=== PATIENT | female | born 1960 | race Caucasian/White ===

== ENCOUNTER 2023-10-09 08:24 | Outpatient (OUT) | payer OTHER, SELFPAY ==
[2023-10-09 08:56] LABS: Basophils Percent Auto 0.6 % (0.2-2.0); Eosinophils Absolute Auto 0.2 10^3/uL (0.0-0.7); Eosinophils Percent Auto 3.3 % (0.9-7.0); Hematocrit 36.3 % (36.0-48.0); Hemoglobin 11.7 g/dL (12.0-16.0); Immature Granulocytes Abs Auto 0.02 10^3/uL (0.00-0.03); Immature Granulocytes Pct Auto 0.3 % (0.0-0.5); Lymphocytes Absolute Auto 1.2 10^3/uL (1.2-3.8); Lymphocytes Percent Auto 19.4 % (20.5-60.0); Mean Corpuscular HGB Conc 32.2 g/dL (29.9-35.2); Mean Corpuscular Hemoglobin 31.5 pg (26.7-34.0); Mean Corpuscular Volume 97.8 fL (81.0-99.0); Mean Platelet Volume 9.7 fL (9.5-13.5); Monocytes Absolute Auto 0.5 10^3/uL (0.3-0.8); Neutrophils Absolute Auto 4.3 10^3/uL (1.4-6.5); Neutrophils Percent Auto 68.4 % (43.0-75.0); Platelet Count 184 10^3/uL (150-450); Red Blood Count 3.71 10^6/uL (4.20-5.40); Red Cell Distribution Width 13.2 % (11.0-15.0); White Blood Count 6.3 10^3/uL (4.0-11.0)
[2023-10-09 09:59] LABS: Thyroid Stimulating Hormone 1.241 uIU/mL (0.358-3.740)
== END 2023-10-09 08:25 | disposition home or self-care (01) ==
LOC: LAB 08:26
PROVIDERS: PCP Internal Medicine; Visit Provider Internal Medicine
DX: Z00.00 Encounter for general adult medical examination without abnormal findings (principal)
CPT/HCPCS: 36415; 84443; 85025

== ENCOUNTER 2023-10-28 09:04 | Outpatient (OUT) | payer OTHER, SELFPAY ==
--- NOTE | 2023-10-28 | XR_ITS ---
The [address] [address] Patient Name: MARYLU RESENDIZ MRN: [id number] date: 1960 Sex: F Assigned Patient Location: [facility] Current Patient Location: [facility] Accession/Order Number: [id number] Exam Date: 10/28/2023 09:10 Report Date: 10/28/2023 09:38 At the request of: ERA PAYNE Procedure: XR foot LT min 3V PROCEDURE: XR foot LT min 3V COMPARISON: None. HISTORY: LEFT FOOT PAIN FINDINGS: BONES:No acute fracture or dislocation. Moderate degenerative changes at the second and third tarsometatarsal joints with joint space narrowing and subchondral cystic changes without significant proliferative degenerative change. Moderate enthesopathic spurring of the calcaneus at the Achilles and plantar insertions SOFT TISSUES:Negative. No visible soft tissue swelling. EFFUSION:None visible. OTHER: Negative. XR/XR foot LT min 3V IMPRESSION: Moderate degenerative changes most significant second and third tarsometatarsal joints Electronically authenticated by: DASH SHUKLA Date: 10/28/2023 09:38
--- OUTSIDE RECORDS SUMMARY | 2023-10-28 09:08 | XMS_ITS | CCD ---
Author Name Unknown Address [address] [facility] [address] [place] [address] Organization [facility] Care Team Providers Care Panel Monitor Name Role Phone WATSON, DR LONGORIA Consulting Unavailable BALL, DR LONGORIA Attending Unavailable BALL, DR LONGORIA Admitting Unavailable BALL, DR LONGORIA Primary Care Unavailable REQUEST, DR JOSHI LISTED Admitting Unavaila ble REQUEST, DR JOSHI LISTED Consulting Unavaila ble REQUEST, DR JOSHI LISTED Attending Unavaila ble WATSON, DR LONGORIA Primary Care Unavailable Irma Mc Unavailable DO Sonido Chaudhari Primary Care Provider [phone] MD Teo Rivera Attending Provider Sonido Chaudhari Unavailable DO Sonido Chaudhari Primary Care Provider [phone] MD Irma Mc Attending Provider [phone] DO Sonido Chaudhari Primary Care Provider [phone] MD Teo Rivera Attending Provider Irma Mc Attending Unavailable Sonido Chaudhari Primary Care Unavailable Irma Mc Admitting Unavailable Teo Rivera Admitting Unavailable Teo Rivera Attending Unavailable Sonido Chaudhari Primary Care Unavailable TEO RIVERA Attending Unavailable Sonido Chaudhari Primary Care Unavailable Allergies Allergy Classification Reported Allergen(s) Allergy Type Date of Onset Reaction(s) Facility (2 sources) patient allergy list reviewed by nurse or physicia Propensity to adverse reactions Comment:Done [employer] Other (2 sources) Allergies Reconciled Propensity to adverse reactions Unknown [employer] Other (1 source) No Known Medication Allergies; Translations: [No Known Medication Allergies] Propensity to adverse reactions to drug (disorder) [facility] Repository Medications Current Medications Medication Drug Class(es) Dates Sig (Normalized) Sig (Original) 0.5 ML semaglutide 0.5 MG/ML Auto-Injector [Wegovy] (8 sources) Start: 11-02-2022 inject 0.5 mL by subcutaneous injection every week Wegovy 0.25 MG/0.5ML 0.5 mL Subcutaneous weekly for 30 day(s) Oct, Active 0.5 ML tirzepatide 5 MG/ML Auto-Injector [Mounjaro] (8 sources) Start: 09-28-2022 inject 2.5 mg by subcutaneous injection every week Mounjaro 2.5 MG/0.5ML 2.5mg Subcutaneous weekly for 28 days Sep, Active acetaminophen 325 mg / HYDROcodone bitartrate 5 mg oral tablet (3 sources) Opioid Agonist Start: 03-06-2021 take 1 tablet by mouth every four to six hours Hydrocodone-Acetamin ophen Active 1 - 2 TAB PO EVERY 4-6 HOURS 50 7 March 06, 2021 atorvastatin 20 mg oral tablet (15 sources) HMG-CoA Reductase Inhibitor take 1 tablet by mouth once daily Atorvastatin Calcium 20 MG Take 1 tablet by mouth once daily for 30 Active azithromycin 250 mg oral tablet (3 sources) Macrolide Antimicrobial Start: 09-10-2023 Azithromycin 250 MG as directed Orally daily for 5 days Aug, Active cholecalciferol 0.025 mg oral tablet (3 sources) Vitamin D Start: 08-24-2018 take 1 tablet by mouth once daily Cholecalciferol (Vitamin D3) (Vitamin D3) 1,000 unit Tablet Active 1000 UNIT PO Daily August 24, 2018 1:00am doxycycline hyclate 100 mg oral capsule (11 sources) Tetracycline-class Drug Start: 09-28-2022 take 1 capsule by mouth twice daily Doxycycline Hyclate 100 MG 1 capsule Orally twice daily for 7 days Sep, Active Start: 03-06-2021 take 100 mg by mouth twice daily Doxycycline Hyclate Active 100 MG PO Twice daily 10 5 March 06, 2021 12:00am escitalopram 10 mg oral tablet (12 sources) Serotonin Reuptake Inhibitor take 1 tablet by mouth every twenty-four hours Escitalopram Oxalate 10 MG 1 tablet Orally Once a day Active Glucos Sul 5mwo-Apw-Gedrp-C-Mn (Glucosamine Chondroitin) 550-30-1 mg Capsule (3 sources) Start: 02-26-20 21 take 1 capsule by mouth once daily Glucos Sul 0wgc-Lwh-Duduj-C-Mn (Glucosamine Chondroitin) 550-30-1 mg Capsule Active 1 CAP PO Daily February 25, 2021 12:00am levothyroxine sodium 0.137 mg oral tablet (19 sources) l-Thyroxine Start: 08-24-20 18 take 137 ug by mouth once daily Levothyroxine Active 137 MCG PO Daily August 24, 2018 1:00am take 1 tablet by mouth once estephania y Levothyroxine Sodium 137 MCG Take 1 tablet by mouth once daily Active lisinopril 5 mg oral tablet (19 sources) Angiotensin Converting Enzyme Inhibitor Start: 02-25-2021 take 5 mg by mouth once daily Lisinopril Active 5 MG PO Daily February 25, 2021 12:00am Multivitamin preparation (3 sources) Start: 08-24-2018 take 1 tablet by mouth once daily Multivitamin Active 1 TAB PO Daily August 24, 2018 1:00am predniSONE 20 mg oral tablet (2 sources) Start: 01-11-2023 predniSONE 20 MG 1 tablet Orally tid w/ food x 3 days, then bid w/ food x 3 days, then qd w/ food x 3 days for 9 Dec, Active triamcinolone acetonide 0.001 mg/mg topical ointment (20 sources) Corticosteroid Start: 01-11-2023 Triamcinolone Acetonide 0.1 % 1 application Externally Twice a day for 14 days Dec, Active Start: 03-28-2019 Kenalog -40 mg Mar, 40 mg Start: 02-08-2018 Kenalog -40 mg January, 10 mg zolpidem tartrate 5 mg oral tablet (11 sources) gamma-Aminobutyric Acid-ergic Agonist Start: 01-25-2023 take 1 tablet by mouth at bedtime as needed Zolpidem Tartrate 5 MG 1 tablet at bedtime as needed Orally PRN for 30 days January, Active take 1 tablet by christopher th every twenty-four hours Zolpidem Tartrate 5 MG 1 tablet at bedtime as needed Orally Once a day Active {20 (nirmatrelvir 150 MG Ora l Tablet) / 10 (ritonavir 100 MG Oral Tablet) } Pack [Paxlovid 5-Day] (7 sources) take 3 tablets by mo uth every twelve hours Paxlovid (300/100) 20 x 150 MG & 10 x 100MG 3 tablets Orally Twice a day for 5 days Active Completed/Discontinued Medications Medication Drug Class(es) Dates Sig (Normalized) Sig (Original) alendronic acid 70 mg oral tablet (3 sources) Bisphosphonate Start: 08-24-2018 End: 02-25-2021 take 70 mg by mouth every week Alendronate Discontinued 70 MG PO every week August 24, 2018 1:00am February 25, 2021 2:10pm amoxicillin 875 mg / clavulanate 125 mg oral tablet (7 sources) Penicillin-class Antibacterial Start: 03-01-2023 take 1 tablet by mouth every twelve hours Amoxicillin-Pot Clavulanate 875-125 MG 1 tablet Orally every 12 hrs for 10 day(s) Feb, Not-Taking/PRN thiamine 250 mg oral tablet (3 sources) Start: 08-24-2018 End: 02-25-2021 take 1 tablet by mouth once daily Thiamine Hcl (Vitamin B1) (Vitamin B-1) 250 mg Tablet Discontinued 250 MG PO Daily August 24, 2018 1:00am February 25, 2021 2:10pm Problems Active Problems Problem Classification Problem Date Documented Date Episodic/Chronic Acute bronchitis (4 sources) Acute bronchitis due to other specified organisms; Translations: [Acute bronchitis] Episodic Allergic reactions (18 sources) Inflammatory dermatosis; Translations: [Other specified dermatitis] Episodic Anxiety disorders (17 sources) Generalized anxiety disorder; Translations: [Generalized anxiety disorder] Chronic Chronic obstructive pulmonary disease and bronchiectasis (17 sources) Bronchitis; Translations: [Bronchitis, not specified as acute or chronic] Episodic Disorders of lipid metabolism (20 sources) Familial hypercholesterolemia; Translations: [Pure hypercholesterolemia] Onset: 01-29-2015 Chronic Esophageal disorders (8 sources) Esophageal reflux finding; Translations: [Esophageal reflux] Onset: 02-12-2015 Chronic Esophageal disorders (11 sources) Esophageal disorders; Translations: [Gastroesophageal reflux disease with esophagitis without hemorrhage] Essential hypertension (20 sources) Essential hypertension; Translations: [Essential (primary) hypertension] Chronic Immunizations and screening for infectious disease (2 sources) Vaccination given; Translations: [Encounter for immunization] Episodic Inflammation; infection of eye (except that caused by tuberculosis or sexually transmitteddisease) (2 sources) Acute conjunctivitis; Translations: [Unspecified acute conjunctivitis, unspecified eye] Episodic Joint disorders and dislocations; trauma-related (2 sources) Chondromalacia of patella; Translations: [Chondromalacia of patella] Onset: 11-12-2015 Chronic Menopausal disorders (2 sources) Primary ovarian failure; Translations: [Other primary ovarian failure] Onset: 06-08-2017 Chronic Miscellaneous mental health disorders (15 sources) Primary insomnia; Translations: [Primary insomnia] Chronic Mycoses (2 sources) Tinea corporis; Translations: [Tinea corporis] Episodic Nonmalignant breast conditions (2 sources) Fibrocystic disease of breast; Translations: [Diffuse cystic mastopathy of unspecified breast] Onset: 01-29-2015 Chronic Osteoarthritis (20 sources) Osteoarthrosis of the carpometacarpal joint of the thumb; Translations: [Unilateral primary osteoarthritis of first carpometacarpal joint, right hand] Onset: 07-08-2021 Resolved: 07-08-2021 Chronic Osteoporosis (15 sources) Primary osteoporosis; Translations: [Age-related osteoporosis without current pathological fracture] Chronic Other connective tissue disease (16 sources) Trigger thumb of right hand; Translations: [Trigger thumb, right thumb] Episodic Other connective tissue disease (1 source) Pain in right hand Episodic Other nervous system disorders (16 sources) Carpal tunnel syndrome of left wrist; Translations: [Carpal tunnel syndrome, left upper limb] Chronic Other nervous system disorders (16 sources) Carpal tunnel syndrome of right wrist; Translations: [Carpal tunnel syndrome, right upper limb] Chronic Other nervous system disorders (2 sources) Carpal tunnel syndrome, right upper limb; Translations: [Right carpal tunnel syndrome G56.01] Onset: 07-08-2021 Resolved: 07-08-2021 Chronic Other nervous system disorders (1 source) Carpal tunnel syndrome, left upper limb; Translations: [Carpal tunnel syndrome, left G56.02] Onset: 07-08-2021 Resolved: 07-08-2021 Chronic Other nervous system disorders (3 sources) Carpal tunnel syndrome; Translations: [Carpal tunnel syndrome, unspecified upper limb] 03-06-2021 Chronic Other nervous system disorders (2 sources) Meralgia paresthetica; Translations: [Meralgia paresthetica] Onset: 03-12-2017 Chronic Other nervous system disorders (3 sources) Pain in limb; Translations: [Other acute postprocedural pain] 03-06-2021 Episodic Other nutritional; endocrine; and metabolic disorders (17 sources) Obesity; Translations: [Obesity, unspecified] Chronic Other nutritional; endocrine; and metabolic disorders (3 sources) Obesity, unspecified Chronic Other nutritional; endocrine; and metabolic disorders (2 sources) Simple obesity ; Translations: [Other obesity due to excess calories] Onset: 01-29-2015 Chronic Other nutritional; endocrine; and metabolic disorders (4 sources) Body mass index 30+ - obesity; Translations: [Body mass index 30.0-30.9, adult] Onset: 01-29-2015 Chronic Other nutritional; endocrine; and metabolic disorders (2 sources) Obese class I; Translations: [Body mass index 32.0-32.9, adult] Onset: 01-29-2015 Chronic Other screening for suspected conditions (not mental disorders or infectious disease) (6 sources) Patient encounter status; Translations: [Encounter for screening for malignant neoplasm of colon] Onset: 01-29-2015 08-26-2018 Episodic Other upper respiratory infections (6 sources) Acute maxillary sinusitis; Translations: [Acute maxillary sinusitis, unspecified] Onset: 02-12-2015 Episodic Spondylosis; intervertebral disc disorders; other back problems (6 sources) Cervical spondylosis without myelopathy; Translations: [Spondylosis without myelopathy or radiculopathy, cervical region] Onset: 03-12-2017 Chronic Syncope (17 sources) Vasovagal syncope; Translations: [Syncope and collapse] Episodic Systemic lupus erythematosus and connective tissue disorders (2 sources) Autoimmune disease; Translations: [Autoimmune disease, not elsewhere classified] Onset: 01-29-2015 Chronic Thyroid disorders (20 sources) Autoimmune thyroiditis; Translations: [Autoimmune thyroiditis] Onset: 01-29-2015 Chronic Unclassified (1 source) Encounter for screening mammogram for malignant neoplasm of breast; Translations: [Encounter for screening mammogram for malignant neoplasm of breast] Onset: 05-26-2023 Unclassified (1 source) Pain in right hand; Translations: [Pain in right hand] Onset: 01-08-2023 Past or Other Problems Problem Classification Problem Date Documented Date Episodic/Chronic Bacterial infection; unspecified site (2 sources) Bacterial infectious disease; Translations: [Bacterial infection, unspecified, in conditions classified elsewhere and of unspecified site] Onset: 04-22-2017 Episodic Other connective tissue disease (1 source) Pain in right finger(s); Translations: [Pain of right thumb M79.644] Onset: 07-08-2021 Resolved: 07-08-2021 Episodic Other connective tissue disease (2 sources) Pain in left lower limb; Translations: [Pain in left leg] Onset: 03-12-2017 Episodic Other non-traumatic joint disorders (1 source) Pain in left wrist; Translations: [Left wrist pain M25.532] Onset: 07-08-2021 Resolved: 07-08-2021 Episodic Other non-traumatic joint disorders (1 source) Pain in right wrist; Translations: [Right wrist pain M25.531] Onset: 07-08-2021 Resolved: 07-08-2021 Episodic Other nutritional; endocrine; and metabolic disorders (2 sources) Overweight; Translations: [Overweight] Onset: 01-29-2015 Episodic Other nutritional; endocrine; and metabolic disorders (2 sources) Body mass index 25-29 - overweight; Translations: [Body mass index 29.0-29.9, adult] Onset: 01-29-2015 Episodic Residual codes; unclassified (1 source) Other specified postprocedural states; Translations: [Other specified postprocedural states Z98.890] Onset: 07-08-2021 Resolved: 07-08-2021 Episodic Residual codes; unclassified (2 sources) Sleep disorder; Translations: [Persistent disorder of initiating or maintaining sleep] Onset: 02-14-2019 Episodic Sprains and strains (2 sources) Strain of muscle of left hip; Translations: [Strain of muscle, fascia and tendon of left hip, initial encounter] Onset: 02-19-2017 Episodic Unclassified (2 sources) Long-term current use of drug therapy; Translations: [Long-term (current) use of other medications] Onset: 03-22-2017 Unclassified (2 sources) Exposure to acute respiratory syndrome coronavirus 2; Translations: [Contact with and (suspected) exposure to COVID-19] Resolved: 07-08-2020 Viral infection (2 sources) Viral disease; Translations: [Unspecified viral infection, in conditions classified elsewhere and of unspecified site] Onset: 02-14-2019 Episodic Viral infection (15 sources) Disease caused by 2019-nCoV; Translations: [COVID-19] Results Test Name Value Interpretation Reference Range Facility Consent [facility] 08-24-2023 Consent Forms [id number] 1.00OTGTIFF Normal [facility] CMP Standardon 07-15-2023 eGFR Non AA >60 Invalid Interpretation Code [facility] Comment on above: Performed By: #### 2 [id number], 4013421, 9852181, 2660631, [id number], [id number], 6372412 #### [facility] (DEFAULT) [address] [place] [address] eGFR AA >60 Invalid Interpretation Code [facility] Comment on above: Performed By: #### 2 876132, 0844782, 6728179, 0086781, [id number], [id number], 1262408 #### [facility] (DEFAULT) [address] [place] [address] Albumin [Mass/Vol] 4.0 g/dL Normal 3.5-5.0 [facility] Comment on above: Performed By: #### 2 013109, 9786825, 2485857, 2718934, [id number], [id number], 4683268 #### [facility] (DEFAULT) [address] [place] [address] 97100 Albumin/Globulin [Mass ratio] 1.1 {ratio} Low 1.4-2.6 [facility] Comment on above: Performed By: #### 2 807007, 4815953, 0713009, 9866552, [id number], [id number], 2120691 #### [facility] (DEFAULT) [address] [place] [address] 17683 Alk Phos 85 IU/L Normal 32-91 [facility] Comment on above: Performed By: #### 2 939141, 7420435, 0081516, 4363613, 8305498680, [id number], 8889978 #### [facility] (DEFAULT) [address] [place] [address] 83249 ALT [Catalytic activity/Vol] 45.0 U/L Normal 14.0-54.0 [facility] Comment on above: Performed By: #### 2 664779, 6367684, 7927082, 3623420, 7832382477, 1825353157, 0264055 #### [facility] (DEFAULT) [address] [place] [address] 37644 Anion gap [Moles/Vol] 10.9 mmol/L Normal 5.0-19.0 [facility] Comment on above: Performed By: #### 2 874440, 4588182, 8385881, 9676133, 2517291720, [id number], 0224456 #### [facility] (DEFAULT) [address] [place] [address] 17212 AST [Catalytic activity/Vol] 31 U/L Normal 15-41 [facility] Comment on above: Performed By: #### 2 170465, 3492457, 1791617, 2218379, 6099891697, 5962738290, 1129359 #### [facility] (DEFAULT) [address] [place] [address] 79805 Bili Total 0.5 mg/dL Normal 0.3-1.2 [facility] Comment on above: Performed By: #### 2 775835, 7510479, 8422346, 1558510, 8270938584, 2373054869, 6088700 #### [facility] (DEFAULT) [address] [place] [address] 35201 Calcium [Mass/Vol] 9.4 mg/dL Normal 8.9-10.3 [facility] Comment on above: Performed By: #### 2 359404, 0058121, 8031464, 5267599, 7062008075, 7429659329, 5282621 #### [facility] (DEFAULT) [address] [place] [address] 91043 Chloride [Moles/Vol] 104 mmol/L Normal 101-111 [facility] Comment on above: Performed By: #### 2 162286, 1106438, 6988782, 8663164, 9850188837, 8541403235, 9865336 #### [facility] (DEFAULT) [address] [place] [address] 31718 CO2 [Moles/Vol] 26 mmol/L Normal 21-32 [facility] Comment on above: Performed By: #### 2 552488, 1811740, 6087514, 1134376, 1362123246, 2440428901, 0339633 #### [facility] (DEFAULT) [address] [place] [address] 62277 Creatinine [Mass/Vol] 0.77 mg/dL Normal 0.60-1.30 [facility] Comment on above: Performed By: #### 2 009485, 4970968, 8683662, 1206076, 1601189854, 1305824457, 7512073 #### [facility] (DEFAULT) [address] [place] [address] 71525 Globulin (S) [Mass/Vol] 3.4 g/dL Normal 1.5-4.3 [facility] Comment on above: Performed By: #### 2 630565, 5844311, 7797944, 2195686, 1313254386, [id number], 4593719 #### [facility] (DEFAULT) [address] [place] [address] 73150 Glucose [Mass/Vol] 100.0 mg/dL Normal 74.0-118.0 [facility] Comment on above: Performed By: #### 2 217966, 2590082, 5925871, 8244665, 6980703563, 7193558218, 6821694 #### [facility] (DEFAULT) [address] [place] [address] 23954 Osmolality 277 mOsm/L Invalid Interpretation Code [facility] Comment on above: Performed By: #### 2 089916, 4071339, 8858187, 3811687, 4388975561, 5089114052, 6972073 #### [facility] (DEFAULT) [address] [place] [address] 45688 Potassium [Moles/Vol] 3.9 mmol/L Normal 3.6-5.1 [facility] Comment on above: Performed By: #### 2 829321, 6738641, 3392061, 8742288, 0925958370, 1764069703, 5312148 #### [facility] (DEFAULT) [address] [place] [address] 33154 Protein [Mass/Vol] 7.4 g/dL Normal 6.5-8.1 [facility] Comment on above: Performed By: #### 2 632313, 7493762, 1239233, 6239276, 3364983686, 9288839605, 6784615 #### [facility] (DEFAULT) [address] [place] [address] 88655 Sodium [Moles/Vol] 137.0 mmol/L Normal 136.0-144.0 [facility] Comment on above: Performed By: #### 2 826464, 5589522, 9682915, 3014450, 2518231912, 0239928234, 1228934 #### [facility] (DEFAULT) [address] [place] [address] 89665 Urea nitrogen [Mass/Vol] 21 mg/dL Normal 8-26 [facility] Comment on above: Performed By: #### 2 337764, 0123975, 2224476, 2802062, 0787189367, 8984216881, 8721826 #### [facility] (DEFAULT) [address] [place] [address] 97013 Urea nitrogen/Creatini ne [Mass ratio] 27.2 mg/mg High 4.6-16.2 [facility] Comment on above: Performed By: #### 2 823866, 2729950, 9149416, 2818437, 0614079272, 1839181691, 9192855 #### [facility] (DEFAULT) [address] [place] [address] 24489 GGTon 07-15-2023 Gamma glutamyl transferase [Catalytic activity/Vol] 61.0 U/L High 7.0-50.0 [facility] Comment on above: Performed By: #### 2 716619, 6234046, 6453616, 7711587, 9298340671, 4418125608, 4068665 #### [facility] (DEFAULT) [address] [place] [address] 62337 Iron Levelon 07-15-2023 Iron [Mass/Vol] 77.0 ug/dL Normal 28.0-170.0 [facility] Comment on above: Performed By: #### 2 624858, 7273293, 1701348, 6228682, 4964373517, 1234155567, 3486360 #### [facility] (DEFAULT) [address] [place] [address] 16775 LDHon 07-15-2023 LDH 161.0 IU/L Normal 98.0-192.0 [facility] Comment on above: Performed By: #### 2 775536, 6042595, 7161779, 5606132, 6976875680, 4924570189, 1621511 #### [facility] (DEFAULT) [address] [place] [address] 64888 Lipid Panel Standardon 07-15 Cholesterol [Mass/Vol] 226.0 mg/dL High 66.0-200.0 [facility] Comment on above: Performed By: #### 2 084002, 5049616, 8422343, 6097855, 7223562806, 7128982930, 2324368 #### [facility] (DEFAULT) [address] [place] [address] 28555 Cholesterol in HDL [Mass/Vol] 44 mg/dL Normal 40-71 [facility] Comment on above: Performed By: #### 2 522939, 3846339, 9892873, 8632376, 4130090355, 7660915279, 4164944 #### [facility] (DEFAULT) [address] [place] [address] 13745 Cholesterol in LDL [Mass/Vol] 121 mg/dL High 1-100 [facility] Comment on above: Performed By: #### 2 571022, 1040167, 3858399, 5256753, 3655863989, 1620071227, 5999302 #### [facility] (DEFAULT) [address] [place] [address] 69321 Cholesterol.total /Cholesterol in HDL [Mass ratio] 5.1 {ratio} High 0.0-4.5 [facility] Comment on above: Performed By: #### 2 203605, 9940641, 5191964, 2661806, 4214979965, 7365563974, 6704425 #### [facility] (DEFAULT) [address] [place] [address] 22240 Triglyceride [Mass/Vol] 303.0 mg/dL High 0.0-150.0 [facility] Comment on above: Performed By: #### 2 205727, 5379535, 5615473, 4122461, 2477675762, 0979329440, 2653357 #### [facility] (DEFAULT) [address] [place] [address] 51228 VLDL. 61 mg/dL High 5-40 [facility] Comment on above: Performed By: #### 2 538139, 1074770, 2937282, 0104945, 3853206034, 4162455936, 9548631 #### [facility] (DEFAULT) [address] [place] [address] 89526 Phoson 07-15-2023 Phosphate [Mass/Vol] 3.7 mg/dL Normal 2.5-4.6 [facility] Comment on above: Performed By: #### 2 129443, 5254670, 6411296, 7856821, 3324751650, 1124808277, 7253443 #### [facility] (DEFAULT) [address] [place] [address] 06449 Uric Acidon 07-15-2023 Urate [Mass/Vol] 4.0 mg/dL Normal 2.6-8.0 [facility] Comment on above: Performed By: #### 2 679651, 1710324, 0215205, 7526112, 2537300890, 7185080936, 0663002 #### [facility] (DEFAULT) [address] [place] [address] 30575 MM screening mammo BI w/CADo n 05-26-2023 MM screening mammo BI w/CAD [facility] Main [address] [address] Mammography Report Signed Patient: Naida Mane MR#: [id number] 19 : 1960 Acct:[id number] Age/Sex: 62 / F ADM Date: 05/26/23 Loc: [place] Room: Type: GUTHRIE T[place]AN[place] [facility] Attending Dr: Teo Rivera MD Copies to: MD Sonido BELLAMY DO Ordering Provider: TEO RIVERA MD Date of Service: 05/26/23 MM/MM screening mammo BI w/CAD: screening;Breast cancer screening CLINICAL DATA: Screening for malignancy. BILATERAL SCREENING MAMMOGRAMS - FULL FIELD DIGITAL WITH TOMOSYNTHESIS AND CAD Tomosynthesis craniocaudal and mediolateral oblique views of both breasts were obtained using low- dose digital technique. Comparison is made to prior studies from April 25, 2019 through May 15, 2022. This examination was reviewed with the aid of CAD. There are scattered fibroglandular densities. Benign and vascular calcifications are present. Benign-appearing nodularity is seen. Biopsy marking clips are visualized at the upper outer left breast. There are no developing masses, typically malignant calcifications or architectural distortion. There has been no significant interval change. MM/MM screening mammo BI w/CAD IMPRESSION: NO MAMMOGRAPHIC EVIDENCE OF MALIGNANCY. ROUTINE FOLLOW-UP IS RECOMMENDED IN ONE YEAR. RESULT CODE: 2 Benign Findings(s) DENSITY CODE: 2 (approximately 25-50% glandular) FOLLOW UP: 1YR The false-negative rate of mammography is approximately 10-percent. Management of a palpable abnormality must be based on clinical grounds. Patient was entered into a reminder system with a target due date for the next mammogram. Impression dictated by: Paula Wiggins M.D.05/26/2023 3:54 PM Dictation Location: [facility] Transcribed By: [facility] 05/26/23 1554 Dictated By: Paula Wiggins MD 05/26/23 1551 Signed By: 05/26/23 1554 Normal [facility] XR hand RT min 3V*on 023 XR hand RT min 3V* [facility] Main [address] [address] XRay Report Signed Patient: Naida Mane MR#: [id number] 19 : 1960 Acct:[id number] Age/Sex: 62 / F ADM Date: 01/08/23 Loc: [facility] Room: Type: [facility] Attending Dr: Irma Mc MD Copies to: Irma Mc MD Ordering Provider: Irma Mc MD Date of Service: 01/08/23 XR/XR hand RT min 3V*: Right hand pain RIGHT HAND - 4 views CLINICAL DATA: Generalized hand pain for the past couple years. No injury. COMPARISON: 02/28/2019 AP, lateral and oblique views were obtained along with supplemental AP view of the thumb. There is no acute fracture or dislocation. Slight joint space narrowing with subchondral sclerosis, cystic change and hypertrophy are seen at the lateral intercarpal and first carpal metacarpal joints. There is minor cystic change at the ulnar styloid. There are no significant soft tissue abnormalities. XR/XR hand RT min 3V* IMPRESSION: DEGENERATIVE CHANGES AT THE WRISTS, GREATER LATERALLY. NO ACUTE BONY FINDINGS. Impression dictated by: Paula Wiggins M.D.01/08/2023 12:39 PM Dictation Location: [place] [address] Transcribed By: [facility] 01/08/23 1239 Dictated By: Paula Wiggins MD 01/08/23 1235 Signed By: 01/08/23 1239 [facility] CPKon 09-04-2021 CK [Catalytic activity/Vol] 54 U/L Normal 30-135 [facility] Comment on above: Performed By: #### C K #### [facility] [address] [address] [address] Nancy Kincaid CREATININEon 09-04-2021 Creatinine [Mass/Vol] 0.91 mg/dL Normal 0.52-1.04 [facility] Comment on above: Performed By: #### C DARRELL MURPHY, ALT #### [facility] [address] [address] [address] Nancy Kincaid EGFR-AF [place]ER >60 Normal >=60 [facility] Comment on above: Performed By: #### C DARRELL MURPHY, ALT #### [facility] [address] [place], [place] [address] Dr. Nancy Kincaid EGFR-NON AF [place]ER >60 Normal >=60 [facility] Comment on above: Performed By: #### C SPENCER MURPHYL, ALT #### [facility] [address] [place], [place] [address] Dr. Nancy Kincaid DIRECT LDLon 09-04-2021 Cholesterol in LDL [Mass/Vol] 86 mg/dL Normal [facility] Comment on above: Performed By: #### C SPENCER MURPHYL, ALT #### [facility] [address] [place], [place] [address] Dr. Nancy Kincaid DLDL NORMAL SEE BELOW Normal [facility] Comment on above: Result Comment: <100 mg/dl OPTIMAL 100 - 129 mg/dl NEAR OR ABOVE OPTIMAL 130 - 159 mg/dl BORDERLINE HIGH 160 - 189 mg/dl HIGH >190 mg/dl VERY HIGH Performed By: #### DARRELL ACOSTA, ALT #### [facility] [address] [place], [place] [address] Dr. Nancy Kincaid SGPTon 09-04-2021 ALT [Catalytic activity/Vol] 40 U/L Normal [facility] Comment on above: Performed By: #### SPENCER ACOSTAL, ALT #### [facility] [address] [place], [place] [address] Dr. Nancy Kincaid XR hand LT min 3V*on 021 XR hand LT min 3V* [facility] [employer] Other XR hand LT min 3V* [facility] [employer] Other XR hand LT min 3V* [address] [place] [address] [employer] Other XR hand LT min 3V* [place] [address] [employer] Other XR hand LT min 3V* XRay Report Digital [facility] [employer] Other XR hand LT min 3V* Signed [employer] Other XR hand LT min 3V* Patient: Naida Mane MR#: [id number] [employer] Other XR hand LT min 3V* 19 [employer] Other XR hand LT min 3V* : 1960 Acct:[id number] [employer] Other XR hand LT min 3V* Age/Sex: 61 / F ADM Date: 07/08/21 [employer] Other XR hand LT min 3V* Loc: [facility] Room: Type: [facility] [employer] Other XR hand LT min 3V* Attending Dr: Irma Mc MD [employer] Other XR hand LT min 3V* Ordering Provider: Irma Mc MD [employer] Other XR hand LT min 3V* Date of Service: 07/08/21 [employer] Other XR hand LT min 3V* XR/XR hand LT min 3V*: Arthritis of carpometacarpal (CMC) joint of left [employer] Other XR hand LT min 3V* thumb [employer] Other XR hand LT min 3V* Copies to: Irma Mc MD [employer] Other XR hand LT min 3V* 4 viewsLEFT hand plain film [employer] Other XR hand LT min 3V* COMPARISON:04/09/21 [employer] Other XR hand LT min 3V* HISTORY:Status post LEFT trapezium ectomy. [employer] Other XR hand LT min 3V* There is resection of the trapezium. There is no new findings. [employer] Other XR hand LT min 3V* XR/XR hand LT min 3V* [employer] Other XR hand LT min 3V* IMPRESSION:Stable postoperative changes. [employer] Other XR hand LT min 3V* Impression dictated by: Bal Harley M.D.07/08/2021 10:31 AM [employer] Other XR hand LT min 3V* Dictation Location: [place] [address] [employer] Other XR hand LT min 3V* Transcribed By: [facility] 07/08/21 1031 [employer] Other XR hand LT min 3V* Dictated By: Bal Harley DO 07/08/21 1029 [employer] Other XR hand LT min 3V* Signed By: [employer] Other XR hand LT min 3V* 07/08/21 1031 [employer] Other Vital Signs Date Time Vital Sign Value Performing Clinician Facility 07-19-2023 13:30-0400 Body height 167.64 cm Sonido Ball Other [employer] Other 07-19-2023 13:30-0400 Body mass index (BMI) [Ratio] 32.36 kg/m2 Sonido Ball Other [employer] Other 07-19-2023 13:30-0400 Body weight 90.95 kg Sonido Ball Other [employer] Other 07-19-2023 13:30-0400 Diastolic blood pressure 73 mm[Hg] Sonido Ball Other [employer] Other 07-19-2023 13:30-0400 Respiratory rate 12 /min Sonido Ball Other [employer] Other 07-19-2023 13:30-0400 Systolic blood pressure 112 mm[Hg] Sonido Ball Other [employer] Other 01-11-2023 14:30-0400 Body height 167.64 cm Sonido Ball Other [employer] Other 01-11-2023 14:30-0400 Body mass index (BMI) [Ratio] 33.76 kg/m2 Sonido Ball Other [employer] Other 01-11-2023 14:30-0400 Body weight 94.89 kg Sonido Ball Other [employer] Other 01-11-2023 14:30-0400 Diastolic blood pressure 78 mm[Hg] Sonido Ball Other [employer] Other 01-11-2023 14:30-0400 Respiratory rate 16 /min Sonido Ball Other [employer] Other 01-11-2023 14:30-0400 Systolic blood pressure 126 mm[Hg] Sonido Ball Other [employer] Other 09-28-2022 13:15-0500 Body height 167.64 cm Sonido Ball Other [employer] Other 09-28-2022 13:15-0500 Body mass index (BMI) [Ratio] 33.57 kg/m2 Sonido Ball Other [employer] Other 09-28-2022 13:15-0500 Body weight 94.35 kg Sonido Ball Other [employer] Other 07-08-2021 09:30-0400 Body height 167.64 cm Irma Mc Other [employer] Other Encounters Encounter Date Encounter Type Care Provider Facility Start: 10-11-2023 End: 10-11-2023 ambulatory Sonido Ball Other [employer] Other Start: 10-11-2023 Telephone encounter Sonido AVELAR [facility] Start: 10-09-2023 End: 10-09-2023 ambulatory Sonido Chaudhari Other [employer] Other Start: 10-09-2023 Telephone encounter Sonido Chaudhari [facility] Start: 09-10-2023 End: 09-10-2023 ambulatory Sonido Chaudhari Other [employer] Other Start: 09-10-2023 Office outpatient vi sit 15 minutes Sonido Chaudhari [facility] Start: 08-17-2023 End: 08-17-2023 ambulatory TEO RIVERA Not Available Start: 07-20-2023 End: 07-21-2023 ambulatory Sonido Chaudhari Facility:[facility] Start: 07-19-2023 End: 07-19-2023 ambulatory Sonido Chaudhari Other [employer] Other Start: 07-19-2023 Encounter for genera l adult medical examination without abnormal findings Sonido Chaudhari [facility] Start: 07-19-2023 Periodic preventive med est patient 40-64yrs Sonido Chaudhari [facility] Start: 06-28-2023 End: 06-28-2023 ambulatory Sonido Chaudhari Other [employer] Other Start: 06-28-2023 Telephone encounter Sonido AVELAR [facility] Start: 05-28-2023 End: 05-28-2023 ambulatory Sonido Chaudhari Other [employer] Other Start: 05-28-2023 Telephone encounter Sonido AVELAR [facility] Start: 05-26-2023 End: 05-26-2023 ambulatory Teo Rivera Facility:[facility] Start: 05-26-2023 End: 05-26-2023 ambulatory DO Sonido Chaudhari Work Phone: [facility] Work Phone: Start: 05-26-2023 End: 05-26-2023 Patient encounter procedure DO Sonido Ball Work Phone: [facility] Work Phone: Start: 03-01-2023 End: 03-01-2023 ambulatory Sonido Ball Other [employer] Other Start: 03-01-2023 Telephone encounter Sonido Ball [facility] Start: 01-25-2023 End: 01-25-2023 ambulatory Sonido Ball Other [employer] Other Start: 01-25-2023 Telephone encounter Sonido Ball [facility] Start: 01-11-2023 End: 01-11-2023 ambulatory Sonido Ball Other [employer] Other Start: 01-11-2023 Office outpatient vi sit 15 minutes Sonido Ball [facility] Start: 01-08-2023 Office outpatient vi sit 15 minutes Irma Mc [facility] Start: 01-08-2023 End: 01-08-2023 ambulatory Irma Mc Facility:[facility] Start: 01-08-2023 End: 01-08-2023 ambulatory DO Sonido Ball Work Phone: [facility] Work Phone: Start: 01-08-2023 End: 01-08-2023 Patient encounter procedure DO Sonido Ball Work Phone: [facility] Start: 12-28-2022 End: 12-28-2022 ambulatory Osnido Ball Other [employer] Other Start: 12-28-2022 Telephone encounter Sonido Ball [facility] Start: 11-02-2022 End: 11-02-2022 ambulatory Sonido Ball Other [employer] Other Start: 11-02-2022 Telephone encounter Sonido Ball [facility] Start: 10-09-2022 End: 10-09-2022 ambulatory Sonido Chaudhari Other [employer] Other Start: 10-09-2022 Telephone encounter Sonido AVELAR [facility] Start: 09-28-2022 ([facility]) [facility] Sonido Chaudhari [facility] Start: 09-28-2022 End: 09-28-2022 ambulatory Sonido Chaudhari Other [employer] Other Start: 07-10-2022 Adult health examination Sonido Chaudhari Other [employer] Other Start: 05-15-2022 End: 05-15-2022 Patient encounter procedure DO Sonido Chaudhari Work Phone: [facility] Start: 09-04-2021 End: 09-05-[address] SONIDO CHAUDHARI Facility:[facility] Start: 07-08-2021 Office outpatient vi sit 15 minutes Irma Mc [facility] Start: 11-29-2020 End: 11-30-[address] JOSHI LISTED REQUEST Facility:[facility] Procedures Date Procedure Procedure Detail Performing Clinician Start: 05-26-2023 Screening mammograph y of bilateral breasts DO Sonido Chaudhari Work Phone: Start: 01-08-2023 Plain X-ray of right hand DO Sonido Chaudhari Work Phone: Start: 05-15-2022 Screening mammograph y of bilateral breasts DO Sonido Chaudhari Work Phone: Start: 07-22-2018 Screening for malign ant neoplasm of colon Sonido Chaudhari Other Start: 11-12-2015 General examination of patient Sonido Chaudahri Other Depression screening Sapna Chaudhari Other Depression screening Sapna Chaudhari Other Immunizations Immunization Date Immunization Notes Care Provider Jhoan pan 11-29-2020 COVID-19 Ad26.COV2.S (Marianela) DO Sonido Chaudhari Work Phone: [facility] 07-06-2019 influenza virus vaccine, split virus (incl. purified surface antigen) Sonido Chaudhari Other [employer] Other 03-28-2019 Kenalog -40 mg Irma Stephenson y Other [employer] Other 02-08-2018 Kenalog -40 mg Irma Stephenson y Other [employer] Other 04-20-2016 diphtheria, tetanus toxoids and acellular pertussis vaccine, unspecified formulation Sonido Chaudhari Other [employer] Other Payers Date Payer Category Payer Self-pay 1960 Unknown [id number] 1960 Unknown [id number] [id number] 1960 Unknown [id number] Unknown [id number] [id number] [id number] Unknown [id number] [id number] Unknown [id number] [id number] Social History Date Type Detail Facility Unknown if ever smoked [employer] Other Sex Assigned At Sex Assigned At Bir th [employer] Other Start: 03-06-2021 Tobacco smoking status NHIS Never smoked tobacco (finding) [facility] Start: 1960 Sex Assigned At Female F [facility] Medical Equipment Procedure Code Equipment Code Equipment Origin al Text Equipment Identifier Dates Trapeziectomy Tendon/ligament bone anchor, non-bioabsorbable [id number] FDA Start: 03-06-2021 Clinical Notes 07-08-2021 to 09-10-2023 Note Date & Type Note Facility 09-10-2023 Evaluation note Encounter Date Diagnosis Assessment Notes Aug, Acute bronchitis due to other specified organisms (ICD-10 - J20.8) Instructed to use Robitussin or Mucinex for cough, saline or Flonase NS for congestion, Tylenol for pain and fever. Aug, Primary hypertension (ICD-10 - I10) This patient is instructed to consume a healthy, low-fat, low-salt diet. They are also encouraged to continue exercise to achieve/maint ain a normal BMI. Avoid Sudafed in cold medication [employer] Other 10-30-2023 Evaluation note* Encounter Date Diagnosis Assessment Notes Treatment Notes Treatment Clinical Notes Jun, Wellness examination (ICD-10 - Z00.00) Healthy diet and exercise. Reviewed age-appropriate preventive testing recommended. Jun, Primary hypertension (ICD-10 - I10) This patient is instructed to consume a healthy, low-fat, low-salt diet. They are also encouraged to continue exercise to achieve/maintain a normal BMI. Jun, Hypercholesteremia (ICD-10 - E78.00) Instructed on diet and exercise with continued statin therapy.Discussed the beneficial effects of lowering cholesterol in reducing the risk for cerebrovascular and cardiovascular disease. Jun, Autoimmune thyroidit is (ICD-10 - E06.3) Clinically euthyroid, yearly TSH Jun, Other specified hypothyroidism (ICD-10 - E03.8) Jun, Screening mammogram for breast cancer (ICD-10 - Z12.31) Instructed patient on monthly SBE and yearly mammograms. 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) Cool compresses, Benadryl at [employer] Other 04-21-2023 Evaluation note* Encounter Date Diagnosis Assessment Notes Treatment Notes Treatment Clinical Notes Dec, Primary osteoarthritis of first carpometacarpal joint of right hand (ICD-10 - M18.11) Non surgical options discussed to include - topical and oral NSAIDs - use of heat and ice - bracing - hand therapy - use of lidocaine patches - use of turmeric/curcumin and Glucosamine/Chondro itin - oral and injectable steroids Surgical options discussed to include - trapeziectomy LRTI with carpal tunnel release Patient would like to think about options and she will contact the office if she wishes to proceed Dec, Right carpal tunnel syndrome (ICD-10 - G56.01) Dec, Right hand pain (ICD-10 - M79.641) [employer] Other 02-13-2023 Evaluation note* Encounter Date Diagnosis Assessment Notes Treatment Notes Treatment Clinical Notes Oct, Obesity (ICD-10 - E66.9) [employer] Other 01-20-2023 Evaluation note* Encounter Date Diagnosis Assessment Notes Treatment Notes Treatment Clinical Notes Sep, Essential hypertension (ICD-10 - I10) [employer] Other 01-09-2023 Evaluation note* Encounter Date Diagnosis Assessment Notes Treatment Notes Treatment Clinical Notes Sep, Acute bronchitis due to other specified organisms (ICD-10 - J20.8) Instructed to use Robitussin or Mucinex for cough, saline or Flonase NS for congestion, Tylenol for pain and fever. Sep, Essential hypertension (ICD-10 - I10) This patient is instructed to consume a healthy, low-fat, low-salt diet. They are also encouraged to continue exercise to achieve/maintain a normal BMI. Sep, Obesity (BMI 30.0-34.9) (ICD-10 - E66.9) This patient has been instructed on a low-fat, high-fiber diet. They are instructed to reduce calories, portion sizes and snacks. It is recommended that they exercise for 30 minutes, 3-5 times weekly. Initiate GLP-1 - reviewed mode of action, side effects w/ patient [employer] Other 10-19-2021 Evaluation note* Encounter Date Diagnosis Assessment Notes Treatment Notes Treatment Clinical Notes Jun, Arthritis of carpometacarpal (CMC) joint of left thumb (ICD-10 - M18.12) Patient instructed on gentle motion and strength exercise. Patient is progressing well from surgery. We discussed the importance of continuing motion and strength exercise. Jun, Primary osteoarthritis of first carpometacarpal joint of right hand (ICD-10 - M18.11) All treatment options as well as risks of the proposed procedure were thoroughly discussed with the patient including bleeding, nerve and vessel injury, infection, persistent pain, stiffness, failure of procedure, mechanical failure, need for further surgery, DVT, as well as risks of anesthesia. Patient has admitted full understanding of these risks and would like to proceed. We will obtain updated right hand xrays at next appointment for surgical treatment Jun, Right carpal tunnel syndrome (ICD-10 - G56.01) Jun, Carpal tunnel syndrome, left (ICD-10 - G56.02) Jun, Pain of right thumb (ICD-10 - M79.644) Jun, Left wrist pain (ICD-10 - M25.532) Jun, Right wrist pain (ICD-10 - M25.531) Jun, Other specified postprocedural states (ICD-10 - Z98.890) [employer] Other Evaluation noteNo assessment information available [facility] Work Phone: Evaluation noteNo InformationNort [employer] Other History general Narrative - Reported* Type Description Date Medical History HBP Medical History Hypothyroidism Medical History hypertension Surgical History tubal ligation Surgical History right shoulder repair Hospitalization History as above [employer] Other History general Narrative - Reported* Type Description Date Medical History Hyperlipidemia type II Medical History Depression screening Medical History Obesity Medical History ANGELICA (generalized anxiety disorde r) Medical History Primary insomnia Medical History Gastroesophageal ref lux disease with esophagitis without hemorrhage Medical History Autoimmune thyroiditis Medical History Essential hypertension Medical History Bronchitis Medical History Vasovagal syncope Medical History COVID-19 Medical History Primary osteoarthritis of knees, bilateral Medical History Age-related osteopor osis without current pathological fracture Medical History Interstitial granulomatous derma titis Surgical History tubal ligation Surgical History right shoulder repair Surgical History ARTHROPLASTY, INTERP OSITION, INTERCARPAL/CARPOMETACARPAL JOINTS, left thumb 02/2021 Surgical History CARPAL TUNNEL RELEASE 02/2021 Surgical History REMOVAL OF WRIST BONE, EXCISION OF TRAPEZIUM 02/2021 Surgical History COLONOSCOPY Hospitalization History as above [employer] Other History general Narrative - Reported* Type Description Date Medical History Hyperlipidemia type II Medical History Depression screening Medical History Obesity Medical History ANGELICA (generalized anxiety disorde r) Medical History Primary insomnia Medical History Gastroesophageal ref lux disease with esophagitis without hemorrhage Medical History Autoimmune thyroiditis Medical History Essential hypertension Medical History Bronchitis Medical History Vasovagal syncope Medical History COVID-19 Medical History Primary osteoarthritis of knees, bilateral Medical History Age-related osteopor osis without current pathological fracture Medical History Interstitial granulomatous derma titis Surgical History tubal ligation Surgical History right shoulder repair Surgical History CARPAL TUNNEL RELEASE 02/2021 Surgical History Left Trapeziectomy/LRTI 02/2021 Surgical History COLONOSCOPY Hospitalization History as above [employer] Other History general Narrative - Reported* Type Description Date Medical History Hyperlipidemia type II Medical History Depression screening Medical History Obesity Medical History ANGEILCA (generalized anxiety disorde r) Medical History Primary insomnia Medical History Gastroesophageal ref lux disease with esophagitis without hemorrhage Medical History Autoimmune thyroiditis Medical History Essential hypertension Medical History Bronchitis Medical History Vasovagal syncope Medical History COVID-19 Medical History Primary osteoarthritis of knees, bilateral Medical History Age-related osteopor osis without current pathological fracture Medical History Interstitial granulomatous derma titis Surgical History tubal ligation Surgical History right shoulder repair Surgical History CARPAL TUNNEL RELEASE 02/2021 Surgical History Left Trapeziectomy/LRTI 02/2021 Surgical History COLONOSCOPY 2018 Hospitalization History as above [employer] Other Summary Purpose Family History Relationship Condition Age at Onset Recorded Date/T jesse Not Specified Malignant neoplasm of lung Unknown father Cerebrovascular accident (CVA) Unknown Hypertension Unknown Congestive heart failure Unknown Alcohol abuse Unknown Advance Directives Advance Directive Response Recorded Date/ Time Advance Directives No February 11 8 5:40pm Chief Complaint and Reason for Visit Chief Complaint Z12.31 Additional Source Comments INFORMATION SOURCE (unrecogn ized section and content) DATE CREATED AUTHOR 09/10/2021 [facility] DATE CREATED AUTHOR AUTHOR'S ORGANIZ ATION 05/27/2023 [facility] DATE CREATED AUTHOR AUTHOR'S ORGANIZ ATION 08/18/2023 [facility] EPIC DATE CREATED AUTHOR AUTHOR'S ORGANIZ ATION [facility]20[facility] REASON FOR VISIT (unrecogniz ed section and content) Recheck Left Wristcoughing, headache, sinus congestion,No InformationNo InformationMedication ChangerefillRight Hand PainRashrefill?Mammogram resultsrefillwellnessSinuses, Cough, Congestion-Testing for COVID- [phone] InformationLab results Care Teams (unrecognized sec tion and content) Team Status: Inactive Member Role Status Dates Sonido Chaudhari , DO Primary Care Provider Active Teo Rivera MD Attending Provider Active Team Status: Active Member Role Status Dates Sonido Chaudhari , Primary Care Provider Active Team Status: Inactive Member Role Status Dates Sonido Chaudhari , Primary Care Provider Active Irma Mc MD Attending Provider Active Goals (unrecognized section and content) Goals may be documented in a n alternate section FOR RECORDS PERTAINING TO PATIENTS WHO ARE OR HAVE BEEN ENROLLED IN A CHEMICAL DEPENDENCY/SUBSTANCEABUSE PROGRAM, SOME INFORMATION MAY BE OMITTED. This clinical summary was aggregated from multiple sources. Caution should be exercised in using it in the provision of clinical care. This summary normalizes information from multiple sources, and as a consequence, information in this document may materially change the coding, format and clinical context of patient data. In addition, data may be omitted in some cases. CLINICAL DECISIONS SHOULD BE BASED ON THE PRIMARY CLINICAL RECORDS. [email or web address] provides no warranty or guarantee of the accuracy or completeness of information in this document.
== END 2023-10-28 09:05 | disposition home or self-care (01) ==
LOC: RAD 09:04
PROVIDERS: PCP Internal Medicine; Visit Provider Physician Assistant
DX: M79.672 Pain in left foot (principal)
CPT/HCPCS: 73630

== ENCOUNTER 2024-04-10 14:29 | Outpatient (OUT) | payer OTHER, SELFPAY ==
--- OUTSIDE RECORDS SUMMARY | 2024-04-10 14:36 | XMS_ITS | CCD ---
Author Organization [facility] Care Team Providers Care Warehouse Shipping Receiving Clerk Name Role Phone WATSON, DR HEAD Consulting Unavailable BALL, DR HEAD Attending Unavailable BALL, DR HEAD Admitting Unavailable BALL, DR HEAD Primary Care Unavailable REQUEST, DR JOSHI LISTED Admitting Unavaila ble REQUEST, DR JOSHI LISTED Consulting Unavaila ble REQUEST, DR JOSHI LISTED Attending Unavaila ble WATSON, DR HEAD Primary Care Unavailable Irma Mc Unavailable DO Sonido Chaudhari Primary Care Provider MD Teo Rivera Attending Provider [phone] Sonido Chaudhari Unavailable DO Sonido Chaudhari Primary Care Provider MD Irma Mc Attending Provider DO Sonido Chaudhari Primary Care Provider MD Teo Rivera Attending Provider TEO RIVERA Attending Unavailable Sonido Chaudhari Primary Care Unavailable DO Sonido Chaudhari Primary Care Provider MD Irma Mc Attending Provider Irma Mc Admitting Unavailable Irma Mc Attending Unavailable Sonido Chaudhari Primary Care Unavailable Teo Rivera Admitting Unavailable Teo Rivera Attending Unavailable Sonido Chaudhari Primary Care Unavailable Irma Mc Admitting Unavailable Irma Mc Attending Unavailable Sonido Chaudhari Primary Care Unavailable Allergies Allergy Classification Reported Allergen(s) Allergy Type Date of Onset Reaction(s) Facility (2 sources) patient allergy list reviewed by nurse or physicia Propensity to adverse reactions 6 Comment:Done [facility] Other (2 sources) Allergies Reconciled Propensity to adverse reactions Unknown [facility] Other (1 source) No Known Medication Allergies; Translations: [No Known Medication Allergies] Propensity to adverse reactions to drug (disorder) [facility] Repository Medications Current Medications Medication Drug [...] Subcutaneous weekly for 28 days Sep, Active atorvastatin 20 mg oral tablet (17 sources) HMG-CoA Reductase Inhibitor Start: 12-08-2023 take 1 tablet by mouth once daily Atorvastatin Active 1 TAB PO Daily December 08, 2023 12:00am [employer]: Take 1 tablet by mouth once daily; Note: Source Status: Taking; Refills: 11; Qty: 30 Tablet; Provider: Watson Head ( ) take 1 tablet by mouth once estephania y Atorvastatin Calcium 20 MG Take 1 tablet by mouth once daily for 30 Active azithromycin 250 mg oral tablet (3 sources) Macrolide Antimicrobial Start: 09-10-2023 Azithromycin 250 MG as directed Orally daily for 5 days Aug, Active cholecalciferol 0.025 mg oral tablet (5 sources) Vitamin D Start: 08-24-2018 take 1 tablet by mouth once daily Cholecalciferol (Vitamin D3) (Vitamin D3) 1,000 unit Tablet Active 1000 UNIT PO Daily August 24, 2018 1:00am Diclofenac (1 source) Nonsteroidal Anti-inflammatory Drug Start: 12-08-2023 Diclofenac Sodium (Voltaren Arthritis Pain) 1 % gel Active 0 TOPICAL .COMPLEX 100 December 08, 2023 12:00am apply 1-2 grams to affected area topically twice a day doxycycline hyclate 100 mg oral capsule (13 sources) Tetracycline-class Drug Start: 09-28-2022 take 1 capsule by mouth twice daily Doxycycline Hyclate 100 MG 1 capsule Orally twice daily for 7 days Sep, Active Start: 03-06-2021 End: 12-08-2023 take 100 mg by mouth twice daily Doxycycline Hyclate Discontinued 100 MG PO Twice daily 10 March 06, 2021 12:00am December 08, 2023 10:29am escitalopram 10 mg oral tablet (12 sources) Serotonin Reuptake Inhibitor take 1 tablet by mouth every twenty-four hours Escitalopram Oxalate 10 MG 1 tablet Orally Once a day Active Glucos Sul 7aqg-Nle-Zykuo-C-Mn (Glucosamine Chondroitin) 550-30-1 mg Capsule (5 sources) Start: 02-26-20 take 1 capsule by mouth once daily Glucos Sul 1rmt-Uxu-Xvcxx-C-Mn (Glucosamine Chondroitin) 550-30-1 mg Capsule Active 1 CAP PO Daily February 25, 2021 12:00am levothyroxine sodium 0.137 mg oral tablet (20 sources) l-Thyroxine Start: 08-24-20 take 137 ug by mouth once daily Levothyroxine Active 137 MCG PO Daily August 24, 2018 1:00am take 1 tablet by mouth once estephania y Levothyroxine Sodium 137 MCG Take 1 tablet by mouth once daily Active lisinopril 5 mg oral tablet (20 sources) Angiotensin Converting Enzyme Inhibitor Start: 02-25-2021 take 5 mg by mouth once daily Lisinopril Active 5 MG PO Daily February 25, 2021 12:00am Multivitamin preparation (5 sources) Start: 08-24-2018 take 1 tablet by [...] January, Active take 1 tablet by christopher every twenty-four hours Zolpidem Tartrate 5 MG 1 tablet at bedtime as needed Orally Once a day Active {20 (nirmatrelvir 150 MG Ora l Tablet) / 10 (ritonavir 100 MG Oral Tablet) } Pack [Paxlovid 5-Day] (7 sources) take 3 tablets by mo [facility] every twelve hours Paxlovid (300/100) 20 x 150 MG & 10 x 100MG 3 tablets Orally Twice a day for 5 days Active Completed/Discontinued Medications Medication Drug Class(es) Dates Sig (Normalized) Sig (Original) acetaminophen 325 mg / HYDROcodone bitartrate 5 mg oral tablet (5 sources) Opioid Agonist Start: 03-06-2021 End: 12-08-2023 take 1 tablet by mouth every four to six hours Hydrocodone-Aceta minophen Discontinued 1 - 2 TAB PO EVERY 4-6 HOURS 50 7 March 06, 2021 December 08, 2023 10:29am alendronic acid 70 mg oral tablet (5 sources) Bisphosphonate Start: 08-24-2018 End: 02-25-2021 take [...] Feb, Not-Taking/PRN thiamine 250 mg oral tablet (5 sources) Start: 08-24-2018 End: 02-25-2021 take 1 [...] right thumb] Episodic Other connective tissue disease (3 sources) Pain in right hand; Translations: [Pain in limb] Episodic Other connective tissue disease (2 sources) Hand pain; Translations: [Pain in right hand] 12-08-2023 Episodic Other nervous system disorders (16 sources) Carpal tunnel syndrome of left wrist; Translations: [Carpal tunnel syndrome, left upper limb] Chronic Other nervous system disorders (18 sources) Carpal tunnel syndrome of right wrist; Translations: [Carpal tunnel syndrome, right upper limb] 12-08-2023 Chronic Other nervous system disorders (4 sources) Carpal tunnel syndrome, right upper limb; Translations: [Carpal tunnel syndrome] Onset: 07-08-2021 Resolved: 07-08-2021 Chronic Other nervous system disorders (1 source) Carpal tunnel syndrome, left upper limb; Translations: [Carpal tunnel syndrome, left G56.02] Onset: 07-08-2021 Resolved: 07-08-2021 Chronic Other nervous system disorders (5 sources) Carpal tunnel syndrome; Translations: [Carpal tunnel syndrome, unspecified upper limb] 03-06-2021 Chronic Other nervous system disorders (2 sources) Meralgia paresthetica; Translations: [Meralgia paresthetica] Onset: 03-12-2017 Chronic Other nervous system disorders (5 sources) Pain in limb; Translations: [Other acute [...] conditions (not mental disorders or infectious disease) (8 sources) Patient encounter status; Translations: [Encounter for [...] Test Name Value Interpretation Reference Range Facility XR hand RT min 3V*on 024 XR hand RT min 3V* [facility] [place] [address] XRay Report Signed Patient: Naida Mane MR#: [id number] 19 : 1960 Acct:[id number] Age/Sex: 63 / F ADM Date: 12/08/23 Loc: [facility] Room: Type: [facility] Attending Dr: Irma Mc MD Copies to: Irma Mc MD Ordering Provider: Irma Mc MD Date of Service: 12/08/23 XR/XR hand RT min 3V*: M18.10 - Unilateral primary osteoarthritis of first carpo... 4 views RIGHT hand hand plain film COMPARISON: 01/08/23 HISTORY: RIGHT 1st carpal metacarpal pain. ACUTE FINDINGS: None DEGENERATIVE CHANGE: Continued extensive STT arthritis and 1st carpometacarpal degenerative change. SOFT TISSUE FINDINGS: Unremarkable JOINT EFFUSION: None POSTOP CHANGES: None BONY MINERALIZATION: Adequate XR/XR hand RT min 3V* IMPRESSION: Redemonstration of extensive STT arthritis and 1st carpometacarpal degenerative change. Impression dictated by: Bal Harley M.D.12/08/2023 3:18 PM Dictation Location: [place] [address] Transcribed By: [facility] 12/08/231517 Dictated By: Bal Harley DO 12/08/231516 Signed By: 12/08/23 151 [facility] Consent Formson 08-24-2023 Consent Forms [id number] 1.00OTGTIFF [facility] CMP Standardon 07-15-2023 eGFR Non AA >60 Invalid Interpretation Code [facility] Comment on above: Performed By: #### 2 571249, 0663293, 8591951, 5394767, [id number], [id number], 1739696 #### [facility] (DEFAULT) [address] [place] [address] 32850 eGFR AA >60 Invalid Interpretation Code [facility] Comment on above: Performed By: #### 2 379610, 7404876, 4055139, 9638485, [id number], 7440466066, 6873155 #### [facility] (DEFAULT) [address] [place] [address] 16520 Albumin [Mass/Vol] 4.0 g/dL Normal 3.5-5.0 [facility] Comment on above: Performed By: #### 2 428292, 0355492, 4625180, 2032619, 5554007629, 7147929852, 4084268 #### [facility] (DEFAULT) [address] [place] [address] 32523 Albumin/Globulin [Mass ratio] 1.1 {ratio} Low 1.4-2.6 [facility] Comment on above: Performed By: #### 2 969833, 1060784, 9871116, 5081188, 3225778435, 0930337818, 4188339 #### [facility] (DEFAULT) [address] [place] [address] 44372 Alk Phos 85 IU/L Normal 32-91 [facility] Comment on above: Performed By: #### 2 713530, 3583508, 4474934, 7397078, 9497602442, 7257504134, 0581238 #### [facility] (DEFAULT) [address] [place] [address] 29304 ALT [Catalytic activity/Vol] 45.0 U/L Normal 14.0-54.0 [facility] Comment on above: Performed By: #### 2 649105, 5396148, 1435383, 6271369, 9287743308, 5918332340, 3541865 #### [facility] (DEFAULT) [address] [place] [address] 27407 Anion gap [Moles/Vol] 10.9 mmol/L Normal 5.0-19.0 [facility] Comment on above: Performed By: #### 2 660061, 8075595, 0763365, 1630288, 3023749227, 2229858832, 4788619 #### [facility] (DEFAULT) [address] [place] [address] 21963 AST [Catalytic activity/Vol] 31 U/L Normal 15-41 [facility] Comment on above: Performed By: #### 2 730221, 7179965, 2875721, 5075938, 0006504024, 3393812074, 3245889 #### [facility] (DEFAULT) [address] [place] [address] 58588 Bili Total 0.5 mg/dL Normal 0.3-1.2 [facility] Comment on above: Performed By: #### 2 505812, 9035997, 0583005, 5652575, 8453427713, 5320658334, 2243480 #### [facility] (DEFAULT) [address] [place] [address] 45186 Calcium [Mass/Vol] 9.4 mg/dL Normal 8.9-10.3 [facility] Comment on above: Performed By: #### 2 332197, 6262138, 9211071, 1727462, 0884920438, 2209035075, 7867443 #### [facility] (DEFAULT) [address] [place] [address] 58878 Chloride [Moles/Vol] 104 mmol/L Normal 101-111 [facility] Comment on above: Performed By: #### 2 947512, 5121600, 0784347, 8714932, 0934573595, 0242798233, 9570593 #### [facility] (DEFAULT) [address] [place] [address] 44310 CO2 [Moles/Vol] 26 mmol/L Normal 21-32 [facility] Comment on above: Performed By: #### 2 401125, 0829521, 7728516, 1252706, 1521987211, 7381893580, 6777917 #### [facility] (DEFAULT) [address] [place] [address] 59657 Creatinine [Mass/Vol] 0.77 mg/dL Normal 0.60-1.30 [facility] Comment on above: Performed By: #### 2 424846, 0983400, 5416074, 6473941, 0448911092, 2335671549, 0975002 #### [facility] (DEFAULT) [address] [place] [address] 49698 Globulin (S) [Mass/Vol] 3.4 g/dL Normal 1.5-4.3 [facility] Comment on above: Performed By: #### 2 630977, 7194871, 0660859, 7142045, 0182227640, 1125676123, 8231428 #### [facility] (DEFAULT) [address] [place] [address] 85660 Glucose [Mass/Vol] 100.0 mg/dL Normal 74.0-118.0 [facility] Comment on above: Performed By: #### 2 971293, 2995843, 8554462, 1933231, 4326310971, 6443914374, 6748765 #### [facility] (DEFAULT) [address] [place] [address] 32238 Osmolality 277 mOsm/L Invalid Interpretation Code [facility] Comment on above: Performed By: #### 2 259011, 2876484, 3717149, 6254431, 4046828137, 6087924464, 9969599 #### [facility] (DEFAULT) [address] [place] [address] 28002 Potassium [Moles/Vol] 3.9 mmol/L Normal 3.6-5.1 [facility] Comment on above: Performed By: #### 2 940637, 6908248, 4151742, 7626706, 5483485910, 9951753990, 8695750 #### [facility] (DEFAULT) [address] [place] [address] 62860 Protein [Mass/Vol] 7.4 g/dL Normal 6.5-8.1 [facility] Comment on above: Performed By: #### 2 413985, 4575913, 2098206, 6437785, 1324566280, 3161054078, 8941731 #### [facility] (DEFAULT) [address] [place] [address] 67951 Sodium [Moles/Vol] 137.0 mmol/L Normal 136.0-144.0 [facility] Comment on above: Performed By: #### 2 835721, 7942477, 4234108, 1938791, 4332690271, 7716346360, 7712293 #### [facility] (DEFAULT) [address] [place] [address] 65002 Urea nitrogen [Mass/Vol] 21 mg/dL Normal 8-26 [facility] Comment on above: Performed By: #### 2 442148, 3808712, 5683572, 2926958, 7086748664, 4359231923, 8934673 #### [facility] (DEFAULT) [address] [place] [address] 63829 Urea nitrogen/Creatini ne [Mass ratio] 27.2 mg/mg High 4.6-16.2 [facility] Comment on above: Performed By: #### 2 929226, 3019607, 2289159, 1023252, 7878889036, 6376898448, 8738607 #### [facility] (DEFAULT) [address] [place] [address] 44355 GGTon 07-15-2023 Gamma glutamyl transferase [Catalytic activity/Vol] 61.0 U/L High 7.0-50.0 [facility] Comment on above: Performed By: #### 2 771452, 6718297, 3737586, 1417897, 8099616344, 9737263241, 8266827 #### [facility] (DEFAULT) [address] [place] [address] 02337 Iron Levelon 07-15-2023 Iron [Mass/Vol] 77.0 ug/dL Normal 28.0-170.0 [facility] Comment on above: Performed By: #### 2 668161, 1423615, 0174488, 9962435, 9538831053, 4964605528, 4008092 #### [facility] (DEFAULT) [address] [place] [address] 92210 LDHon 07-15-2023 LDH 161.0 IU/L Normal 98.0-192.0 [facility] Comment on above: Performed By: #### 2 499790, 9704051, 5962551, 9894353, 9069072252, 7917023669, 0014239 #### [facility] (DEFAULT) [address] [place] [address] 11174 Lipid Panel Standardon 07-15 Cholesterol [Mass/Vol] 226.0 mg/dL High 66.0-200.0 [facility] Comment on above: Performed By: #### 2 431077, 0794299, 2077834, 2221870, 1642232064, 9131867168, 5740295 #### [facility] (DEFAULT) [address] [place] [address] 54463 Cholesterol in HDL [Mass/Vol] 44 mg/dL Normal 40-71 [facility] Comment on above: Performed By: #### 2 455762, 9851311, 6254938, 7238452, 4230222473, 9329657758, 5785478 #### [facility] (DEFAULT) [address] [place] [address] 85505 Cholesterol in LDL [Mass/Vol] 121 mg/dL High 1-100 [facility] Comment on above: Performed By: #### 2 340439, 0017724, 4139830, 3921690, 9769732168, 0471086481, 0164906 #### [facility] (DEFAULT) [address] [place] [address] Cholesterol.total /Cholesterol in HDL [Mass ratio] 5.1 {ratio} High 0.0-4.5 [facility] Comment on above: Performed By: #### 2 908577, 5875922, 2029871, 2245641, 4385029212, 3851936510, 9486653 #### [facility] (DEFAULT) [address] [place] [address] 66540 Triglyceride [Mass/Vol] 303.0 mg/dL High 0.0-150.0 [facility] Comment on above: Performed By: #### 2 310100, 4080430, 5588425, 9408035, 0427653737, 3002737854, 2712794 #### [facility] (DEFAULT) [address] [place] [address] 57870 VLDL. 61 mg/dL High 5-40 [facility] Comment on above: Performed By: #### 2 362107, 8990239, 4616233, 0753063, 9212777317, 2644095077, 9312479 #### [facility] (DEFAULT) [address] [place] [address] 23409 Phoson 07-15-2023 Phosphate [Mass/Vol] 3.7 mg/dL Normal 2.5-4.6 [facility] Comment on above: Performed By: #### 2 433854, 2778551, 2052143, 1435189, 1604739055, 7982956960, 7169041 #### [facility] (DEFAULT) [address] [place] [address] 49514 Uric Acidon 07-15-2023 Urate [Mass/Vol] 4.0 mg/dL Normal 2.6-8.0 [facility] Comment on above: Performed By: #### 2 246909, 7107893, 4036367, 3482374, 4840209407, 3183666154, 6089151 #### [facility] (DEFAULT) [address] [place] [address] MM screening mammo BI w/CADo n 05-26-2023 MM screening mammo BI w/CAD [facility] [place] [address] [place], [place] [address] Mammography Report Signed Patient: Naida Mane MR#: [id number] 19 : 1960 Acct:[id number] Age/Sex: 62 / F ADM Date: 05/26/23 Loc: [place] Room: Type: [facility] Attending Dr: Teo Rivera MD [...] Paula Wiggins M.D.05/26/2023 3:54 PM Dictation Location: [facility] Transcribed By: JANICE 05/26/23 1554 Dictated By: Paula Wiggins MD 05/26/23 155 Signed By: 05/26/23 1554 [facility] XR hand RT min 3V*on 023 XR hand RT min 3V* [facility] [place] [address] XRay Report Signed Patient: Naida Mane MR#: [id number] 19 : 1960 Acct:[id number] Age/Sex: 62 / F ADM Date: 01/08/23 Loc: [facility] Room: Type: [facility] Attending Dr: Irma Mc MD [...] Paula Wiggins M.D.01/08/2023 12:39 PM Dictation Location: [place] [address] Transcribed By: JANICE 01/08/23 1239 Dictated By: Paula Wiggins MD 01/08/23 1235 Signed By: 01/08/23 1239 [facility] CPKon 09-04-2021 CK [Catalytic activity/Vol] 54 U/L Normal 30-135 [facility] Comment on above: Performed By: #### C K #### [facility] [address] [place] [address] Dr. Nancy López 09-04-2021 Creatinine [Mass/Vol] 0.91 mg/dL Normal 0.52-1.04 [facility] Comment on above: Performed By: #### SPENCER ACOSTAL, ALT #### [facility] [address] [place] [address] [address] Nancy Kincaid EGFR-AF FRENCH >60 Normal >=60 [facility] Comment on above: Performed By: #### SPENCER ACOSTAL, ALT #### [facility] [address] [place] [address] [address] Nancy Kincaid EGFR-NON AF FRENCH >60 Normal >=60 [facility] Comment on above: Performed By: #### SPENCER ACOSTAL, ALT #### [facility] [address] [place] [address] Dr. Nancy Kincaid DIRECT LDLon 09-04-2021 Cholesterol in LDL [Mass/Vol] 86 mg/dL Normal [facility] Comment on above: Performed By: #### SPENCER ACOSTAL, ALT #### [facility] [address] [place] [address] [address] Nancy Kincaid DLDL NORMAL SEE BELOW Normal [facility] Comment on above: Result Comment: <100 mg/dl OPTIMAL 100 - 129 mg/dl NEAR OR ABOVE OPTIMAL 130 - 159 mg/dl BORDERLINE HIGH 160 - 189 mg/dl HIGH >190 mg/dl VERY HIGH Performed By: #### SPENCER ACOSTAL, ALT #### [facility] [address] [place] [address] Dr. Nancy Kincaid SGPTon 09-04-2021 ALT [Catalytic activity/Vol] 40 U/L Normal 9- [facility] Comment on above: Performed By: #### SPENCER ACOSTAL, ALT #### [facility] [address] [place] [address] Dr. Nancy Kincaid XR hand LT min 3V*on 021 XR hand LT min 3V* [facility] [employer] Other XR hand LT min 3V* [facility] [employer] Other XR hand LT min 3V* [address] [employer] Other XR hand LT min 3V* KRISTINA Tyson [address] [employer] Other XR hand LT min 3V* XRay Report [employer] Other XR hand LT min 3V* Signed [employer] Other XR hand LT min 3V* Patient: Naida Mane MR#: [id number] [employer] Other XR hand LT min 3V* 19 [employer] Other XR hand LT min 3V* : 1960 Acct:[id number] [employer] Other XR hand LT min 3V* Age/Sex: 61 / F ADM Date: 07/08/21 [employer] Other XR hand LT min 3V* Loc: [facility] Room: Type: [facility] [employer] Other XR hand LT min 3V* Attending Dr: Irma Mc MD [employer] Other XR hand LT min 3V* Ordering Provider: Irma Mc MD [employer] Other XR hand LT min 3V* Date of Service: 07/08/21 [employer] Other XR hand LT min 3V* XR/XR hand LT min 3V*: Arthritis of carpometacarpal (CMC) joint of left [employer] Other XR hand LT min 3V* thumb [employer] Other XR hand LT min 3V* Copies to: Irma Mc MD [employer] Other XR hand LT min 3V* 4 viewsLEFT hand plain film [employer] Other XR hand LT min 3V* COMPARISON:04/09/21 [employer] Other XR hand LT min 3V* HISTORY:Status post LEFT trapezium ectomy. [employer] Other XR hand LT min 3V* There is resection of the trapezium. There is no new findings. [employer] Other XR hand LT min 3V* XR/XR hand LT min 3V* [employer] Other XR hand LT min 3V* IMPRESSION:Stable postoperative changes. [employer] Other XR hand LT min 3V* Impression dictated by: Bal Harley M.D.07/08/2021 10:31 AM [employer] Other XR hand LT min 3V* Dictation Location: [place] [address] [employer] Other XR hand LT min 3V* Transcribed By: [facility] 07/08/21 [facility] [employer] Other XR hand LT min 3V* Dictated By: Bal Harley DO 07/08/21 [facility] [employer] Other XR hand LT min 3V* Signed By: [employer] Other XR hand LT min 3V* 07/08/21 [facility] [employer] Other Vital Signs Date Time Vital Sign Value Performing Clinician Facility 07-19-2023 13:30-0400 Body height 167.64 cm [email or web address] Other [employer] Other 07-19-2023 13:30-0400 Body mass index (BMI) [Ratio] 32.36 kg/m2 [email or web address] Other [facility] Other 07-19-2023 13:30-0400 Body weight 90.95 kg [email or web address] Other [facility] Other 07-19-2023 13:30-0400 Diastolic blood pressure 73 mm[Hg] Sonido Ball Other [facility] Other 07-19-2023 13:30-0400 Respiratory rate 12 /min Sonido Ball Other [facility] Other 07-19-2023 13:30-0400 Systolic blood pressure 112 mm[Hg] Sonido Ball Other [facility] Other 01-11-2023 14:30-0400 Body height 167.64 cm Sonido Ball Other [facility] Other 01-11-2023 14:30-0400 Body mass index (BMI) [Ratio] 33.76 kg/m2 Sonido Ball Other [facility] Other 01-11-2023 14:30-0400 Body weight 94.89 kg Sonido Ball Other [facility] Other 01-11-2023 14:30-0400 Diastolic blood pressure 78 mm[Hg] Sonido Ball Other [facility] Other 01-11-2023 14:30-0400 Respiratory rate 16 /min Sonido Ball Other [facility] Other 01-11-2023 14:30-0400 Systolic blood pressure 126 mm[Hg] Sonido Ball Other [facility] Other 09-28-2022 13:15-0500 Body height 167.64 cm Sonido Ball Other [facility] Other 09-28-2022 13:15-0500 Body mass index (BMI) [Ratio] 33.57 kg/m2 Sonido Ball Other [facility] Other 09-28-2022 13:15-0500 Body weight 94.35 kg Sonido Chaudhari Other [facility] Other 07-08-2021 09:30-0400 Body height 167.64 cm Irma Mc Other [facility] Other Encounters Encounter Date Encounter Type Care Provider Facility Start: 12-08-2023 End: 12-08-2023 ambulatory Irma Oneiljefferson Facility:[facility] Start: 12-08-2023 End: 12-08-2023 ambulatory DO Sonido Ball Work Phone: [facility] Work Phone: Start: 12-08-2023 End: 12-08-2023 Patient encounter procedure DO Sonido Ball Work Phone: [facility] Work Phone: Start: 10-11-2023 End: 10-11-2023 ambulatory Sonido Ball Other [facility] Other Start: 10-11-2023 Telephone encounter Sonido Ball [facility] Start: 10-09-2023 End: 10-09-2023 ambulatory Sonido Ball Other [facility] Other Start: 10-09-2023 Telephone encounter Sonido Ball [facility] Start: 10-09-2023 Patient encounter procedure DO Sonido Ball Work Phone: [facility] [facility]- Start: 09-10-2023 End: 09-10-2023 ambulatory Sonido Ball Other [facility] Other Start: 09-10-2023 Office outpatient vi sit 15 minutes Sonido Ball [facility] Start: 08-17-2023 End: 08-17-2023 ambulatory TEO RIVERA Not Available Start: 07-20-2023 End: 07-21-2023 ambulatory Sonido Ball Facility:[facility] Start: 07-19-2023 End: 07-19-2023 ambulatory Sonido Chaudhari Other [facility] Other Start: 07-19-2023 Encounter for genera l adult medical examination without abnormal findings Sonido Chaudhari [facility] Start: 07-19-2023 Periodic preventive med est patient 40-64yrs Sonido Chaudhari [facility] Start: 06-28-2023 End: 06-28-2023 ambulatory Sonido Chaudhari Other [facility] Other Start: 06-28-2023 Telephone encounter Sonido Chaudhari [facility] Start: 05-28-2023 End: 05-28-2023 ambulatory Sonido Chaudhari Other [facility] Other Start: 05-28-2023 Telephone encounter Sonido Chaudhari [facility] Start: 05-26-2023 End: 05-26-2023 ambulatory Teo Michelley Facility:[facility] Start: 05-26-2023 End: 05-26-2023 ambulatory DO Sonido Chaudhari Work Phone: [facility] Work Phone: Start: 05-26-2023 End: 05-26-2023 Patient encounter procedure DO Sonido Ball Work Phone: [facility] Work Phone: Start: 03-01-2023 End: 03-01-2023 ambulatory Sonido Chaudhari Other [facility] Other Start: 03-01-2023 Telephone encounter Sonido Chaudhari [facility] Start: 01-25-2023 End: 01-25-2023 ambulatory Sonido Chaudhari Other [facility] Other Start: 01-25-2023 Telephone encounter Sonido Chaudhari [facility] Start: 01-11-2023 End: 01-11-2023 ambulatory Sonido Chaudhari Other [facility] Other Start: 01-11-2023 Office outpatient vi sit 15 minutes Sonido Chaudhari [facility] Start: 01-08-2023 Office outpatient vi sit 15 minutes Irma Mc [facility] Start: 01-08-2023 End: 01-08-2023 ambulatory Irma Mc Facility:[facility] Start: 01-08-2023 End: 01-08-2023 ambulatory DO Sonido Chaudhari Work Phone: [facility] Work Phone: Start: 01-08-2023 End: 01-08-2023 Patient encounter procedure DO Sonido Chaudhari Work Phone: [facility] Start: 12-28-2022 End: 12-28-2022 ambulatory Sonido Chaudhari Other [facility] Other Start: 12-28-2022 Telephone encounter Sonido Chaudhari [facility] Start: 11-02-2022 End: 11-02-2022 ambulatory Sonido Chaudhari Other [facility] Other Start: 11-02-2022 Telephone encounter Sonido Chaudhrai [facility] Start: 10-09-2022 End: 10-09-2022 ambulatory Sonido Chaudhari Other [facility] Other Start: 10-09-2022 Telephone encounter Sonido Chaudhari [facility] Start: 09-28-2022 ([facility]) [facility] Sched[facility] Sonido Chaudhari [facility] Start: 09-28-2022 End: 09-28-2022 ambulatory Sonido Chaudhari Other [facility] Other Start: 07-10-2022 Adult health examination Sonido Chaudhari Other [facility] Other Start: 05-15-2022 End: 05-15-2022 Patient encounter procedure DO Sonido Chaudhari Work Phone: [facility] Start: 09-04-2021 End: 09-05-[address] SONIDO CHAUDHARI Facility:[facility] Start: 07-08-2021 Office outpatient vi sit 15 minutes [facility] Start: 11-29-2020 End: 11-30-[address] JOSHI LISTED REQUEST Facility:[facility] Procedures Date Procedure Procedure Detail Performing Clinician Start: 12-08-2023 Plain X-ray of right hand DO Sonido Chaudhari Work Phone: Start: 05-26-2023 Screening mammograph y of bilateral breasts DO Sonido Chaudhari Work Phone: Start: 01-08-2023 Plain X-ray of right hand DO Sonido Chaudhari Work Phone: Start: 05-15-2022 Screening mammograph y of bilateral breasts DO Sonido Chaudhari Work Phone: Start: 07-22-2018 Screening for malign ant neoplasm of colon Sonido Chaudhari Other Start: 11-12-2015 General examination of patient Sonido Chaudhari Other Depression screening Sapna Chaudhari Other Depression screening Sapna Chaudhari Other Plan of Treatment Date Care Activity Detail Author Start: 12-08-2023 Plain X-ray of right hand XR hand RT min 3V* [facility] Start: 12-08-2023 XR Hand - right GE 3 Views [facility] Immunizations Immunization Date Immunization Notes Care Provider Jhoan pan 11-29-2020 COVID-19 Ad26.COV2.S (Marianela) DO Sonido Chaudhari Work Phone: [facility] 07-06-2019 influenza virus vaccine, split virus (incl. purified surface antigen) Sonido Chaudhari Other [facility] Other 07-06-2019 influenza virus vaccine, unspecified formulation DO Sonido Chaudhari Work Phone: [facility] 03-28-2019 Kenalog -40 mg Irma mott Other [facility] Other 02-08-2018 Kenalog -40 mg Irma Thade y Other [facility] Other 04-20-2016 diphtheria, tetanus toxoids and acellular pertussis vaccine, unspecified formulation Sonido Chaudhari Other [facility] Payers Date Payer Category Payer Private Health Insurance [id number] 1960 Self-pay 1960 Unknown [id number] 1960 Unknown [id number] [id number] 1960 Unknown [id number] Unknown [id number] 2.16.84 [id number] Unknown [id number] [id number] Unknown [id number] 2.16.8 [id number] Unknown [id number] 2.16.8 [id number] Social History Date Type Detail Facility Unknown if ever smoked [facility] Other Sex Assigned At Sex Assigned At Bir th [facility] Other Start: 03-06-2021 End: 10-09-2023 Tobacco smoking status RIIS Never smoked tobacco (finding) [facility] Start: 1960 Sex Assigned At Female [facility] Medical Equipment Procedure Code Equipment Code Equipment Origin al Text Equipment Identifier Dates Trapeziectomy Tendon/ligament bone anchor, non-bioabsorbable ([id number] Start: 03-06-2021 Clinical Notes 07-08-2021 to [...] normal BMI. Avoid Sudafed in cold medication [facility] Other 10-30-2023 Evaluation note* Encounter Date Diagnosis [...] patient on monthly SBE and yearly mammograms. 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) Cool compresses, Benadryl at [facility] Other 04-21-2023 Evaluation note* Encounter Date Diagnosis [...] Dec, Right hand pain (ICD-10 - M79.641) [facility] Other 02-13-2023 Evaluation note* Encounter Date Diagnosis Assessment Notes Treatment Notes Treatment Clinical Notes Oct, Obesity (ICD-10 - E66.9) [facility] Other 01-20-2023 Evaluation note* Encounter Date Diagnosis Assessment Notes Treatment Notes Treatment Clinical Notes Sep, Essential hypertension (ICD-10 - I10) [facility] Other 01-09-2023 Evaluation note* Encounter Date Diagnosis [...] mode of action, side effects w/ patient [facility] Other 10-19-2021 Evaluation note* Encounter Date Diagnosis [...] Other specified postprocedural states (ICD-10 - Z98.890) [facility] Other Evaluation noteNo assessment information available [facility] Work Phone: Evaluation noteNo InformationN[employer] Other Evaluation note* Diagnosis Onset Date Resolution Status Arthritis of carpometacarpal (CMC) joint of right thum b acute Pain of right hand acute Right carpal tunnel syndrome acute [facility] Work Phone: [employer] [facility] Narrative - Reported* Type Description Date Medical History HBP Medical History Hypothyroidism Medical History hypertension Surgical History tubal ligation Surgical History right shoulder repair Hospitalization History as above [facility] Other History general Narrative - Reported* Type Description Date Medical History Hyperlipidemia type II Medical History Depression screening Medical History Obesity Medical History ANEGLICA (generalized anxiety disorde r) Medical History Primary [...] Surgical History COLONOSCOPY Hospitalization History as above [facility] Other History general Narrative - Reported* Type [...] Surgical History COLONOSCOPY Hospitalization History as above [facility] Other History general Narrative - Reported* Type [...] History COLONOSCOPY 2018 Hospitalization History as above [facility] Other Summary Purpose Family History No Family History Records Found Relationship Condition Age at Onset Recorded Date/T jesse Not Specified Malignant neoplasm of lung Unknown father Cerebrovascular accident (CVA) Unknown Hypertension Unknown Congestive heart failure Unknown Alcohol abuse Unknown Relationship Condition Age at Onset Recorded Date/T jesse Not Specified Malignant neoplasm of lung Unknown father Cerebrovascular accident (CVA) Unknown Hypertension Unknown Congestive heart failure Unknown Alcohol abuse Unknown father History of stroke Unknown Unknown Not Specified Malignant neoplasm Unknown Advance Directives No Advanced Directives Records Found Advance Directive Response Recorded Date/ Time Advance Directives No February 11 8 5:40pm Chief Complaint and Reason for Visit Chief Complaint Z12.31 Chief Complaint OP/SP RIGHT HAND IRON N WANTS TO DISCUSS SURGERY M18.10 - Unilateral primary osteoarthritis of firs Reason for Visit Arthritis of carpome tacarpal (CMC) joint of right thumb Pain of right hand Right carpal tunnel syndrome Additional Source Comments INFORMATION SOURCE (unrecogn ized section and content) DATE CREATED AUTHOR 09/10/2021 [facility] DATE CREATED AUTHOR AUTHOR'S ORGANIZ ATION 08/18/2023 [facility] EPIC DATE CREATED AUTHOR AUTHOR'S ORGANIZ ATION 08/26/2023 [facility] DATE CREATED AUTHOR AUTHOR'S ORGANIZ ATION 12/12/2023 [facility] REASON FOR VISIT (unrecogniz ed section and content) Recheck Left Wristcoughing, headache, sinus congestion,No InformationNo InformationMedication ChangerefillRight Hand PainRashrefill?Mammogram resultsrefillwellnessSinuses, Cough, Congestion-Testing for COVID- [id number] InformationLab results Care Teams (unrecognized sec tion and content) Team Status: Active Member Role Status Dates Sonido Chaudhari DO Primary Care Provider Active Team Status: Active Member Role Status Dates Provider Conversion Attending Provider Active St art: October 09, 2023 Team Status: Inactive Member Role Status Adalid Chaudhari DO Primary Care Provider Active Start: December 08, 2023 End: December 08, 2023 Irma Mc MD Attending Provider Active Start: December 08, 2023 End: December 08, 2023 Team Status: Active Member Role Status Adalid Chaudhari DO Primary Care Provider Active Start: December 08, 2023 Irma Mc MD Attending Provider Active Start: December 08, 2023 Team Status: Inactive Member Role Status Adalid Chaudhari DO Primary Care Provider Active Teo Rivera MD Attending Provider Active Team Status: Inactive Member Role Status Adalid Chaudhari DO Primary Care Provider Active Irma Mc MD [...] BE BASED ON THE PRIMARY CLINICAL RECORDS. [employer] [facility]. provides no warranty or guarantee of the accuracy or completeness of information in this document.
[2024-04-10 14:50] LABS: Basophils Percent Auto 0.5 % (0.2-2.0); Eosinophils Absolute Auto 0.2 10^3/uL (0.0-0.7); Eosinophils Percent Auto 2.5 % (0.9-7.0); Hematocrit 36.9 % (36.0-48.0); Hemoglobin 12.2 g/dL (12.0-16.0); Immature Granulocytes Abs Auto 0.02 10^3/uL (0.00-0.03); Immature Granulocytes Pct Auto 0.3 % (0.0-0.5); Lymphocytes Absolute Auto 1.2 10^3/uL (1.2-3.8); Lymphocytes Percent Auto 20.4 % (20.5-60.0); Mean Corpuscular HGB Conc 33.1 g/dL (29.9-35.2); Mean Corpuscular Hemoglobin 32.5 pg (26.7-34.0); Mean Corpuscular Volume 98.4 fL (81.0-99.0); Mean Platelet Volume 9.7 fL (9.5-13.5); Monocytes Absolute Auto 0.5 10^3/uL (0.3-0.8); Monocytes Percent Auto 8.6 % (1.7-12.0); Neutrophils Percent Auto 67.7 % (43.0-75.0); Platelet Count 203 10^3/uL (150-450); Red Blood Count 3.75 10^6/uL (4.20-5.40); Red Cell Distribution Width 13.2 % (11.0-15.0); White Blood Count 5.9 10^3/uL (4.0-11.0)
[2024-04-10 15:28] LABS: Percent Iron Saturation 20.6 %
== END 2024-04-10 14:30 | disposition home or self-care (01) ==
LOC: LAB 14:31
PROVIDERS: PCP Internal Medicine; Visit Provider Internal Medicine
DX: D64.9 Anemia, unspecified (principal)
CPT/HCPCS: 36415; 82607; 82728; 82746; 83540; 83550; 85025

== ENCOUNTER 2025-02-01 08:47 | Outpatient (OUT) | payer MEDICARE, OTHER, SELFPAY ==
--- OUTSIDE RECORDS SUMMARY | 2025-02-01 09:12 | XMS_ITS | CCD ---
Author Organization [facility] Care Team Providers Care Supervisor Pairing And Inspecting Name Role Phone WATSON, DR LONGORIA Consulting Unavailable BALL, DR LONGORIA Attending Unavailable BALL, DR LONGORIA Admitting Unavailable BALL, DR LONGORIA Primary Care Unavailable REQUEST, DR JOSHI LISTED Admitting Unavaila ble REQUEST, DR JOSHI LISTED Consulting Unavaila ble REQUEST, NONE LISTED Attending Unavaila ble WATSON, DR LONGORIA Primary Care Unavailable Irma Mc Unavailable DO Sonido Chaudhari Primary Care Provider MD Teo Rivera Attending Provider Sonido Chaudhari Unavailable DO Sonido Chaudhari Primary Care Provider MD Irma Mc Attending Provider DO Sonido Chaudhari Primary Care Provider MD Teo Rivera Attending Provider DO Sonido Chaudhari Primary Care Provider MD Irma Mc Attending Provider DO Sonido Chaudhari Primary Care Provider MD Irma Mc Attending Provider Self, Referral Attending Provider Unavailable Sonido Chaudhari DO Primary Care Provider Irma Mc MD Attending Provider Self, Referral Attending Provider Unavailable Iram Mc Attending Unavailable Sonido Chaudhari Primary Care Unavailable Irma Mc Admitting Unavailable Self, Referral Admitting Unavailable Self, Referral Attending Unavailable Sonido Chaudhari Primary Care Unavailable Irma Mc Attending Unavailable Irma Mc Admitting Unavailable Sonido Chaudhari Primary Care Unavailable Irma Mc Attending Unavailable Irma Mc Admitting Unavailable Sonido Chaudhari Primary Care Unavailable Irma Mc Attending Unavailable Sonido Chaudhari Primary Care Unavailable Irma Mc Admitting Unavailable Irma Mc Attending Unavailable Irma Mc Admitting Unavailable Sonido Chaudhari Primary Care Unavailable Sonido Chaudhari MD Primary Care Provider TEO RIVERA Attending Unavailable MD Irma Mc Attending Unavailable MD Irma Mc Admitting Unavailable Sonido Chaudhari Primary Care Unavailable Sonido Chaudhari Primary Care Unavailable Allergies Allergy Classification Reported Allergen(s) Allergy Type Date of Onset Reaction(s) Facility (2 sources) patient allergy list reviewed by nurse or physicia Propensity to adverse reactions Comment:Done Regen Other (2 sources) Allergies Reconciled Propensity to adverse reactions Unknown Regen Other (9 sources) ceFAZolin; Translations: [cefazolin] Drug Allergy [facility] (1 source) No Known Medication Allergies; Translations: [No Known Medication Allergies] Propensity to adverse reactions to drug (disorder) [facility] Repository Medications Current Medications Medication Drug Class(es) [...] Sep, Active atorvastatin 20 mg oral tablet (20 sources) HMG-CoA Reductase Inhibitor Start: 12-08-2023 End: 07-24-2024 take 1 tablet by mouth once daily Atorvastatin 20 mg tablet Active 20 MG PO Daily 90 90 July 24, 2024 1:09pm take 1 tablet by mouth in the mo rning atorvastatin (Lipitor) 10 MG tablet Take 10 mg by mouth in the morning. Active take 1 tablet by mouth once estephania y Atorvastatin Calcium 20 MG Take 1 tablet by mouth once daily for 30 Active azithromycin 250 mg oral tablet (3 sources) Macrolide Antimicrobial Start: 09-10-2023 Azithromycin 250 MG as directed Orally daily for 5 days Aug, Active cholecalciferol 0.025 mg oral tablet (15 sources) Vitamin D Start: 08-24-2018 take 1 tablet by mouth once daily Cholecalciferol (Vitamin D3) (Vitamin D3) 1,000 unit Tablet Active 1000 UNIT PO Daily August 24, 2018 12:00am escitalopram 10 mg oral tablet (12 sources) Serotonin Reuptake Inhibitor take 1 tablet by mouth every twenty-four hours Escitalopram Oxalate 10 MG 1 tablet Orally Once a day Active levothyroxine sodium 0.137 mg oral tablet (20 sources) l-Thyroxine Start: 08-24-2018 End: 12-23-2023 take 1 tablet by mouth once daily Levothyroxine 137 mcg tablet Active 137 MCG PO Daily December 23, 2023 11:04am take 1 tablet by mouth once estehpania y Levothyroxine Sodium 137 MCG Take 1 tablet by mouth once daily Active lisinopril 5 mg oral tablet (20 sources) Angiotensin Converting Enzyme Inhibitor Start: 02-25-2021 take 1 tablet by mouth once daily Lisinopril 5 mg tablet Active 5 MG PO Daily February 24, 2021 11:00pm Multiple Vitamins-Minerals (CENTRUM ADULT PO) (3 sources) Multiple Vitamins-Minerals (CENTRUM ADULT PO) Take by mouth. Active Multivitamin preparation (13 sources) Start: 08-24-2018 take 1 tablet by mouth once daily Multivitamin Active 1 TAB PO Daily August 24, 2018 1:00am Multivitamin Tablet (2 sources) Start: 08-24-2018 take 1 tablet by mouth once daily Multivitamin Tablet Active 1 TAB PO Daily August 24, 2018 12:00am predniSONE 20 mg oral tablet (2 sources) [...] 02-08-2018 Kenalog -40 mg January, 10 mg {20 (nirmatrelvir 150 MG Ora l Tablet) / 10 (ritonavir 100 MG Oral Tablet) } Pack [Paxlovid 5-Day] (7 sources) take 3 tablets by [facility] every twelve hours Paxlovid (300/100) 20 x 150 MG & 10 x 100MG 3 tablets Orally Twice a day for 5 days Active Completed/Discontinued Medications Medication Drug Class(es) Dates Sig (Normalized) Sig (Original) acetaminophen 325 mg / HYDROcodone bitartrate 5 mg oral tablet (20 sources) Opioid Agonist Start: 05-25-2024 End: 07-24-2024 take 1 tablet by mouth every four to six hours as needed for pain Hydrocodone-Acetami nophen 5-325 mg tablet Discontinued 1 - 2 TAB PO EVERY 4-6 HOURS as needed for pain 50 7 June 30, 2024 July 24, 2024 11:59am Dispense: 50 (Fifty) Diagnosis: M18.11, G56.01 Start: 03-06-2021 End: 12-08-2023 take 1 tablet by mouth every four to six hours as needed for pain Hydrocodone-Acetaminophen 5-325 mg table t Discontinued 1 - 2 TAB PO EVERY 4-6 HOURS as needed for pain 50 7 March 06, 2021 December 08, 2023 9:29am alendronic acid 70 mg oral tablet (15 sources) Bisphosphonate Start: 08-24-2018 End: 02-25-2021 take 1 tablet by mouth every week Alendronate 70 mg tablet Discontinued 70 MG PO every week August 24, 2018 12:00am February 25, 2021 1:10pm amoxicillin 875 mg / clavulanate 125 mg oral tablet (7 sources) Penicillin-class Antibacterial Start: 03-01-2023 take 1 tablet by mouth every twelve hours Amoxicillin-Pot Clavulanate 875-125 MG 1 tablet Orally every 12 hrs for 10 day(s) Feb, Not-Taking/PRN Diclofenac (11 sources) Nonsteroidal Anti-inflammatory Drug Start: 12-08-2023 End: 05-11-2024 Diclofenac Sodium (Voltaren Arthritis Pain) 1 % gel Discontinued 0 TOPICAL .COMPLEX 100 December 07, 2023 11:00pm May 11, 2024 8:04am apply 1-2 grams to affected area topically twice a day Start: 12-08-2023 End: 05-11-2024 Diclofenac Sodium (Voltaren Arthritis Pain) 1 % gel Discontinued 0 TOPICAL .COMPLEX 100 December 08, 2023 12:00am May 11, 2024 9:04am apply 1-2 grams to affected area topically twice a day Start: 12-08-2023 Diclofenac Sod ium (Voltaren Arthritis Pain) 1 % gel Active 0 TOPICAL .COMPLEX 100 December 08, 2023 12:00am apply 1-2 grams to affected area topically twice a day doxycycline hyclate 100 mg oral capsule (20 sources) Tetracycline-class Drug Start: 07-03-2024 End: 07-24-2024 take 1 capsule by mouth twice daily Doxycycline Hyclate 100 mg capsule Discontinued 100 MG PO Twice daily 02 04July 02, 2024 11:00pm July 24, 2024 12:00pm Start: 05-25-2024 End: 06-12-2024 take 1 tablet by mouth twice daily Doxycycline Hyclate 100 mg tablet Discontinued 100 MG PO Twice daily 06 24May 24, 2024 11:00pm June 12, 2024 7:56am Start: 09-28-2022 take 1 capsule by mo [facility] twice daily Doxycycline Hyclate 100 MG 1 capsule Orally twice daily for 7 days Sep, Active Start: 03-06-2021 End: 12-08-2023 take 1 tablet by mouth twice daily Doxycycline Hyclate 100 mg tablet Discontinued 100 MG PO Twice daily 10 March 05, 2021 11:00pm December 08, 2023 9:29am Glucos Sul 6mjf-Pjs-Qyltv-C-Mn (Glucosamine Chondroitin) 550-30-1 mg Capsule (15 sources) Start: 02-25-2021 End: 05-11-2024 take 1 capsule by mouth once daily Glucos Sul 3tgt-Xna-Ityzt-C-Mn (Glucosamine Chondroitin) 550-30-1 mg Capsule Discontinued 1 CAP PO Daily February 24, 2021 11:00pm May 11, 2024 8:04am Start: 02-25-2021 End: 05-11-2024 take 1 capsule by mouth once daily Glucos Sul 9ycm-Vbu-Iuldx-C-Mn (Glucosamine Chondroitin) 550-30-1 mg Capsule Discontinued 1 CAP PO Daily February 25, 2021 12:00am May 11, 2024 9:04am Start: 02-25-2021 take 1 capsule by mo [facility] once daily Glucos Sul 1lto-Ozt-Cghpt-C-Mn (Glucosamine Chondroitin) 550-30-1 mg Capsule Active 1 CAP PO Daily February 25, 2021 12:00am methylPREDNISolone 4 mg oral tablet (3 sources) Corticosteroid Start: 07-03-2024 End: 07-24-2024 take 1 tablet by mouth once Methylprednisolone (Medrol (Vinicius)) 4 mg tablets,dose pack Discontinued 0 PO per package directions July 02, 2024 11:00pm July 24, 2024 12:00pm PO PER PKG DIR for 6 days ondansetron 4 mg oral tablet (7 sources) Serotonin-3 Receptor Antagonist Start: 05-26-2024 End: 07-24-2024 Ondansetron Hcl 4 mg tablet Discontinued 4 MG PO every 6 to 8 hours as needed for Nausea 08 04May 25, 2024 11:00pm July 24, 2024 12:01pm thiamine 250 mg oral tablet (15 sources) Start: 08-24-2018 End: 02-25-2021 take 1 tablet by mouth once daily Thiamine Hcl (Vitamin B1) (Vitamin B-1) 250 mg Tablet Discontinued 250 MG PO Daily August 24, 2018 12:00am February 25, 2021 1:10pm zolpidem tartrate 5 mg oral tablet (20 sources) gamma-Aminobutyric Acid-ergic Agonist Start: 02-18-2024 End: 05-11-2024 take 1 tablet by mouth once daily at bedtime Zolpidem 5 mg tablet Discontinued 5 MG PO Daily at bedtime February 18, 2024 12:15pm May 11, 2024 8:04am Start: 01-25-2023 take 1 tablet by christopher at bedtime as needed Zolpidem Tartrate 5 MG 1 tablet at bedtime as needed Orally PRN for 30 days January, Active take 1 tablet by christopher every twenty-four hours Zolpidem Tartrate 5 MG 1 tablet at bedtime as needed Orally Once a day Active Problems Active Problems Problem Classification Problem Date [...] not specified as acute or chronic] Episodic Deficiency and other anemia (10 sources) Anemia; Translations: [Anemia, unspecified] 01-05-2024 Episodic Deficiency and other anemia (2 sources) Anemia, unspecified; Translations: [Anemia, unspecified] 07-24-2024 Episodic Disorders of lipid metabolism (20 sources) [...] Onset: 06-08-2017 Chronic Miscellaneous mental health disorders (20 sources) Primary insomnia; Translations: [Primary insomnia] 02-18-2024 Chronic Mycoses (2 sources) Tinea corporis; Translations: [...] right thumb] Episodic Other connective tissue disease (12 sources) Pain in right hand; Translations: [Pain in limb] Episodic Other connective tissue disease (10 sources) Hand pain; Translations: [Pain in right hand] 12-08-2023 Episodic Other nervous system disorders (16 sources) Carpal tunnel syndrome of left wrist; Translations: [Carpal tunnel syndrome, left upper limb] Chronic Other nervous system disorders (20 sources) Carpal tunnel syndrome of right wrist; Translations: [Carpal tunnel syndrome, right upper limb] 12-08-2023 Chronic Other nervous system disorders (20 sources) Carpal tunnel syndrome, right upper limb; Translations: [Carpal tunnel syndrome] Onset: 07-08-2021 Resolved: 07-08-2021 Chronic Other nervous system disorders (1 source) Carpal tunnel syndrome, left upper limb; Translations: [Carpal tunnel syndrome, left G56.02] Onset: 07-08-2021 Resolved: 07-08-2021 Chronic Other nervous system disorders (13 sources) Carpal tunnel syndrome; Translations: [Carpal tunnel syndrome, unspecified upper limb] 03-06-2021 Chronic Other nervous system disorders (2 sources) Meralgia paresthetica; Translations: [Meralgia paresthetica] Onset: 03-12-2017 Chronic Other nervous system disorders (13 sources) Pain in limb; Translations: [Other acute postprocedural pain] 03-06-2021 Episodic Other nutritional; endocrine; and metabolic disorders (19 sources) Obesity; Translations: [Obesity, unspecified] 07-24-2024 Chronic Other nutritional; endocrine; and metabolic disorders (5 sources) Obesity, unspecified; Translations: [Obesity, unspecified] Chronic Other nutritional; endocrine; [...] conditions (not mental disorders or infectious disease) (20 sources) Patient encounter status; Translations: [Encounter for screening for malignant neoplasm of colon] Onset: 01-29-2015 08-26-2018 Episodic Other upper respiratory infections (6 sources) Acute maxillary sinusitis; Translations: [Acute maxillary sinusitis, unspecified] Onset: 02-12-2015 Episodic Poisoning by nonmedicinal substances (2 sources) Toxic effect of venom of bees, accidental (unintentional), initial encounter; Translations: [Toxic effect of venom] 07-03-2024 Episodic Residual codes; unclassified (15 sources) Other specified postprocedural states; Translations: [Other postprocedural status] Onset: 07-08-2021 Resolved: 07-08-2021 Episodic Residual codes; unclassified (6 sources) Postprocedural state finding; Translations: [Other specified postprocedural states] 06-08-2024 Episodic Spondylosis; intervertebral disc disorders; other back [...] thyroiditis; Translations: [Autoimmune thyroiditis] Onset: 01-29-2015 Chronic Past or Other Problems Problem Classification Problem Date Documented Da te Episodic/Chronic Bacterial infection; unspecified site (2 sources) [...] adult] Onset: 01-29-2015 Episodic Residual codes; unclassified (2 sources) Sleep [...] Test Name Value Interpretation Reference Range Facility Physical Therapy Noteon 12-3 Physical Therapy Note [id number] [facility] X-ray reportOrdered By: Kenyatta Wiggins on 08-02-2024 Study report [facility] [address] [place] [address] XRay Report Signed Patient: Naida Mane MR#: [id number] : 1960 Acct:[id number] Age/Sex: 64 / F ADM Date: 4 [place] [facility] [place] [facility] Dr: Irma Mc MD Copies to: Irma Mc MD~ Ordering Provider: Irma Mc MD Date of Service: 08/02/24 XR/XR hand RT min 3V*: Z98.890 - Other specified postprocedural states RIGHT HAND - 4 views CLINICAL DATA: Follow-up after right carpal tunnel release and trapeziectomy. COMPARISON: 06/30/2024 AP, lateral and oblique views were obtained along with supplemental AP view of the thumb. Postoperative changes of trapeziectomy are again seen. There is no developing fracture or dislocation. Minor degenerative changes are present. There are no significant soft tissue abnormalities. XR/XR hand RT min 3V* IMPRESSION: SIMILAR POSTOPERATIVE CHANGES AT THE LATERAL WRIST. NO ACUTE FINDINGS Impression dictated by: Paula Wiggins M.D.08/02/2024 10:10 AM Dictation Location: [place] [address] Transcribed By: [facility] 08/02/24 1010 Dictated By: Paula Wiggins MD 08/02/24 1008 Signed By: 08/02/24 1010 [facility] Work Phone: XR hand RT min 3V*on 024 XR hand RT min 3V* [facility] [address] [place] [address] XRay Report Signed Patient: Naida Mane MR#: [id number] : 1960 Acct:[id number] Age/Sex: 64 / F ADM Date: 08/02/24 [place] [facility] [place]: [facility] Dr: Irma Mc MD Copies to: Irma Mc MD Ordering Provider: Irma Mc MD Date of Service: 08/02/24 XR/XR hand RT min 3V*: Z98.890 - Other specified postprocedural states RIGHT HAND - 4 views CLINICAL DATA: Follow-up after right carpal tunnel release and trapeziectomy. COMPARISON: 06/30/2024 AP, lateral and oblique views were obtained along with supplemental AP view of the thumb. Postoperative changes of trapeziectomy are again seen. There is no developing fracture or dislocation. Minor degenerative changes are present. There are no significant soft tissue abnormalities. XR/XR hand RT min 3V* IMPRESSION: SIMILAR POSTOPERATIVE CHANGES AT THE LATERAL WRIST. NO ACUTE FINDINGS Impression dictated by: Paula Wiggins M.D.08/02/2024 10:10 AM Dictation Location: [place] [address] Transcribed By: [facility] 08/02/24 1010 Dictated By: Paula Wiggins MD 08/02/24 1008 Signed By: 08/02/24 1010 Normal [facility] Coding Summaryon 07-17-2024 Coding Summary HTMLBase 64 YspkosbuMGv6nTq+PGh lYWQ+CB3PTNPvX73yxI WxzE7zC0LGEAuPLwxzX XSKCYxJTbVypsAvCV4u aXNjZXJu IC8+CA9gOYAaXthnePR yv9H3aBZ3T90avc8mYO ynoIZ3UEZnStPeymfhm 8lniYw2QTziUurzZbYp HXBxmH32NWL0fI21Sh0 1zSIteZFsw3cxxAi8Ds FqWZZwUHO4yIpgEPyom 0GmRUCjV08qhIBmq0X8 IGNvbGxhcHNlOyBlbXB 9lU5nPLfphbene0qphr vgVyy1ed26nPMse6Y8f OX7Z9JwzdA4LYWqjOXq TzlxyCGEgR7jvzjrx9i jmwlxOhCeFWQaKOm8GF v4JRGxgBxdSqZnZN69G RI6JHHgtgKlA1BmDENt gFyoQwL3p2K4Kv0JP1X PEffgY3PAUEWXKEvfcK Q+CR23ac39R2NkIqwtT cz4LCRxNZG0mYR1cZ8e CZJnJQlui9B1vKT0S7B sxaMeyn1zc3ukABMlSN qgV00nqAEvx8M9BYDxk CS3FFGlgNwsNaPiyI59 Oyc+GRLxjXcln9JwZtw xo5nvj7faoKk7RmdlDH TycbAepAktNRQ7n5WxJ k5rEDXcpAR1gFH1dJ9x KwEzOoJ3XNwuF538JeT vgUNzZubtS93oX6WftF A+PCYuLpi5MKNqrOvfF I5yN7ZqLACkebnlzXXw wWveAN1qNRRgarxyUCF tkF7sAVOqT1f5NbCtWm F0YTcdD7SsAVMadchrN a58gX3iDhJcSbS0HOht S8VbudQ5GTHooSLpMVb bBFY4T44xi0P5JHWjQN HhNDT4lGZ7vR4jqLjpv jogbGVmdDsgdmVydGlj DZcsISzfW642HTUusGe nPkNvZGluZyBEYXRlOi AgMTAvMjgvMjAyNDwvd GQ+OSPgXPR6gHsxLOGz ySKoMUxvTl2feVmtoDg uCN0nVJKrqufiIEFnxV 2tELCjsDHyyEdlBH5bV UHfdjgrj764BoXoWQL7 MMYleBSbR7FobN3wFiC lYQIqATJuG5HyyOTgOI jgD641WMhiTdZ0NMJyp rTvI8ScTBZxxEknWhN3 i6Y8Jm6Sd7EkhqdmB2T poAHeWuQyVntuEXt9F9 RkPjwvdHI+PD73FIScP V07PQc5ARA3eQsxDVaf JXPbV5SnvQ8iBdGvJPM kZGRkOyc+PHRhYmxlIH dpZHRoPScxMDAlJyBzd FsgLI5pXm1pLAVgKULx uDvvmLCsOoSny3eaUGV xLXvoGK9rqXpzY2NfcZ R6ZUNfw6a3Zl75G91hJ 3JvdXA+QVJqcEL2iEL8 bN2jLmBmUuA1UEtdK84 9QdGvbSMtKqnct2ymu5 pqmSf5JdM1NOMufnGoi JszRUT9g3IiGv45Y07u IHdpZHRoPSIxNSUiIHZ keFtbwz4tvG0nEl8+PG VjcYT1tDH9nD7fJdGfO aO4MIptJ727FuYetDTm Yislk2kzq9cydTn9NlI xJJDwcdUwmAlgCQJ8t3 KaNk35F8WqbKrxh6GnO bg7qj44gVAxc1Y1cMM7 U0FbKBVethukmJNwsHk mDC5dHVPunavoHLRqaJ 7xKKWfF0a2WpGeZnX2V WirZ5RltsP1QRIkaUGl YHPspNLWcH2soqide4w zwsdqZySaMRGjRNh2RJ a7LQNhyTdjRiRxLRJ1X jG3IVJ9vITcqP3qrQli ywiprD7rFov+CNK1hYB qpCDMCV1lEenjeTM+PH OeAKL5qWufDHtmKCMcg Q9uQPDrE7c3MfTyXoL2 BSagF6OjknC1FIIhmRW pQVZawMRPsQ5fjrxok8 hgtzevUdHpMRRaUQw5T Ab1XSTuvHadMvDeSYZ5 JyK4ELI9yRGiiD1ocOy yrryjpU8oHkv+QmlydG zpLTG0HEz7G0PtHjv6U HNbaHmoPJ0leQByXHph Si4xvAaexSgsZW8eDHJ kfinll691QiQxr3rqFU SwuFDtAOraSFZ8D39gg 0V0VBVzUNMfSFL1aTV2 mT2jgFivldhkaPUxlSq gdmVydGljYWwtYWxpZ2 69ZXIzxFugBzMgEXd1G 2ZwVgr6LKTodYhwIP6d lWHhLFqgQk0yaZbjfAu xPE4nNSZleptsm158Uo Rck0vsICTibGFkSNwqI HM4K70fl8P4YSJeTQBr BGE3dYU5dX7qmFprdld gbGVmdDsgdmVydGljYW qhPBzkT414PWPhvFqfA qEpqDq2V8BqEbm8PDIj oHnzYF7ctAPaMGopOx1 grTumhDqkHK6wFVRrsi icp108RdRja6vxPTJov AAeCBayDQT9A31cr8Q4 KOGvSMLrDVI5cUA7nR8 hbGlnbjogbGVmdDsgdm UsrDhkIDsnYRrxJ399U HRvcDsnPlBhdGllbnQg NSfbQSv6N6GoXcxheTM +ZJ56OGGkLA57bGPysC Bsj6mroMt0IjPvOJAnN NA5iHnfNSxdy6KzNITi Z13tiNHxr0D7JKNpbXr nzVDtMaQbkAG0eA2kVL zelittf7bxesfcFpxyj 1tcwo68tR72T90gQXtv ZHRoPSIzMCUiIHZhbGl san5fcL2hUb6+PGNvbC M5hRO7xL5xGWKfMzF5V DruK550QmBszHNuXzxg y5jij7ozpKj5WfI8PYO ntdKmmWknJVR5q5UyGm 66V10cLNarCCEsOETrK CQxBBXonEpelx3tgN6o Ii8+JLMddZK3sFD9cE1 sKzRsNtC7GRotE495Dv ZiqTEdQvwoV50lC7Cjp XA+KURwIep7PGHobHxr AP9xyLGyADjqWp6xGPD 1NgEbJuVrDHxqH6EsFV PuvbcsgpmvyXS2UKVwH SAbaV11Zk5fsQleNPNo qLHQgY2gtqrrd7qurai cElElFWKjYJk8SXw5FL IocKifJuMiYYQ0JsF5F HY4eRXuxC1vcQtnhlic lM1uX7WqBMYxrogcDt4 9qK7hWpPeSlG3GTnbHi c+REVBUlRILCBDQVRIW FAHLK79PT72xNDzo2F2 bPY6H5CzCVQwghnhwle osDD3FRIhWZFqoH90gM FaGSrhRk4kw2U1r243H EBlKTItiF08Cm6eePgc JWApgPCItI3zstomi4l laocjXkCjHNDjIOv2SQ j1HABgpMgaSpVrONA6Q zC6HEL3cOBrnX9zlXxs arkagT6nKlp+MTAvMTI yFHs2ZFivgWR+PHRkIH Q8vZrgYOzlQKGtxQ1vB VUtR2i9SpKzEtH3BHxp P7ZiUMTovmjqSk43rR4 nQlAiIhE0YIkqA2Byew I9CYZcsGFsZAihQBN8H 62la8H4VVPzBWElCHH4 eDG3jV2qsLcihekqsYT mdDsgdmVydGljYWwtYW ptT376TNAjoUpqVcU9V UbpRGPwMF86MS23kDAn v6F6wOG5L1CaREZfyrl rhjomaLO8ZROwEDLihR 61xCYdTNabJs3nz6N0f 547BHCbGTKjjG30Kx2i hGubJGVwvRXScY2ybkh bu5sfoluaQnUrEPLkNL q2AVe7PALjmKshQcZaB UZ1HtN8AWT4fWSnaK1j eXsllktpkN2oMoy+RkV FPZlXKY97OM84hZSwk0 N4rGG2X5TtQYYovupav qmdkRC0KUUgBXQtgU12 bXXbZVxqTh2ao6L4i43 5UTCdLSKbpK02Bg2lnD qqRBZdcIAGqZ9hcxvcc 5hfaqpyJiKhZMQuASq8 VJy2XIKquWqeKiIeCWS 3MdL9FJM8hHEzuH9daR rzfnjupG9vOll+UmVjd MRuuF0tJN98iJDdyOcq lpQ8O0IcQxzghWV+PC9 7IVAxUH17ePNtiTJnv6 aqlGa8LzFgTJElVTF3l QapXSpmc3OtUWEgA82r yYNiw5O4MTGhuUwnaET dHqHyzTH9wA0nNVlxmy qay7ddatmfMqzkh3ckx m81cT54Z00eZAojCQXm PSIzMCUiIHZhbGlnbj0 gbD3vDa6+EKEzlHM8qF A6pA7gEqIgIqK7EBaxR 346NfUdoEAfLdmkx5br v5fjdMw4DxXeFAPhjkP iyZhuUUJ3c5WdRl96H7 9sIHdpZHRoPSIyMCUiI IIvnBntoc8piR9aQq0+ XH8lk5hjxe79iW26oNV +EJZuOWJ2sXmzSCezFL RknO5uODahHqK8VFVxK gZdoJ80xAAeVNtzFo3r zGmzoGgkXN8cPNJrcgu bs419KeRfp6rcSVBhdG VvBAfoFDO2L46nd3Q8R CNgQDPeNYQ1fYP1wO5t bGlnbjogbGVmdDsgdmV nkGweYHwuTVgyA474FP NpnGfzUsJxnNZuD7fao iCOQS2cBfszfHW+PHRk SNC1xUdcINuuYHBovR3 eOBWxC9w9NlRiSmJ5KK ukQ3YaovI6YQTcxUNrH OCfiYMSgF5fujqzw2nu usowIfYnUVCuSJx8TAf 2KVOznFilFpTeSTC0Xq Z9OGQ8tVPmkC0ikWbtz nlkdS2wBkq+RklOOjwv dGQ+TIIuLOV4qXvrQCd cVHJjaB1wSDAsN7j3Em NkKgM4SUtbR1BrmxM4C GVlqZPyZGDytPOEfL0m cmsvh2zhdujtFnMhVNP dKWw1JRz4HUQeuFoaSb KtSUL0AlY0DQI0eJFbx G9scWotbyybbE1lCle+ TVJOOjwvdGQ+PHRkIHN 8cJzrBOevCJWofO3yTN MoO2o2QmRqLqI2AXqyJ 4JqopN3CYLhoIWxYQRn qZDHwL2fprivl4halya dRgMdAOHfYFe5GKk2GL FdiFczSaAwDRG1UcM6Y ZP3zDHfaX5nhVqutlou zI5nNgm+OWS4MTJ0MT7 9AL95M4PuZzoyyRYbrL U+PHRhYmxlIHdpZHRoP GgrRCXuIoEkaPsbVT1x Ym9 (more content not included)... [facility] Provider Orderson 07-04-2024 Provider Orders [id number] Consent Forms [id number] [facility] min 3V*on 024 XR hand RT min 3V* [facility] [address] [place] [address] XRay Report Signed Patient: Naida Mane MR#: [id number] 19 : 1960 Acct:[id number] Age/Sex: 63 / F ADM Date: 06/30/24 [place] [facility] [place] Type[place] [facility] Attending Dr: Irma Mc MD Copies to: Irma Mc MD Ordering Provider: Irma Mc MD Date of Service: 06/30/24 XR/XR hand RT min 3V*: XR OUT OF CAST 4 views right hand plain film COMPARISON: Perioperative comparison 05/25/2024 HISTORY: Resection of trapezium. Follow-up assessment ACUTE FINDINGS: None DEGENERATIVE CHANGE: Similar degeneration SOFT TISSUE FINDINGS: Unremarkable JOINT EFFUSION: None POSTOP CHANGES: Uncomplicated findings of resection of trapezium. Are clear space measures 7.3 mm. BONY MINERALIZATION: Adequate XR/XR hand RT min 3V* IMPRESSION: Uncomplicated findings of resection of the trapezium. Impression dictated by: Bal Harley M.D.06/30/2024 9:47 AM Dictation Location: [place] [address] Transcribed By: [facility] 06/30/24946 Dictated By: Bal Harley DO 06/30/2446 Signed By: 06/30/2447 Normal [facility] Standard 06-15-2024 eGFR Non AA >60 Invalid Interpretation Code [facility] Comment on above: Performed By: #### 9 [id number], [id number], [id number], [id number], [id number], [id number], [id number] #### [facility] (DEFAULT) [address] [place] [address] 98019 eGFR AA >60 Invalid Interpretation Code [facility] Comment on above: Performed By: #### 9 [id number], [id number], [id number], [id number], [id number], [id number], [id number] #### [facility] (DEFAULT) [address] [place] [address] 44471 Albumin [Mass/Vol] 4.0 g/dL Normal 3.5-5.0 [facility] Comment on above: Performed By: #### 9 [id number], [id number], [id number], [id number], [id number], [id number], [id number] #### [facility] (DEFAULT) [address] [place] [address] 77010 Alk Phos 78 IU/L Normal 32-91 [facility] Comment on above: Performed By: #### 9 [id number], [id number], [id number], [id number], [id number], [id number], [id number] #### [facility] (DEFAULT) [address] [place] [address] 38224 ALT [Catalytic activity/Vol] 29.0 U/L Normal 14.0-54.0 [facility] Comment on above: Performed By: #### 9 [id number], [id number], [id number], [id number], [id number], [id number], [id number] #### [facility] (DEFAULT) [address] [place] [address] 33598 AST [Catalytic activity/Vol] 22 U/L Normal 15-41 [facility] Comment on above: Performed By: #### 9 856621, 0869578, 0153639, 8007999, [id number], 9205901, [id number] #### [facility] (DEFAULT) [address] [place] [address] 97798 Bili Total 1.0 mg/dL Normal 0.3-1.2 [facility] Comment on above: Performed By: #### 9 537651, 0203127, 9207832, 6335280, [id number], 4420287, [id number] #### [facility] (DEFAULT) [address] [place] [address] 30923 Calcium [Mass/Vol] 9.0 mg/dL Normal 8.9-10.3 [facility] Comment on above: Performed By: #### 9 263753, 5170650, 4991210, 1837759, [id number], 5448008, [id number] #### [facility] (DEFAULT) [address] [place] [address] 01946 Chloride [Moles/Vol] 101 mmol/L Normal 101-111 [facility] Comment on above: Performed By: #### 9 468102, 8620216, 8987307, 3523891, [id number], 6225472, [id number] #### [facility] (DEFAULT) [address] [place] [address] 43338 CO2 [Moles/Vol] 27 mmol/L Normal 21-32 [facility] Comment on above: Performed By: #### 9 865568, 5212984, 3331391, 8704561, [id number], 3109436, [id number] #### [facility] (DEFAULT) [address] [place] [address] 89691 Creatinine [Mass/Vol] 0.74 mg/dL Normal 0.60-1.30 [facility] Comment on above: Performed By: #### 9 530050, 0080489, 7503467, 8203972, [id number], 0954469, [id number] #### [facility] (DEFAULT) [address] [place] [address] 18881 Glucose [Mass/Vol] 95.0 mg/dL Normal 74.0-118.0 [facility] Comment on above: Performed By: #### 9 022263, 0753087, 7669844, 0917253, [id number], 8803495, [id number] #### [facility] (DEFAULT) [address] [place] [address] 93641 Potassium [Moles/Vol] 3.9 mmol/L Normal 3.6-5.1 [facility] Comment on above: Performed By: #### 9 351585, 0340118, 8978330, 2051436, [id number], 8649311, [id number] #### [facility] (DEFAULT) [address] [place] [address] 76443 Protein [Mass/Vol] 7.2 g/dL Normal 6.5-8.1 [facility] Comment on above: Performed By: #### 9 630464, 2173705, 3904634, 9829074, [id number], 6104873, [id number] #### [facility] (DEFAULT) [address] [place] [address] 77928 Sodium [Moles/Vol] 135.0 mmol/L Low 136.0-144.0 [facility] Comment on above: Performed By: #### 9 172150, 4406409, 0312499, 5603676, 8343575285, 6686597, [id number] #### [facility] (DEFAULT) [address] [place] [address] 84984 Urea nitrogen [Mass/Vol] 21 mg/dL Normal 8-26 [facility] Comment on above: Performed By: #### 9 039627, 3298095, 9325302, 2831650, 1322744336, 4900406, [id number] #### [facility] (DEFAULT) [address] [place] [address] 63136 Albumin/Globulin [Mass ratio] 1.2 {ratio} Low 1.4-2.6 [facility] Comment on above: Performed By: #### 9 347960, 1637363, 4141675, 6378558, [id number], 6554911, [id number] #### [facility] (DEFAULT) [address] [place] [address] 08826 Anion gap [Moles/Vol] 10.9 mmol/L Normal 5.0-19.0 [facility] Comment on above: Performed By: #### 9 569904, 2176570, 3832651, 0982093, [id number], 5890152, [id number] #### [facility] (DEFAULT) [address] [place] [address] 26030 Globulin (S) [Mass/Vol] 3.2 g/dL Normal 1.5-4.3 [facility] Comment on above: Performed By: #### 9 386285, 3529449, 0244741, 1773996, [id number], 1755485, [id number] #### [facility] (DEFAULT) [address] [place] [address] 04451 Osmolality 273 mOsm/L Invalid Interpretation Code [facility] Comment on above: Performed By: #### 9 100754, 0571781, 1607336, 6790108, [id number], 4561833, [id number] #### [facility] (DEFAULT) [address] [place] [address] 23918 Urea nitrogen/Creatinine [Mass ratio] 28.3 mg/mg High 4.6-16.2 [facility] Comment on above: Performed By: #### 9 697216, 4614761, 7966764, 1155987, [id number], 1442128, [id number] #### [facility] (DEFAULT) [address] [place] [address] 82996 Cholesterol in LDL Calc [Mas s/Vol]on 06-15-2024 Cholesterol in LDL [Mass/Vol] 94 mg/dL 1-100 [facility] Cholesterol in LDL [Mass/Vol] Cholesterol in LDL [Mass/volume] in Serum or Plasma by calculation 100 [facility] Cholesterol in VLDL Calc [Ma ss/Vol]on 06-15-2024 Cholesterol in VLDL [Mass/Vol] 31 mg/dL 40 [facility] Cholesterol in VLDL [Mass/Vol] Cholesterol in VLDL [Mass/volume] in Serum or Plasma by calculation [facility] Estimated glomerular filtrat ion rate (GFR) non- Americanon 06-15-2024 GFR/1.73 sq M.predicted among non-blacks MDRD (S/P/Bld) [Vol rate/Area] mL/min/{1.73_m2} [facility] GFR/1.73 sq M.predicted among non-blacks MDRD (S/P/Bld) [Vol rate/Area] Estimated glomerular filtration rate (GFR) non- [facility] GGTon 06-15-2024 Gamma glutamyl transferase [Catalytic activity/Vol] 40.0 U/L Normal 7.0-50.0 [facility] Comment on above: Performed By: #### 9 046893, 3415865, 7289626, 7322064, [id number], 8224372, [id number] #### [facility] (DEFAULT) [address] [place] [address] 84160 Globulin Calc (S) [Mass/Vol] on 06-15-2024 Globulin (S) [Mass/Vol] 3.2 g/dL 1.5-4.3 [facility] Globulin (S) [Mass/Vol] Serum globulin measurement by calculation (mass/volume) 1.5-4.3 [facility] Iron Levelon 06-15-2024 Iron [Mass/Vol] 117.0 ug/dL Normal 28.0-170.0 [facility] Comment on above: Performed By: #### 9 202621, 5856698, 3153809, 7385456, [id number], 2604101, [id number] #### [facility] (DEFAULT) [address] [place] [address] LDHon 06-15-2024 LDH 162.0 IU/L Normal 98.0-192.0 [facility] Comment on above: Performed By: #### 9 485943, 3053649, 9922872, 6147880, [id number], 7705590, 8348427644 #### [facility] (DEFAULT) [address] [place] [address] Laboratory - Chemistry and C hemistry - challengeon 06-15-2024 Albumin [Mass/Vol] 4.0 g/dL 3.5-5.0 [facility] ALP [Catalytic activity/Vol] 78 U/L 32-91 [facility] ALT [Catalytic activity/Vol] 29.0 U/L 14.0-54.0 [facility] Amylase [Catalytic activity/Vol] 40.0 U/L 7.0-50.0 [facility] AST [Catalytic activity/Vol] 22 U/L 15-41 [facility] Bilirubin [Mass/Vol] 1.0 mg/dL 0.3-1.2 [facility] Calcium [Mass/Vol] 9.0 mg/dL 8.9-10.3 [facility] Chloride [Moles/Vol] 101 mmol/L 101-111 [facility] Cholesterol [Mass/Vol] 170.0 mg/dL 66.0-200.0 [facility] Cholesterol in HDL [Mass/Vol] 44 mg/dL 40-71 [facility] CO2 [Moles/Vol] 27 mmol/L 21-32 [facility] Creatinine [Mass/Vol] 0.74 mg/dL 0.60-1.30 [facility] GFR/1.73 sq M.predicted MDRD (S/P/Bld) [Vol rate/Area] mL/min/{1.73_m2} [facility] Glucose [Mass/Vol] 95.0 mg/dL 74.0-118.0 [facility] Iron [Mass/Vol] 117.0 ug/dL 28.0-170.0 [facility] LDH [Catalytic activity/Vol] 162.0 U/L 98.0-192.0 [facility] Potassium [Moles/Vol] 3.9 mmol/L 3.6-5.1 [facility] Protein [Mass/Vol] 7.2 g/dL 6.5-8.1 [facility] Sodium [Moles/Vol] 135.0 mmol/L Low 136.0-144.0 [facility] Triglyceride [Mass/Vol] 157.0 mg/dL High 0.0-150.0 [facility] Urate [Mass/Vol] 4.2 mg/dL 2.6-8.0 [facility] Urea nitrogen [Mass/Vol] 21 mg/dL - [facility] Urea nitrogen/Creatinine [Mass ratio] 28.3 mg/mg High 4.6-16.2 [facility] Lipid Panel Standardon 06-15 Cholesterol [Mass/Vol] 170.0 mg/dL Normal 66.0-200.0 [facility] Comment on above: Performed By: #### 9 251458, 9144627, 0594141, 9996361, [id number], 2811422, [id number] #### [facility] (DEFAULT) [address] [place] [address] 13075 Cholesterol in HDL [Mass/Vol] 44 mg/dL Normal 40-71 [facility] Comment on above: Performed By: #### 9 435758, 2845669, 8672947, 3992206, 3560949818, 2209431, [id number] #### [facility] (DEFAULT) [address] [place] [address] Triglyceride [Mass/Vol] 157.0 mg/dL High 0.0-150.0 [facility] Comment on above: Performed By: #### 9 999446, 6288799, 9831685, 6400798, 6065232723, 1935349, [id number] #### [facility] (DEFAULT) [address] [place] [address] 10967 Cholesterol in LDL [Mass/Vol] 94 mg/dL Normal 1-100 [facility] Comment on above: Performed By: #### 9 261784, 4270710, 9652626, 2684090, 4236857793, 8272560, [id number] #### [facility] (DEFAULT) [address] [place] [address] 20771 Cholesterol.total/Traci sterol in HDL [Mass ratio] 3.8 {ratio} Normal 0.0-4.5 [facility] Comment on above: Performed By: #### 9 768338, 9902158, 4723408, 7243130, [id number], 1379477, [id number] #### [facility] (DEFAULT) [address] [place] [address] 23347 VLDL. 31 mg/dL Normal 5-40 [facility] Comment on above: Performed By: #### 9 618073, 0647337, 4013035, 0697974, [id number], 8593838, [id number] #### [facility] (DEFAULT) [address] [place] [address] 36246 No Panel Informationon 06-15 Osmolality 273 mOsm/L [facility] Phosphorus Level 3.7 mg/dL 2.5-4.6 [facility] Phoson 06-15-2024 Phosphate [Mass/Vol] 3.7 mg/dL Normal 2.5-4.6 [facility] Comment on above: Performed By: #### 9 417599, 7280341, 0516435, 1564645, [id number], 3843679, [id number] #### [facility] (DEFAULT) [address] [place] [address] 12253 Serum or plasma albumin/glob ulin mass ratioon 06-15-2024 Albumin/Globulin [Mass ratio] 1.2 {ratio} Low 1.4-2.6 [facility] Albumin/Globulin [Mass ratio] Serum or plasma albumin/globulin mass ratio Low 1.4-2.6 [facility] Serum or plasma anion gap de terminationon 06-15-2024 Anion gap [Moles/Vol] 10.9 mmol/L 5.0-19.0 [facility] Anion gap [Moles/Vol] Serum or plasma anion gap determination 5.0-19.0 [facility] Serum or plasma total choles terol/high density lipoprotein (HDL) cholesterol mass chinedu 06-15-2024 Cholesterol.total/Traci sterol in HDL [Mass ratio] 3.8 {ratio} 0.0-4.5 [facility] Cholesterol.total/Traci sterol in HDL [Mass ratio] Serum or plasma total cholesterol/high density lipoprotein (HDL) cholesterol mass rat 0.0-4.5 [facility] Uric Acidon 06-15-2024 Urate [Mass/Vol] 4.2 mg/dL Normal 2.6-8.0 [facility] Comment on above: Performed By: #### 9 821027, 9493940, 5456920, 2327517, [id number], 7332794, [id number] #### [facility] (DEFAULT) [address] [place] [address] MM screening mammo BI w/CADo n 05-31-2024 MM screening mammo BI w/CAD [facility] [address] [place] [address] [place] [address] Mammography Report Signed Patient: Naida Mane MR#: [id number] 19 : 1960 Acct:[id number] Age/Sex: 63 / F ADM Date: 05/31/24 Loc: ID Room: Type: [facility] Attending Dr: Referral Self Copies to: Sonido Chaudhari DO SELF,REFERRAL Ordering Provider: SELF,REFERRAL Date of Service: 05/31/24 MM/MM screening mammo BI w/CAD: SCREENING CLINICAL DATA: Screening for malignancy. BILATERAL SCREENING MAMMOGRAMS - FULL FIELD DIGITAL WITH TOMOSYNTHESIS AND CAD Tomosynthesis craniocaudal and mediolateral oblique views of both breasts were obtained using low- dose digital technique. Comparison is made to prior studies from May 09, 2020 through May 26, 2023. This examination was reviewed with the aid of CAD. There are scattered fibroglandular densities. Benign and vascular calcifications are present. Benign-appearing nodularity is seen. Two biopsy marking clips are visualized at the lateral left breast. There are no developing masses, [...] next mammogram. Impression dictated by: Paula Wiggins M.D.05/31/2024 4:14 PM Dictation Location: [facility] Transcribed By: JANICE 05/31/24 1614 Dictated By: Paula Wiggins MD 05/31/24 1609 Signed By: 05/31/24 1614 Normal [facility] XR finger RT thumbon 024 XR finger RT thumb [facility] [place] [address] XRay Report Signed Patient: Naida Mane MR#: [id number] [birth year] : 1960 Acct:[id number] Age/Sex: 63 / F ADM Date: 05/25/24 Loc: OR Room: Type: [facility] Attending Dr: Irma Mc MD Copies to: Irma Mc MD Ordering Provider: Irma Mc MD Date of Service: 05/25/24 XR/XR finger RT thumb: / PORTABLE RIGHT THUMB -16 images: CLINICAL DATA: Intra-Op localization for trapeziectomy COMPARISON: 12/08/2023 Multiple AP, lateral and oblique views of the right thumb were obtained before, during and after trapeziectomy. Cumulative Air Kerma in mGy: 0.2264 mGy Impression dictated by: Paula Wiggins M.D.05/25/2024 3:21 PM Dictation Location: [place] [address] Transcribed By: JANICE 05/25/24 1521 Dictated By: Paula Wiggins MD 05/25/24 1515 Signed By: 05/25/24 1521 Normal [facility] Alanine aminotransferase [En zymatic activity/volume] in Serum or PlasmaOrdered By: Irma Mc on 05-11-2024 ALT [Catalytic activity/Vol] 22 U/L Normal [facility] Comment on above: Performed By: #### C MP wRFX A1C, CBC #### [facility] [address] [place] [address] [place] ALT [Catalytic activity/Vol] Alanine aminotransferase [Enzymatic activity/volume] in Serum or Plasma [facility] Albumin [Mass/volume] in Ser um or Plasma by Bromocresol green (BCG) dye binding methoOrdered By: Irma Mc on 05-11-2024 Albumin BCG dye [Mass/Vol] 4.0 g/dL 3.5-5.7 [facility] Albumin BCG dye [Mass/Vol] Albumin [Mass/volume] in Serum or Plasma by Bromocresol green (BCG) dye binding metho 3.5-5.7 [facility] Alkaline phosphatase [Enzyma tic activity/volume] in Serum or PlasmaOrdered By: Irma Mc on 05-11-2024 ALP [Catalytic activity/Vol] 81 U/L Normal 34-104 [facility] Comment on above: Result Comment: PERF ORMED BY: [place] [address] PATHOLOGIST HONING MACHINE SET UP OPERATOR MIGUE DE JESUS M.D. Performed By: #### C MP wRFX A1C, CBC #### [facility] [address] [place] [id number] [facility] ALP [Catalytic activity/Vol] Alkaline phosphatase [Enzymatic activity/volume] in Serum or Plasma 34-104 [facility] Aspartate aminotransferase [ Enzymatic activity/volume] in Serum or PlasmaOrdered By: Irma Mc on 05-11-2024 AST [Catalytic activity/Vol] 16 U/L Normal 13-39 [facility] Comment on above: Performed By: #### C MP wRFX A1C, CBC #### [facility] [address] [place] [address] [place] AST [Catalytic activity/Vol] Aspartate aminotransferase [Enzymatic activity/volume] in Serum or Plasma 13-39 [facility] Automated basophil %Ordered By: Irma Mc on 05-11-2024 Basophils/100 WBC (Bld) 0.7 % Normal . [facility] Comment on above: Performed By: #### C MP wRFX A1C, CBC #### [facility] [address] Automated basophil countOrde red By: Irma Mc on 05-11-2024 Basophils (Bld) [#/Vol] 0.0 10*3/uL Normal 0.0-0.2 [facility] Comment on above: Result Comment: PERF ORMED BY: [place] [address] PATHOLOGIST HONING MACHINE SET UP OPERATOR MIGUE DE JESUS M.D. Performed By: #### C MP wRFX A1C, CBC #### [address] Automated blood monocyte cou ntOrdered By: Irma Mc on 05-11-2024 Monocytes (Bld) [#/Vol] 0.4 10*3/uL Normal 0.0-0.8 [facility] Comment on above: Performed By: #### C MP wRFX A1C, CBC #### [address] Automated eosinophil %Ordere d By: Irma Mc on 05-11-2024 Eosinophils/100 WBC (Bld) 2.9 % Normal . [facility] Comment on above: Performed By: #### C MP wRFX A1C, CBC #### [address] Automated eosinophil countOr dered By: Irma Mc on 05-11-2024 Eosinophils (Bld) [#/Vol] 0.2 10*3/uL Normal 0.0-0.45 [facility] Comment on above: Performed By: #### C MP wRFX A1C, CBC #### [address] Automated monocyte %Ordered By: Irma Mc on 05-11-2024 Monocytes/100 WBC (Bld) 7.2 % Normal . [facility] Comment on above: Performed By: #### C MP wRFX A1C, CBC #### [facility] [address] Automated neutrophil %Ordere d By: Irma Mc on 05-11-2024 Neutrophils/100 WBC (Bld) 66.9 % Normal . [facility] Comment on above: Performed By: #### C MP wRFX A1C, CBC #### [facility] [address] [place] [address] [place] Basophils Auto (Bld) [#/Vol] Ordered By: Irma Mc on 05-11-2024 Basophils (Bld) [#/Vol] Automated basoph il count 0.0-0.2 [facility] Basophils/100 WBC Auto (Bld) Ordered By: Irma Mc on 05-11-2024 Basophils/100 WBC (Bld) Automated basoph il % . [facility] Bilirubin.total [Mass/volume ] in Serum or PlasmaOrdered By: Irma Mc on 05-11-2024 Bilirubin [Mass/Vol] 0.4 mg/dL Normal 0.3-1.0 [facility] Comment on above: Performed By: #### C MP wRFX A1C, CBC #### [facility] [address] [place] [address] [place] Bilirubin [Mass/Vol] Bilirubin.total [Mass/volume] in Serum or Plasma 0.3-1.0 [facility] CMP with reflex to A1Con Albumin [Mass/Vol] 4.0 g/dL Normal 3.5-5.7 [facility] Comment on above: Performed By: #### C MP wRFX A1C, CBC #### [facility] [address] [place] [id number] [place] GFR/1.73 sq M.predicted MDRD (S/P/Bld) [Vol rate/Area] mL/min/{1.73_m2} Normal [facility] Comment on above: Performed By: #### C MP wRFX A1C, CBC #### [facility] [address] [place] [address] [place] Calcium [Mass/volume] in Ser um or PlasmaOrdered By: Irma Mc on 05-11-2024 Calcium [Mass/Vol] 9.2 mg/dL Normal 8.6-10.3 [facility] Comment on above: Performed By: #### C MP wRFX A1C, CBC #### [facility] [address] [place] [address] [place] Calcium [Mass/Vol] Calcium [Mass/volume] in Serum or Plasma 8.6-10.3 [facility] Carbon dioxide, total [Moles /volume] in Serum or PlasmaOrdered By: Irma Mc on 05-11-2024 CO2 [Moles/Vol] 26.5 mmol/L Normal 21.0-31.0 [facility] Comment on above: Performed By: #### C MP wRFX A1C, CBC #### [facility] [address] [place] [id number] [place] CO2 [Moles/Vol] Carbon dioxide, total [Moles/volume] in Serum or Plasma 21.0-31.0 [facility] Chloride [Moles/volume] in S rolf or PlasmaOrdered By: Irma Mc on 05-11-2024 Chloride [Moles/Vol] 107 mmol/L Normal 98-107 [facility] Comment on above: Performed By: #### C MP wRFX A1C, CBC #### [facility] [address] [place] [id number] [place] Chloride [Moles/Vol] Chloride [Moles/volume] in Serum or Plasma 98-107 [facility] Complete Blood Count Auto Di ffon 05-11-2024 Mean Corpuscular HGB Conc 34.7 g/dL Normal 32.0-35.0 [facility] Comment on above: Performed By: #### C MP wRFX A1C, CBC #### [facility] [address] [place] [address] [place] NRBC% 0.1 /100{WBC} Normal 0-0.5 [facility] Comment on above: Performed By: #### C MP wRFX A1C, CBC #### [facility] [address] [place] [id number] [facility] Creatinine [Mass/volume] in Serum or PlasmaOrdered By: Irma Mc on 05-11-2024 Creatinine [Mass/Vol] 0.74 mg/dL Normal 0.60-1.20 [facility] Comment on above: Performed By: #### C MP wRFX A1C, CBC #### [facility] [address] [place] [id number] [facility] Creatinine [Mass/Vol] Creatinine [Mass/volume] in Serum or Plasma 0.60-1.20 [facility] ECG 12 lead ECGon 05-11-2024 ECG 12 lead ECG [facility] [address] [place] [address] [place] [address] Electrocardiograph Report Signed Patient: Naida Mane MR#: [id number] 19 : 1960 Acct:[id number] Age/Sex: 63 / F ADM Date: 05/11/24 Loc: Room: Type: [facility] Attending Dr: Irma Mc MD Ordering Provider: Irma Mc MD Date of Service: 05/11/24 ECG/ECG 12 lead ECG: Pre op Copies to: Test Reason : Blood Pressure : */* mmHG Vent. Rate : 77 BPM Atrial Rate : 77 BPM P-R Int : 176 ms QRS Dur : 88 ms QT Int : 370 ms P-R-T Axes : 28 -10 20 degrees QTcB Int : 418 ms Normal sinus rhythm Minimal voltage criteria for LVH, may be normal variant ( R in aVL ) Borderline ECG When compared with ECG of 25-Feb-2021 13:48, No significant change was found Confirmed by MARIA ELENA BUTT MD ([id number]) on 05/13/2024 12:57:54 AM Referred By: Electronically Signed By: MARIA ELENA BUTT MD Transcribed By: [facility] Signed By Maria Elena Butt MD 0 05/13/24 0057 Normal [facility] Eosinophils Auto (Bld) [#/Vo l]Ordered By: Irma Mc on 05-11-2024 Eosinophils (Bld) [#/Vol] Automated eosinophil count 0.0-0.45 [facility] Eosinophils/100 WBC Auto (Bl d)Ordered By: Irma Mc on 05-11-2024 Eosinophils/100 WBC (Bld) Automated eosinophil % . [facility] Erythrocyte distribution wid th Auto (RBC) [Ratio]Ordered By: Irma Mc on 05-11-2024 Erythrocyte distribution width (RBC) [Ratio] Erythrocyte distribution width [Ratio] by Automated count 11.9-15.3 [facility] Erythrocyte distribution wid th [Ratio] by Automated countOrdered By: Irma Mc on 05-11-2024 Erythrocyte distribution width (RBC) [Ratio] 13.6 % Normal 11.9-15.3 [facility] Comment on above: Performed By: #### C MP wRFX A1C, CBC #### [facility] [address] Erythrocytes [#/volume] in B lood by Automated countOrdered By: Irma Mc on 05-11-2024 RBC (Bld) [#/Vol] 3.63 10*6/uL Normal 3.60-5.00 [facility] Comment on above: Performed By: #### C MP wRFX A1C, CBC #### [facility] [address] Globulin Calc (S) [Mass/Vol] Ordered By: Irma Mc on 05-11-2024 Globulin (S) [Mass/Vol] Serum globulin measurement by calculation (mass/volume) [facility] Glucose [Mass/volume] in Ser um or PlasmaOrdered By: Irma Mc on 05-11-2024 Glucose [Mass/Vol] 86 mg/dL Normal 70-100 [facility] Comment on above: Performed By: #### C MP wRFX A1C, CBC #### [facility] [address] [place] [address] [place] Glucose [Mass/Vol] Glucose [Mass/volume] in Serum or Plasma 70-100 [facility] Hematocrit Auto (Bld) [Volum e fraction]Ordered By: Irma Mc on 05-11-2024 Hematocrit (Bld) [Volume fraction] Hematocrit [Volume Fraction] of Blood by Automated count Low 34.0-46.4 [facility] Hematocrit [Volume Fraction] of Blood by Automated countOrdered By: Irma Mc on 05-11-2024 Hematocrit (Bld) [Volume fraction] 33.9 % Low 34.0-46.4 [facility] Comment on above: Performed By: #### C MP wRFX A1C, CBC #### [facility] [address] Hemoglobin [Mass/volume] in BloodOrdered By: Irma Mc on 05-11-2024 Hemoglobin (Bld) [Mass/Vol] 11.7 g/dL Low 11.8-15.4 [facility] Comment on above: Performed By: #### C MP wRFX A1C, CBC #### [address] Hemoglobin (Bld) [Mass/Vol] Hemoglobin [Mass/volume] in Blood Low 11.8-15.4 [facility] Leukocytes [#/volume] correc orquidea for nucleated erythrocytes in Blood by Automated counOrdered By: Irma Mc on 05-11-2024 WBC corrected for nucl RBC Auto (Bld) [#/Vol] 5.2 10*3/uL 3.8-11.6 [facility] WBC corrected for nucl RBC Auto (Bld) [#/Vol] Leukocytes [#/volume] corrected for nucleated erythrocytes in Blood by Automated coun 3.8-11.6 [facility] Leukocytes [#/volume] in Blo od by Automated countOrdered By: Irma Mc on 05-11-2024 WBC (Bld) [#/Vol] 5.2 10*3/uL Normal 3.8-11.6 [facility] Comment on above: Performed By: #### C MP wRFX A1C, CBC #### [place] [address] [place] Lymphocytes Auto (Bld) [#/Vo l]Ordered By: Irma Mc on 05-11-2024 Lymphocytes (Bld) [#/Vol] Lymphocytes [#/volume] in Blood by Automated count 1.00-4.8 [facility] Lymphocytes [#/volume] in Bl ood by Automated countOrdered By: Irma Mc on 05-11-2024 Lymphocytes (Bld) [#/Vol] 1.2 10*3/uL Normal 1.00-4.8 [facility] Comment on above: Performed By: #### C MP wRFX A1C, CBC #### [facility] [place] [facility] [address] Lymphocytes/100 WBC Auto (Bl d)Ordered By: Irma Mc on 05-11-2024 Lymphocytes/100 WBC (Bld) Lymphocytes/100 leukocytes in Blood by Automated count . [facility] Lymphocytes/100 leukocytes i n Blood by Automated countOrdered By: Irma Mc on 05-11-2024 Lymphocytes/100 WBC (Bld) 22.3 % Normal . [facility] Comment on above: Performed By: #### C MP wRFX A1C, CBC #### [facility] [place] [facility] [address] [place] [address] MCH Auto (RBC) [Entitic mass ]Ordered By: Irma Mc on 05-11-2024 MCH (RBC) [Entitic mass] MCH [Entitic mass] by Automated count 24.7-34.3 [facility] MCH [Entitic mass] by Automa orquidea countOrdered By: Irma Mc on 05-11-2024 MCH (RBC) [Entitic mass] 32.4 pg Normal 24.7-34.3 [facility] Comment on above: Performed By: #### C MP wRFX A1C, CBC #### [facility] [place] [facility] [address] [place] [address] MCHC Auto (RBC) [Mass/Vol]Or dered By: Irma Mc on 05-11-2024 MCHC (RBC) [Mass/Vol] 34.7 g/dL 32.0-35.0 [facility] MCHC (RBC) [Mass/Vol] MCHC [Mass/volume] by Automated count 32.0-35.0 [facility] MCV Auto (RBC) [Entitic vol] Ordered By: Irma Mc on 05-11-2024 MCV (RBC) [Entitic vol] MCV [Entitic volume] by Automated count 80-100 [facility] MCV [Entitic volume] by Auto mated countOrdered By: Irma Mc on 05-11-2024 MCV (RBC) [Entitic vol] 93.4 fL Normal 80-100 [facility] Comment on above: Performed By: #### C MP wRFX A1C, CBC #### [facility] [place] [facility] [address] Monocytes Auto (Bld) [#/Vol] Ordered By: Irma Mc on 05-11-2024 Monocytes (Bld) [#/Vol] Automated blood monocyte count 0.0-0.8 [facility] Monocytes/100 WBC Auto (Bld) Ordered By: Irma Mc on 05-11-2024 Monocytes/100 WBC (Bld) Automated monocy te % . [facility] Neutrophils Auto (Bld) [#/Vo l]Ordered By: Irma Mc on 05-11-2024 Neutrophils (Bld) [#/Vol] Neutrophils [#/volume] in Blood by Automated count 1.8-7.7 [facility] Neutrophils [#/volume] in Bl ood by Automated countOrdered By: Irma Mc on 05-11-2024 Neutrophils (Bld) [#/Vol] 3.5 10*3/uL Normal 1.8-7.7 [facility] Comment on above: Performed By: #### C MP wRFX A1C, CBC #### [facility] [place] [facility] [address] [place] [address] [place] Neutrophils/100 WBC Auto (Bl d)Ordered By: Irma Mc on 05-11-2024 Neutrophils/100 WBC (Bld) Automated neutrophil % . [facility] No Panel InformationOrdered By: Irma Mc on 05-11-2024 Estimated GFR (CKD-EPI) > 60.0 mL/Min [facility] Creatinine Clearance (Chem N/A [facility] Nucleated erythrocytes [Pres ence] in Blood by Automated countOrdered By: Irma Mc on 05-11-2024 Nucleated RBC Auto Ql (Bld) 0.1 /100{WBC} 0-0.5 [facility] Nucleated RBC Auto Ql (Bld) Nucleated erythrocytes [Presence] in Blood by Automated count 0-0.5 [facility] Platelet mean volume Auto (B ld) [Entitic vol]Ordered By: Irma Mc on 05-11-2024 Platelet mean volume (Bld) [Entitic vol] Platelet mean volume [Entitic volume] in Blood by Automated count 6.3-10.7 [facility] Platelet mean volume [Entiti c volume] in Blood by Automated countOrdered By: Irma Mc on 05-11-2024 Platelet mean volume (Bld) [Entitic vol] 7.7 fL Normal 6.3-10.7 [facility] Comment on above: Performed By: #### C MP wRFX A1C, CBC #### [address] Platelets Auto (Bld) [#/Vol] Ordered By: Irma Mc on 05-11-2024 Platelets (Bld) [#/Vol] Platelets [#/volume] in Blood by Automated count 150-450 [facility] Platelets [#/volume] in Bloo d by Automated countOrdered By: Irma Mc on 05-11-2024 Platelets (Bld) [#/Vol] 204 10*3/uL Normal 150-450 [facility] Comment on above: Performed By: #### C MP wRFX A1C, CBC #### [address] Potassium [Moles/volume] in Serum or PlasmaOrdered By: Irma Mc on 05-11-2024 Potassium [Moles/Vol] 4.0 mmol/L Normal 3.5-5.1 [facility] Comment on above: Performed By: #### C MP wRFX A1C, CBC #### [facility] [place] [facility] [address] [place] [address] [place] Potassium [Moles/Vol] Potassium [Moles/volume] in Serum or Plasma 3.5-5.1 [facility] Protein [Mass/volume] in Ser um or PlasmaOrdered By: Irma Mc on 05-11-2024 Protein [Mass/Vol] 6.6 g/dL Normal 6.4-8.9 [facility] Comment on above: Performed By: #### C MP wRFX A1C, CBC #### [facility] [place] [facility] [address] [place] [address] Protein [Mass/Vol] Protein [Mass/volume] in Serum or Plasma 6.4-8.9 [facility] RBC Auto (Bld) [#/Vol]Ordere d By: Irma Mc on 05-11-2024 RBC (Bld) [#/Vol] Erythrocytes [#/volume] in Blood by Automated count 3.60-5.00 [facility] Serum globulin measurement b y calculation (mass/volume)Ordered By: Irma Mc on 05-11-2024 Globulin (S) [Mass/Vol] 2.6 g/dL Normal F [facility] Comment on above: Performed By: #### C MP wRFX A1C, CBC #### [facility] [place] [facility] [address] [place] [address] Serum or plasma albumin/glob ulin mass ratioOrdered By: Irma Mc on 05-11-2024 Albumin/Globulin [Mass ratio] 1.5 {ratio} Normal [facility] Comment on above: Performed By: #### C MP wRFX A1C, CBC #### [address] Albumin/Globulin [Mass ratio] Serum or plasma albumin/globulin mass ratio [facility] Serum or plasma anion gap de terminationOrdered By: Irma Mc on 05-11-2024 Anion gap [Moles/Vol] 11.5 mmol/L Normal 6.0-15.0 [facility] Comment on above: Performed By: #### C MP wRFX A1C, CBC #### [facility] [place] [facility] [address] [place] [address] Anion gap [Moles/Vol] Serum or plasma anion gap determination 6.0-15.0 [facility] Sodium [Moles/volume] in Ser um or PlasmaOrdered By: Irma Mc on 05-11-2024 Sodium [Moles/Vol] 141 mmol/L Normal 136-145 [facility] Comment on above: Performed By: #### C MP wRFX A1C, CBC #### [facility] [place] [facility] [address] Sodium [Moles/Vol] Sodium [Moles/volume] in Serum or Plasma 136-145 [facility] Urea nitrogen [Mass/volume] in Serum or PlasmaOrdered By: Irma Mc on 05-11-2024 Urea nitrogen [Mass/Vol] 21 mg/dL Normal 04-13 [facility] Comment on above: Performed By: #### C MP wRFX A1C, CBC #### [facility] [place] [facility] [address] [place] [address] [facility] Urea nitrogen [Mass/Vol] Urea nitrogen [Mass/volume] in Serum or Plasma 04-13 [facility] WBC Auto (Bld) [#/Vol]Ordere d By: Irma Mc on 05-11-2024 WBC (Bld) [#/Vol] Leukocytes [#/volume] in Blood by Automated count 3.8-11.6 [facility] Basophils Auto (Bld) [#/Vol] on 04-10-2024 Basophils (Bld) [#/Vol] 0.0 10 3/uL 0.0-0.1 [facility] Basophils/100 WBC Auto (Bld) on 04-10-2024 Basophils/100 WBC (Bld) 0.5 % 0.2-2.0 [facility] Eosinophils/100 WBC Auto (Bl d)on 04-10-2024 Eosinophils/100 WBC (Bld) 2.5 % 0.9-7.0 [facility] Erythrocyte distribution wid th Auto (RBC) [Ratio]on 04-10-2024 Erythrocyte distribution width (RBC) [Ratio] 13.2 % 11.0-15.0 [facility] Hematocrit Auto (Bld) [Volum e fraction]on 04-10-2024 Hematocrit (Bld) [Volume fraction] 36.9 % 36.0-48.0 [facility] Hemoglobin [Mass/volume] in Bloodon 04-10-2024 Hemoglobin (Bld) [Mass/Vol] 12.2 g/dL 12.0-16.0 [facility] Iron binding capacity [Mass/ volume] in Serum or Plasmaon 04-10-2024 Iron binding capacity [Mass/Vol] 369.0 ug/dL 250.0-450.0 [facility] Iron saturation [Mass Fracti on] in Serum or Plasmaon 04-10-2024 Iron saturation [Mass fraction] 20.6 % [facility] Laboratory - Chemistry and C hemistry - challengeon 04-10-2024 Cobalamin (Vitamin B12) [Mass/Vol] 600.0 pg/mL 193.0-986.0 [facility] Ferritin [Mass/Vol] 139.0 ng/mL 8.0-252.0 [facility] Iron [Mass/Vol] 76.0 ug/dL 50.0-170.0 [facility] Laboratory - Hematology and Cell countson 04-10-2024 Immature granulocytes/100 WBC (Bld) 0.3 % 0.0-0.5 [facility] Leukocytes [#/volume] correc orquidea for nucleated erythrocytes in Blood by Automated counon 04-10-2024 WBC corrected for nucl RBC Auto (Bld) [#/Vol] 5.9 10 3/uL 4.0-11.0 [facility] Lymphocytes Auto (Bld) [#/Vo l]on 04-10-2024 Lymphocytes (Bld) [#/Vol] 1.2 10 3/uL 1.2-3.8 [facility] Lymphocytes/100 WBC Auto (Bl d)on 04-10-2024 Lymphocytes/100 WBC (Bld) 20.4 % Low 20.5-60.0 [facility] MCH Auto (RBC) [Entitic mass ]on 04-10-2024 MCH (RBC) [Entitic mass] 32.5 pg 26.7-34.0 [facility] MCHC Auto (RBC) [Mass/Vol]on 04-10-2024 MCHC (RBC) [Mass/Vol] 33.1 g/dL 29.9-35.2 [facility] MCV Auto (RBC) [Entitic vol] on 04-10-2024 MCV (RBC) [Entitic vol] 98.4 fL 81.0-99.0 [facility] Monocytes Auto (Bld) [#/Vol] on 04-10-2024 Monocytes (Bld) [#/Vol] 0.5 10 3/uL 0.3-0.8 [facility] Monocytes/100 WBC Auto (Bld) on 04-10-2024 Monocytes/100 WBC (Bld) 8.6 % 1.7-12.0 [facility] Neutrophils Auto (Bld) [#/Vo l]on 04-10-2024 Neutrophils (Bld) [#/Vol] 4.0 10 3/uL 1.4-6.5 [facility] Neutrophils/100 WBC Auto (Bl d)on 04-10-2024 Neutrophils/100 WBC (Bld) 67.7 % 43.0-75.0 [facility] No Panel Informationon 04-10 Eosinophils # (Auto) 0.2 10 3/uL 0.0-0.7 [facility] Folate 20.20 ng/mL 8.60-58.90 [facility] Immature Granulocyte # (Auto) 0.02 10 3/uL 0.00-0.03 [facility] Platelet mean volume Auto (B ld) [Entitic vol]on 04-10-2024 Platelet mean volume (Bld) [Entitic vol] 9.7 fL 9.5-13.5 [facility] Platelets Auto (Bld) [#/Vol] on 04-10-2024 Platelets (Bld) [#/Vol] 203 10 3/uL 150-450 [facility] RBC Auto (Bld) [#/Vol]on RBC (Bld) [#/Vol] 3.75 10 6/uL Low 4.20-5.40 [facility] XR hand RT min 3V*on 024 XR hand RT min 3V* [facility] [address] XRay Report Signed Patient: Naida Mane MR#: [id number] 18 : 1960 Acct:[id number] Age/Sex: 63 / F ADM Date: 12/08/23 Loc: SOXD Room: Type: REG CLI Attending Dr: Irma Mc MD Copies to: [...] Bal Harley M.D.12/08/2023 3:18 PM Dictation Location: [place] [address] Transcribed By: [facility] 12/08/23 1518 Dictated By: Bal Harley DO 12/08/23 151 Signed By: 12/08/23 1518 Normal [facility] CPKon 09-04-2021 CK [Catalytic activity/Vol] 54 U/L Normal 30-135 [facility] Comment on above: Performed By: #### C K #### [facility] [address] [place] [address] Dr. Nancy Kincaid CREATININEon 09-04-2021 Creatinine [Mass/Vol] 0.91 mg/dL Normal 0.52-1.04 [facility] Comment on above: Performed By: #### C KATHERINE DLDL, ALT #### [facility] [address] [place] [address] [address] Nancy Kincaid EGFR-AF IVORIAN >60 Normal >=60 [facility] Comment on above: Performed By: #### C KATHERINE, DLDL, ALT #### [facility] [address] [place] [address] [address] Nancy Kincaid EGFR-NON AF IVORIAN >60 Normal >=60 [facility] Comment on above: Performed By: #### C KATHERINE, DLDL, ALT #### [facility] [address] [place] [address] [address] Nancy Kincaid DIRECT LDLon 09-04-2021 Cholesterol in LDL [Mass/Vol] 86 mg/dL Normal [facility] Comment on above: Performed By: #### C KATHERINE, DLDL, ALT #### [facility] [address] [place], [place] [address] Dr. Nancy Kincaid DLDL NORMAL SEE BELOW Normal [facility] Comment on above: Result Comment: <100 mg/dl OPTIMAL 100 - 129 mg/dl NEAR OR ABOVE OPTIMAL 130 - 159 mg/dl BORDERLINE HIGH 160 - 189 mg/dl HIGH >190 mg/dl VERY HIGH Performed By: #### C KATHERINE, DLDL, ALT #### [facility] [address] [place], [place] [address] Dr. Nancy Kincaid SGPTon 09-04-2021 ALT [Catalytic activity/Vol] 40 U/L Normal [facility] Comment on above: Performed By: #### C KATHERINE, DLDL, ALT #### [facility] [address] [place], [place] [address] Dr. Nancy Kincaid XR hand LT min 3V*on 021 XR hand LT min 3V* [facility] [employer] Other XR hand LT min 3V* [facility] [employer] Other XR hand LT min 3V* [address] [place] [address] [employer] Other XR hand LT min 3V* [address] [employer] Other XR hand LT min 3V* XRay Report [facility] [employer] Other XR hand LT min 3V* Signed [facility] Other XR hand LT min 3V* Patient: Naida Mane MR#: [id number] [employer] [place] [employer] Other XR hand LT min 3V* 19 [facility] Other XR hand LT min 3V* : 1960 Acct:[id number] [facility] [employer] Other XR hand LT min 3V* Age/Sex: 61 / F ADM Date: 07/08/21 [facility] Other XR hand LT min 3V* Loc: SOX Room: Type: [facility] Other XR hand LT min 3V* Attending Dr: Irma Mc MD [facility] Other XR hand LT min 3V* Ordering Provider: Irma Mc MD [facility] Other XR hand LT min 3V* Date of Service: 07/08/21 [facility] Other XR hand LT min 3V* XR/XR hand LT min 3V*: Arthritis of carpometacarpal (CMC) joint of left [facility] Other XR hand LT min 3V* thumb [facility] Other XR hand LT min 3V* Copies to: Irma Mc MD [facility] Other XR hand LT min 3V* 4 viewsLEFT hand plain film [facility] Other XR hand LT min 3V* COMPARISON:04/09/21 [facility] Other XR hand LT min 3V* HISTORY:Status post LEFT trapezium ectomy. [facility] Other XR hand LT min 3V* There is resection of the trapezium. There is no new findings. [facility] Other XR hand LT min 3V* XR/XR hand LT min 3V* [facility] Other XR hand LT min 3V* IMPRESSION:Stable postoperative changes. [facility] Other XR hand LT min 3V* Impression dictated by: Bal Harley M.D.07/08/2021 10:31 AM [facility] Other XR hand LT min 3V* Dictation Location: [address] [employer] Other XR hand LT min 3V* Transcribed By: [facility] 07/08/21 1031 [facility] [employer] Other XR hand LT min 3V* Dictated By: Bal Harley DO 07/08/21 1029 [facility] [employer] Other XR hand LT min 3V* Signed By: [facility] [employer] Other XR hand LT min 3V* 07/08/21 1031 [facility] [employer] Other Vital Signs Date Time Vital Sign Value Performing Clinician Facility 08-22-2024 11:21-0500 Body mass index (BMI) [Ratio] 28.29 kg/m2 Teo Rivera MD Work Phone: [facility] 08-22-2024 11:21-0500 Body weight 77.11 kg Teo Rivera MD Work Phone: [facility] 08-22-2024 11:21-0500 Diastolic blood pressure 84 mm[Hg] Teo Rivera MD Work Phone: [facility] 08-22-2024 11:21-0500 Systolic blood pressure 122 mm[Hg] Teo Rivera MD Work Phone: [facility] 07-24-2024 11:14-0500 Body height 163.83 cm Sonido Ball DO Work Phone: [facility] 07-24-2024 11:14-0500 Body mass index (BMI) [Ratio] 33.5 kg/m2 Sonido Ball DO Work Phone: [facility] 07-24-2024 11:14-0500 Body weight 89.98 kg Sonido Ball DO Work Phone: [facility] 07-24-2024 11:14-0500 Diastolic blood pressure 75 mm[Hg] Sonido Ball DO Work Phone: [facility] 07-24-2024 11:14-0500 Heart rate 71 /min Sonido Ball DO Work Phone: [facility] 07-24-2024 11:14-0500 Respiratory rate 12 /min Sonido Ball DO Work Phone: [facility] 07-24-2024 11:14-0500 Systolic blood pressure 130 mm[Hg] Sonido Ball DO Work Phone: [facility] 07-03-2024 18:37-0400 Body height 163.83 cm DO Sonido Ball Work Phone: [facility] 07-03-2024 18:37-0400 Body mass index (BMI) [Ratio] 34 kg/m2 DO Sonido Ball Work Phone: [facility] 07-03-2024 18:37-0400 Body temperature 98.3 [degF] DO Sonido Ball Work Phone: [facility] 07-03-2024 18:37-0400 Body weight 91.28 kg DO Sonido Ball Work Phone: [facility] 07-03-2024 18:37-0400 Diastolic blood pressure 77 mm[Hg] DO Sonido Ball Work Phone: [facility] 07-03-2024 18:37-0400 Heart rate 78 /min DO Sonido Ball Work Phone: [facility] 07-03-2024 18:37-0400 Respiratory rate 18 /min DO Sonido Ball Work Phone: [facility] 07-03-2024 18:37-0400 SaO2% (BldA) [Mass fraction] 98 % DO Sonido Ball Work Phone: [facility] 07-03-2024 18:37-0400 Systolic blood pressure 122 mm[Hg] DO Sonido Ball Work Phone: [facility] 05-25-2024 10:50-0400 Diastolic blood pressure 83 mm[Hg] DO Sonido Ball Work Phone: [facility] 05-25-2024 10:50-0400 Heart rate 95 /min DO Sonido Ball Work Phone: [facility] 05-25-2024 10:50-0400 Respiratory rate 16 /min DO Sonido Ball Work Phone: [facility] 05-25-2024 10:50-0400 SaO2% (BldA) [Mass fraction] 94 % DO Sonido Ball Work Phone: [facility] 05-25-2024 10:50-0400 Systolic blood pressure 134 mm[Hg] DO Sonido Ball Work Phone: [facility] 05-25-2024 10:05-0400 Body temperature 97.7 [degF] DO Sonido Ball Work Phone: [facility] 05-25-2024 06:00-0400 Body height 1706.88 cm DO Sonido Ball Work Phone: [facility] 05-25-2024 06:00-0400 Body weight 94 kg DO Sonido Ball Work Phone: [facility] 07-19-2023 13:30-0400 Body height 167.64 cm Sonido Ball Other [facility] [employer] Other 07-19-2023 13:30-0400 Body mass index (BMI) [Ratio] 32.36 kg/m2 Sonido Ball Other [facility] [employer] Other 07-19-2023 13:30-0400 Body weight 90.95 kg Sonido Ball Other [facility] Other 07-19-2023 13:30-0400 Diastolic blood pressure 73 mm[Hg] Sonido Ball Other [employer] [place] [employer] Other 07-19-2023 13:30-0400 Respiratory rate 12 /min Sonido Ball Other [facility] Other 07-19-2023 13:30-0400 Systolic blood pressure 112 mm[Hg] Sonido Ball Other [facility] Other 01-11-2023 14:30-0400 Body height 167.64 cm Sonido Ball Other [facility] Other 01-11-2023 14:30-0400 Body mass index (BMI) [Ratio] 33.76 kg/m2 Sonido Ball Other [facility] Other 01-11-2023 14:30-0400 Body weight 94.89 kg Sonido Ball Other [facility] Other 01-11-2023 14:30-0400 Diastolic blood pressure 78 mm[Hg] Sonido Ball Other [facility] Other 01-11-2023 14:30-0400 Respiratory rate 16 /min Sonido Ball Other [facility] Other 01-11-2023 14:30-0400 Systolic blood pressure 126 mm[Hg] Sonido Ball Other [facility] Other 09-28-2022 13:15-0500 Body height 167.64 cm Sonido Ball Other [facility] Other 09-28-2022 13:15-0500 Body mass index (BMI) [Ratio] 33.57 kg/m2 Sonido Ball Other [facility] Other 09-28-2022 13:15-0500 Body weight 94.35 kg Sonido Ball Other [facility] Other 07-08-2021 09:30-0400 Body height 167.64 cm Irma Mc Other [facility] Other Encounters Encounter Date Encounter Type Care Provider Facility Start: 08-22-2024 End: 08-22-2024 Bamboo flowsheet Teo Rivera MD Work Phone: [facility] Start: 08-22-2024 End: 08-22-2024 Bamboo flowsheet Teo Rivera MD Work Phone: [facility] Start: 08-22-2024 End: 08-22-2024 Patient encounter procedure Teo Rivera MD Work Phone: [facility] Work Phone: Start: 08-22-2024 End: 08-22-2024 Periodic preventive med est patient 65yrs& older Teo Rivera MD Work Phone: [facility] Comment on above: Well woman exam with routine gynecological exam (Primary Dx); Other screening mammogram Start: 08-22-2024 End: 08-22-2024 ambulatory TEO RIVERA Not Available Start: 08-02-2024 End: 08-02-2024 ambulatory Sonido Ball DO Work Phone: [facility] Work Phone: Start: 08-02-2024 End: 08-02-2024 Patient encounter procedure Sonido Ball DO Work Phone: [facility] Work Phone: Start: 07-24-2024 Patient encounter status Mor min Ball DO Work Phone: [facility] Start: 07-24-2024 End: 07-24-2024 Encounter for general adult medical examination without abnormal findings Sonido Ball DO Work Phone: [facility] Start: 07-24-2024 End: 07-24-2024 Patient encounter procedure Sonido Ball DO Work Phone: [facility] Work Phone: Start: 07-21-2024 Non-patient / Non-visit Benjam in Ball DO Work Phone: [facility] Work Phone: Start: 07-10-2024 ambulatory [facility] Start: 07-03-2024 End: 07-03-2024 ambulatory DO Sonido Ball Work Phone: [facility] Work Phone: Start: 07-03-2024 End: 07-03-2024 Patient encounter procedure DO Sonido Ball Work Phone: [facility] Work Phone: Start: 06-30-2024 End: 06-30-2024 ambulatory DO Sonido Ball Work Phone: [facility] Work Phone: Start: 06-30-2024 End: 06-30-2024 Patient encounter procedure DO Sonido Ball Work Phone: [facility] Work Phone: Start: 06-15-2024 Non-patient / Non-visit DO Vishal roni Ball Work Phone: [facility] Work Phone: Start: 06-15-2024 End: 06-15-2024 ambulatory Sonido Ball Facility:[facility] Start: 06-12-2024 End: 06-12-2024 ambulatory DO Sonido Ball Work Phone: [facility] Work Phone: Start: 06-12-2024 End: 06-12-2024 Patient encounter procedure DO Sonido Ball Work Phone: [facility] Work Phone: Start: 05-31-2024 End: 05-31-2024 Patient encounter procedure DO Sonido Ball Work Phone: [facility] Work Phone: Start: 05-31-2024 End: 05-31-2024 ambulatory DO Sonido Ball Work Phone: [facility] Work Phone: Start: 05-25-2024 Non-patient / Non-visit DO Vishal roni Ball Work Phone: [facility] Work Phone: Start: 05-25-2024 End: 05-25-2024 Admission to same day surgery center DO Sonido Ball Work Phone: [facility] [place] Start: 05-25-2024 End: 05-25-2024 ambulatory DO Sonido Ball Work Phone: [facility] Work Phone: Start: 05-17-2024 End: 05-17-2024 ambulatory DO Sonido Ball Work Phone: [facility] Work Phone: Start: 05-17-2024 End: 05-17-2024 Patient encounter procedure DO Sonido Ball Work Phone: [facility] Work Phone: Start: 05-11-2024 End: 05-11-2024 Patient encounter procedure DO Sonido Ball Work Phone: [facility] Work Phone: Start: 05-11-2024 End: 05-11-2024 ambulatory DO Sonido Ball Work Phone: [facility] Work Phone: Start: 05-11-2024 Encounter for preprocedural laboratory examination Irma Mc [facility] Start: 04-10-2024 Non-patient / Non-visit DO Vishal roni Ball Work Phone: [facility] Work Phone: Start: 12-08-2023 End: 12-08-2023 ambulatory DO Sonido Ball Work Phone: [facility] Work Phone: Start: 12-08-2023 End: 12-08-2023 Patient encounter procedure DO Sonido Ball Work Phone: [facility] Work Phone: Start: 10-11-2023 End: 10-11-2023 ambulatory Sonido Ball Other [facility] Other Start: 10-11-2023 Telephone encounter Sonido Ball [facility] Start: 10-09-2023 End: 10-09-2023 ambulatory Sonido Ball Other [facility] Other Start: 10-09-2023 Telephone encounter Sonido Ball [facility] Start: 10-09-2023 Patient encounter procedure DO Sonido Ball Work Phone: [facility]- Start: 09-10-2023 End: 09-10-2023 ambulatory Sonido Ball Other [facility] Other Start: 09-10-2023 Office outpatient vi sit 15 minutes Sonido Ball [facility] Start: 07-19-2023 End: 07-19-2023 ambulatory Sonido Ball Other [facility] Other Start: 07-19-2023 Encounter for genera l adult medical examination without abnormal findings Sonido Ball [facility] Start: 07-19-2023 Periodic preventive med est patient 40-64yrs Sonido Ball [facility] Start: 06-28-2023 End: 06-28-2023 ambulatory Sonido Ball Other [facility] Other Start: 06-28-2023 Telephone encounter Sonido Ball [facility] Start: 05-28-2023 End: 05-28-2023 ambulatory Sonido Ball Other [facility] Other Start: 05-28-2023 Telephone encounter Sonido Ball [facility] Start: 05-26-2023 End: 05-26-2023 ambulatory DO Sonido Ball Work Phone: [facility] Work Phone: Start: 05-26-2023 End: 05-26-2023 Patient encounter procedure DO Sonido Ball Work Phone: [facility] Work Phone: Start: 03-01-2023 End: 03-01-2023 ambulatory Sonido Ball Other [facility] Other Start: 03-01-2023 Telephone encounter Sonido Ball [facility] Start: 01-25-2023 End: 01-25-2023 ambulatory Sonido Ball Other [facility] Other Start: 01-25-2023 Telephone encounter Sonido Ball [facility] Start: 01-11-2023 End: 01-11-2023 ambulatory Sonido Ball Other [facility] Other Start: 01-11-2023 Office outpatient vi sit 15 minutes Sonido Ball [facility] Start: 01-08-2023 Office outpatient vi sit 15 minutes [facility] Start: 01-08-2023 End: 01-08-2023 ambulatory DO Sonido Ball Work Phone: [facility] Work Phone: Start: 01-08-2023 End: 01-08-2023 Patient encounter procedure DO Sonido Ball Work Phone: [facility] Start: 12-28-2022 End: 12-28-2022 ambulatory Sonido Ball Other [facility] Other Start: 12-28-2022 Telephone encounter Sonido Ball [facility] Start: 11-02-2022 End: 11-02-2022 ambulatory Sonido Ball Other [facility] Other Start: 11-02-2022 Telephone encounter Sonido Ball [facility] Start: 10-09-2022 End: 10-09-2022 ambulatory Sonido Chaudhari Other [facility] Other Start: 10-09-2022 Telephone encounter Sonido Chaudhari [facility] Start: 09-28-2022 ([facility]) [facility] Sched[facility] Sonido Chaudhari [facility] Start: 09-28-2022 End: 09-28-2022 ambulatory Sonido Chaudhari Other [facility] Other Start: 07-10-2022 Adult health examination Mor Chaudhari Other [facility] Other Start: 05-15-2022 End: 05-15-2022 Patient encounter procedure DO Sonido Chaudhari Work Phone: [facility] Start: 09-04-2021 End: 09-05-[address] SONIDO CHAUDHARI Facility:[facility] Start: 07-08-2021 Office outpatient vi sit 15 minutes Irma Mc [facility] Start: 11-29-2020 End: 11-30-[address] JOSHI LISTED REQUEST Facility:[facility] Procedures Date Procedure Procedure Detail Performing Clinician Start: 08-02-2024 Plain X-ray of right hand Sonido Chaudhari DO Work Phone: Start: 06-30-2024 Plain X-ray of right hand DO Sonido Ball Work Phone: Start: 05-31-2024 Screening mammograph y of bilateral breasts DO Sonido Ball Work Phone: Start: 05-25-2024 Wrist reconstruction DO Sonido Ball Work Phone: Start: 05-25-2024 Decompression of med patrica nerve DO Sonido Ball Work Phone: Start: 05-25-2024 Plain X-ray of right thumb DO Sonido Ball Work Phone: Start: 12-08-2023 Plain X-ray of right hand DO Sonido Ball Work Phone: Start: 08-17-2023 Microscopic observat ion [Identifier] in Cervix by Cyto stain Teo Rivera MD Work Phone: Start: 05-26-2023 End: 05-26-2023 Screening mammography of bilateral breasts DO Sonido Chaudhari [employer] Phone: Start: 01-08-2023 Plain X-ray of right hand DO Sonido Chaudhari [employer] Phone: Start: 05-15-2022 Screening mammograph y of bilateral breasts DO Sonido Chaudhari [employer] Phone: Start: 07-22-2018 Screening for malign ant neoplasm of colon Sonido Chaudhari Other Start: 11-12-2015 General examination of patient Sonido Chaudhari Other Depression screening Sapna Chaudhari Other Depression screening Sapna Chaudhari Other Plan of Treatment Date Care Activity Detail Author Start: 08-17-2026 Screening for malign ant neoplasm of cervix [facility] Start: 08-22-2024 End: 11-20-2025 DBT Breast - bilateral screening Bilateral screening mammogram with tomosynthesis Imaging Routine Other screening mammogram Expected: 08/22/2024 (Approximate), Expires: 11/20/2025 [facility] Work Phone: Comment on above: Expected: 08/22/2024 (Approximate), Expires: 11/20/2025 Start: 08-22-2024 End: 08-22-2024 Patient encounter procedure 08/22/2024 11:30 AM EST Office Visit [facility] [address] [place] [address] Teo Rivera MD [address] [place] [address] Well woman exam with routine gynecological exam; Other screening mammogram [facility] Comment on above: Well woman exam with routine gynecological exam; Other screening mammogram Start: 08-02-2024 Plain X-ray of right hand XR hand RT min 3V* [facility] Start: 08-02-2024 XR Hand - right GE 3 Views [facility] Start: 2024 Pneumococcal Vaccine : 65+ Years (1 of 1 - PCV) Pneumococcal Vaccine: 65+ Years (1 of 1 - PCV) [facility] Start: 06-30-2024 Plain X-ray of right hand XR hand RT min 3V* [facility] Start: 06-30-2024 XR Hand - right GE 3 Views [facility] Start: 05-26-2024 Screening for malign ant neoplasm of breast Mammogram [facility] Start: 05-25-2024 [facility] Start: 05-25-2024 [facility] Start: 05-25-2024 Plain X-ray of right thumb XR finger RT thumb [facility] Start: 05-25-2024 XR Thumb - right Views [facility] Start: 05-21-2024 Influenza vaccination Influenza Vacc ine (#1) [facility] Start: 12-08-2023 Plain X-ray of right hand XR hand RT min 3V* [facility] Start: 12-08-2023 XR Hand - right GE 3 Views [facility] Start: 1989 Screening for malign ant neoplasm of cervix HPV/Cotest [facility] Start: 1960 Screening for malign ant neoplasm of colon [facility] Patient Education Know your Meds [facility] Work Phone: Patient referral [facility] Work Phone: [place] Immunizations Immunization Date Immunization Notes Care Provider Fa cility 06-15-2024 influenza virus vaccine, unspecified formulation Teo Rivera MD Work Phone: [facility] 06-26-2022 influenza, injectabl e, quadrivalent, preservative free Teo Rivera MD Work Phone: [facility] 08-26-2021 COVID-19 mRNA-1273 (Moderna) DO Sonido Chaudhari Work Phone: [facility] 06-04-2021 influenza, injectabl e, quadrivalent, preservative free Teo Rivera MD Work Phone: [facility] 11-29-2020 COVID-19 Ad26.COV2.S (Marianela) DO Sonido Chaudhari Work Phone: [facility] 06-19-2020 influenza, injectabl e, quadrivalent, preservative free Teo Rivera MD Work Phone: [facility] 07-06-2019 influenza virus vaccine, split virus (incl. purified surface antigen) Sonido Chaudhari Other [facility] Other 07-06-2019 influenza virus vaccine, unspecified formulation DO Sonido Chaudhari Work Phone: [facility] 03-28-2019 Kenalog -40 mg Irma Calve y Other [facility] Other 02-08-2018 Kenalog -40 mg Irma Calve y Other [facility] Other 04-20-2016 diphtheria, tetanus toxoids and acellular pertussis vaccine, unspecified formulation Sonido Chaudhari Other [facility] Payers Date Payer Category Payer Medicare [id number] 2022 Private Health Insurance [employer] [id number] 2022 Private Health Insurance [id number] 1960 Self-pay 1960 Unknown [id number] 1959 Unknown [id number] 1959 Unknown [id number] 1959 Unknown [id number] Unknown [id number] 593 Unknown [id number] 531 Unknown [id number] 531 Unknown [id number] 531 Unknown [id number] 531 Unknown [id number] 531 Unknown [id number] 531 Social History Date Type Detail Facility Unknown if ever smoked [facility] Other Start: 08-17-2023 End: 08-22-2024 Sex Assigned At [facility] Start: 03-06-2021 End: 04-06-2023 Tobacco smoking status NHIS Never smoked tobacco (finding) [facility] Start: 1960 Sex Assigned At Female F [facility] Start: 08-02-2024 End: 08-03-2024 Sex Female (finding) [facility] Start: 04-06-2023 Tobacco use and exposure Smokeless tobacco non-user [facility] Start: 08-10-2024 End: 08-22-2024 Alcoholic beverage intake Current drinker of alcohol (finding) [facility] Start: 08-10-2024 End: 08-22-2024 Alcoholic beverage intake [facility] Start: 04-23-2023 Alcohol Comment Caffeine intak e: >4 cups per day coffee [facility] Start: 1960 Sex assigned at Not on file [facility] How often to you hav e a drink containing alcohol? Monthly or less [facility] How many standard drinks containing alcohol do you have on a typical day? 1 or 2 [facility] How often do you hav e 6 or more drinks on 1 occasion? Less than monthly [facility] Medical Equipment Procedure Code Equipment Code Equipment Origin al Text Equipment Identifier Dates Trapeziectomy Tendon/ligament bone anchor, non-bioabsorbable [id number] FDA Start: 03-06-2021 Trapeziectomy Tendon/ligament bone anchor, non-bioabsorbable ()[id number] FDA Start: 05-25-2024 Goals Date Patient Goal Desired Activity /State Clinical Notes 07-08-2021 to 08-22-2024 Teo Rivera MD - 08/22/2024 11:30 AM EST Note Date & Type Note Facility 08-22-2024 History of Presen t illness Narrative Images from the original note were not included. Teo Rivera MD Obstetrics and Gynecology Patient: Naida Mane, : 1960 (64 y.o.) DOS 08/22/24 Exam Date: 08/22/2024 HPI: She is well. No issues She is retiring from [employer] next month Visit Vitals BP 122/84 Wt 170 lb BMI 28.29 kg/m OB Status Postmenopausal Smoking Status Never BSA 1.88 m OB History Para Term AB Living 3 3 3 0 0 3 SAB IAB Ectopic Multiple Live Births 0 0 0 0 3 # Outcome Date GA Lbr Harley/2nd Weight Sex Type Anes PTL Lv 3 Term 2 Term 1 Term Obstetric Comments Pap: 08/12-Neg MELECIO: HPV Neg Mammo: 05/26/23-Neg ([facility]) Menopausal Medication and Allergies Medication Documentation Review Audit Reviewed by Nirmala Harley MA (Ambulance Mechanic) on 08/22/24 at 1130 Medication Order Taking? Sig Documenting Provider Last Dose Status atorvastatin (Lipitor) 10 MG tablet [id number] No Take 10 mg by mouth in the morning. Historical Provider, Taking Active levothyroxine (Synthroid) 137 MCG tablet [id number] No Take by mouth Daily before meals. Historical Provider, Taking Active lisinopril 5 MG tablet [id number] No Take 5 mg by mouth in the morning. Historical Provider, Taking Active Multiple Vitamins-Minerals (CENTRUM ADULT PO) [id number] No Take by mouth. Historical Provider, Taking Active No Known Allergies Past Medical History: Diagnosis Date Anemia Fibrocystic breast 1999 Mitral valve prolapse Rotator cuff tear 1999 bilateral Thyroid disease (CMS/HCC) Past Surgical History: Procedure Laterality Date BI BREAST CYST ASPIRATION LEFT Left 2009 BREAST BIOPSY 2009 COLPOSCOPY 2019 HAND SURGERY 2020 TUBAL LIGATION Bilateral VAGINAL DELIVERY x3 Physical Exam: Objective Physical Exam Constitutional: Appearance: Normal appearance. Genitourinary: Vulva normal. No vaginal discharge or bleeding. Right Adnexa: not palpable. Left Adnexa: not palpable. No cervical lesion. Uterus is not enlarged or tender. Breasts: Right: Normal. Left: Normal. Pulmonary: Effort: Pulmonary effort is normal. Abdominal: Palpations: Abdomen is soft. Neurological: Mental Status: She is alert. Associated Treatments and Results - ICD-10-CM 1. Well woman exam with routine gynecological exam Z01.419 2. Other screening mammogram Z12.31 Bilateral screening mammogram with tomosynthesis Assessment/Plan Orders Placed This Encounter Procedures Bilateral screening mammogram with tomosynthesis U/S and spot compression if indicated Standing Status: Future Standing Expiration Date: 11/20/2025 Order Specific Question: Reason for exam: Answer: screen documented in this encounter [facility] 07-12-2024 Note [id number] 05-17-2024 Evaluation note Diagnosis Onset Date Resolution Arthritis of carpometacarpal (CMC) joint of right thumb acute April 8:49am Right carpal tunnel syndrome acute May 17 8:49am Pain of right hand deleted May 17, 2024 8:49am Arthritis of carpometacarpal (CMC) joint of right thumb acute May 222023 8:53am Other specified postprocedural states acute June 12, 2024 8:53am Right carpal tunnel syndrome acute June 12, 2024 8:53am Arthritis of carpometacarpal (CMC) joint of right thumb acute June 8:43am Other specified postprocedural states acute June 302023 8:43am Right carpal tunnel syndrome acute June 30 8:43am Local reaction to bee sting noneactive July 03 6:19pm Anemia acute July 24, 2024 10:57am Hypercholesteremia acute Novemb er 2023 10:57am Hypertension acute July 10:57am Hypothyroid acute July 24, 2024 10:57am Obesity acute July 24, 2024 10:57am Primary insomnia acute July 24, 2024 10:57am Screening mammogram for breast cancer acute July 24 10:57am Wellness examination acute Nove mber 2023 10:57am Arthritis of carpometacarpal (CMC) joint of right thumb acute August 022023 8:38am Other specified postprocedural states acute July 212023 8:38am Right carpal tunnel syndrome acute August 02, 2024 8:38am [facility] Work Phone: [phone]) 381-600512-22-2023 Evaluation note* Encounter Date Diagnosis Assessment Notes Treatment Notes Treatment Clinical Notes Aug, Acute bronchitis due to other specified organisms (ICD-10 - J20.8) Instructed to use Robitussin or Mucinex for cough, saline or Flonase NS for congestion, Tylenol for pain and fever. Aug, Primary hypertension (ICD-10 - I10) This patient is instructed to consume a healthy, low-fat, low-salt diet. They are also encouraged to continue exercise to achieve/maintain a normal BMI. Avoid Sudafed in cold medication [facility] Other 10-30-2023 Evaluation note* Encounter Date Diagnosis [...] patient on monthly SBE and yearly mammograms. 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) Cool compresses, Benadryl at [facility] Other 04-21-2023 Evaluation note* Encounter Date Diagnosis [...] Dec, Right hand pain (ICD-10 - M79.641) [facility] Other 02-13-2023 Evaluation note* Encounter Date Diagnosis Assessment Notes Treatment Notes Treatment Clinical Notes Oct, Obesity (ICD-10 - E66.9) [facility] Other 01-20-2023 Evaluation note* Encounter Date Diagnosis Assessment Notes Treatment Notes Treatment Clinical Notes Sep, Essential hypertension (ICD-10 - I10) [facility] 01-09-2023 Evaluation note* Encounter Date Diagnosis [...] mode of action, side effects w/ patient [facility] Other 10-19-2021 Evaluation note* Encounter Date Diagnosis [...] Other specified postprocedural states (ICD-10 - Z98.890) [facility] Other Evaluation noteNo assessment information available [facility] Work Phone: Evaluation noteNo InformationN[email or web address] Other Evaluation note* Diagnosis Onset Date Resolution Status Arthritis of carpometacarpal (CMC) joint of right thum b acute Pain of right hand acute Right carpal tunnel syndrome acute [facility] Work Phone: Evaluation note* Diagnosis Onset Date Resolution Status Arthritis of carpometacarpal (CMC) joint of right thum b acute Pain of right hand acute Right carpal tunnel syndrome acute Arthritis of carpometacarpal (CMC) joint of right thum b acute Other specified postprocedural states acute Right carpal tunnel syndrome acute [facility] Work Phone: Evaluation note* Diagnosis Onset Date Resolution Status Arthritis of carpometacarpal (CMC) joint of right thum b acute Pain of right hand acute Right carpal tunnel syndrome acute Arthritis of carpometacarpal (CMC) joint of right thum b acute Other specified postprocedural states acute Right carpal tunnel syndrome acute Arthritis of carpometacarpal (CMC) joint of right thum b acute Other specified postprocedural states acute Right carpal tunnel syndrome acute [facility] Work Phone: Evaluation note* Diagnosis Well woman exam with routine gynecological exam- Primary Routine gynecological examination Other screening mammogram [facility] - [facility]* Type Description Date Medical History HBP Medical History Hypothyroidism Medical History hypertension Surgical History tubal ligation Surgical History right shoulder repair Hospitalization History as above [facility] Other History general Narrative - Reported* Type [...] Surgical History COLONOSCOPY Hospitalization History as above [facility] Other History general Narrative - Reported* Type [...] Surgical History COLONOSCOPY Hospitalization History as above [facility] Other History general Narrative - Reported* Type [...] History COLONOSCOPY 2018 Hospitalization History as above [facility] Other Hospital Discharge instructions Additional Instructions DR. MC'S POST OP INSTRUCTIONS Take prescribed pain medication as directed and as needed to control your post- operative pain. -In addition to the prescribed medication, you may take ibuprofen (Advil, Motrin) or naproxen (Aleve/Naprosyn) to help control pain and decrease swelling. -DO NOT TAKE ibuprofen/Naprosyn/naproxen if you have a history of bleeding ulcer, are taking anticoagulation medication (Coumadin/warfarin, Eliquis, Xarelto, Plavix, Lovenox), if you have had a history of gastric bypass surgery, or if you have a history of kidney disease. Elevate the operative area as much as possible, using at least 2-3 pillows, keeping the hand higher than the elbow. Keep ice at the operative area as much as possible. It takes longer than 20 minutes for the cold to penetrate the bandages, so leave the ice bag or cold pack in place until the ice melts, then it is time to change to a fresh ice bag or cold pack. -Elevation and ice help to lessen the swelling post-operatively which helps to lessen pain so that you will need to take less pain medication, as well as maintaining better range of motion and function of your hand (more swelling, less movement). You may wiggle your fingers, bending, flexing, and move them to decrease stiffness. You may use your hands for light activities of 2-5 lbs. This is lifting your coffee cup, using your silverware, and typing on a computer or tablet. -Do NOT perform strenuous lifting or lift greater than 10 lbs until directed by your surgeon at follow-up DO NOT REMOVE your bandage; it will be removed and changed at our first office appointment in one week - Keep the bandage covered with a plastic bag or cast cover in the shower - You may loosen the bandage if too tight DO NOT REMOVE your splint; leave your splint in place until your office appointment in one week - Keep your splint covered with a plastic bag or cast cover in the shower - You may loosen the splint if too tight Take antibiotics as directed to decrease risk of infection after surgery [facility] Work Phone: Summary Purpose Family History No Family History [...] Unknown Unknown Not Specified Malignant neoplasm Unknown Relationship Condition Age at Onset Recorded Date/T jesse mother Malignant neoplasm of lung Unknown Unknown father Alcohol abuse Unknown Congestive heart failure Unknown Hypertension Unknown Cerebrovascular accident (CVA) Unknown brother Malignant melanoma Unknown Advance Directives No Advanced Directives Records Found Advance Directive Response Recorded Date/ Time Advance Directives No February 11 5:40pm Advance Directive Response Recorded Date/ Time Advance Directives No February 11 4:40pm Chief Complaint and Reason for Visit Chief Complaint Z12.31 Chief Complaint OP/SP RIGHT HAND IRON N WANTS TO DISCUSS SURGERY M18.10 - Unilateral primary osteoarthritis of firs Reason for Visit Arthritis of carpome tacarpal (CMC) joint of right thumb Pain of right hand Right carpal tunnel syndrome Chief Complaint Right Hand Pain, Car pal Tunnel Chief Complaint Right Hand Pain, Car pal Tunnel H&P right thumb trapeziectomy LRTI/RCTR Reason for Visit Arthritis of carpome tacarpal (CMC) joint of right thumb Pain of right hand Right carpal tunnel syndrome Chief Complaint Right Hand Pain, Car pal Tunnel H&P right thumb trapeziectomy LRTI/RCTR Right Hand Pain, Carpal Tunnel Reason for Visit Arthritis of carpome tacarpal (CMC) joint of right thumb Pain of right hand Right carpal tunnel syndrome Chief Complaint Right Hand Pain, Car pal Tunnel H&P right thumb trapeziectomy LRTI/RCTR Right Hand Pain, Carpal Tunnel Right Hand Pain, Carpal Tunnel Z12.31 Reason for Visit Arthritis of carpome tacarpal (CMC) joint of right thumb Pain of right hand Right carpal tunnel syndrome Chief Complaint Right Hand Pain, Car pal Tunnel H&P right thumb trapeziectomy LRTI/RCTR Right Hand Pain, Carpal Tunnel Right Hand Pain, Carpal Tunnel Z12.31 2 WK POST OP Reason for Visit Arthritis of carpome tacarpal (CMC) joint of right thumb Pain of right hand Right carpal tunnel syndrome Arthritis of carpometacarpal (CMC) joint of right thumb Other specified postprocedural states Right carpal tunnel syndrome Chief Complaint Right Hand Pain, Car pal Tunnel H&P right thumb trapeziectomy LRTI/RCTR Right Hand Pain, Carpal Tunnel Right Hand Pain, Carpal Tunnel Z12.31 2 WK POST OP 3 WEEKS XR OUT OF CAST Reason for Visit Arthritis of carpome tacarpal (CMC) joint of right thumb Pain of right hand Right carpal tunnel syndrome Arthritis of carpometacarpal (CMC) joint of right thumb Other specified postprocedural states Right carpal tunnel syndrome Arthritis of carpometacarpal (CMC) joint of right thumb Other specified postprocedural states Right carpal tunnel syndrome Chief Complaint Right Hand Pain, Car pal Tunnel H&P right thumb trapeziectomy LRTI/RCTR Right Hand Pain, Carpal Tunnel Right Hand Pain, Carpal Tunnel Z12.31 2 WK POST OP 3 WEEKS M18.11 G56.01 Reason for Visit Arthritis of carpome tacarpal (CMC) joint of right thumb Pain of right hand Right carpal tunnel syndrome Arthritis of carpometacarpal (CMC) joint of right thumb Other specified postprocedural states Right carpal tunnel syndrome Arthritis of carpometacarpal (CMC) joint of right thumb Other specified postprocedural states Right carpal tunnel syndrome Chief Complaint Right Hand Pain, Car pal Tunnel H&P right thumb trapeziectomy LRTI/RCTR Right Hand Pain, Carpal Tunnel Right Hand Pain, Carpal Tunnel Z12.31 2 WK POST OP 3 WEEKS M18.11 G56.01 yellow jacket sting right hand Reason for Visit Arthritis of carpome tacarpal (CMC) joint of right thumb Pain of right hand Right carpal tunnel syndrome Arthritis of carpometacarpal (CMC) joint of right thumb Other specified postprocedural states Right carpal tunnel syndrome Arthritis of carpometacarpal (CMC) joint of right thumb Other specified postprocedural states Right carpal tunnel syndrome Chief Complaint Admit Date Right Hand Pain, Carpal Tunnel May 112023 8:17am H&P right thumb trapeziectomy LRTI/RCTR May 17, 2024 8:49am Right Hand Pain, Carpal Tunnel May 25, 2024 5:39am Right Hand Pain, Carpal Tunnel May 25, 2024 10:17am Z12.31 May 31, 2024 1:04pm 2 WK POST OP June 12, 2024 8:53am 3 WEEKS June 30, 2024 8 :43am M18.11 G56.01 June 30, 2024 9 :02am yellow jacket sting right hand June 202023 6:19pm CC Adult Risk Stratification July 11:02am Wellness July 24, 2024 1 0:57am 4-5 WEEKS August 02, 2024 8:38am Z98.890 - Other specified postprocedural states August 02, 2024 8:40am Reason for Visit Admit Date Arthritis of carpometacarpal (CMC) joint of right thumb May 17, 2024 8:49am Right carpal tunnel syndrome April 8:49am Pain of right hand May 17, 2024 8: 49am Arthritis of carpometacarpal (CMC) joint of right thumb June 12, 2024 8:53am Other specified postprocedural states Se ptember 2023 8:53am Right carpal tunnel syndrome May 222023 8:53am Arthritis of carpometacarpal (CMC) joint of right thumb June 30, 2024 8:43am Other specified postprocedural states Oc tober 2023 8:43am Right carpal tunnel syndrome June 8:43am Local reaction to bee sting June 6:19pm Anemia July 24, 2024 1 0:57am Hypercholesteremia July 24, 2024 1 0:57am Hypertension July 24, 2024 1 0:57am Hypothyroid July 24, 2024 1 0:57am Obesity July 24, 2024 1 0:57am Primary insomnia July 24, 2024 1 0:57am Screening mammogram for breast cancer No vember 2023 10:57am Wellness examination July 24, 2024 10:57am Arthritis of carpometacarpal (CMC) joint of right thumb August 02, 2024 8:38am Other specified postprocedural states No vember 2023 8:38am Right carpal tunnel syndrome August 022023 8:38am Additional Source Comments INFORMATION SOURCE (unrecogn ized section and content) DATE CREATED AUTHOR 09/10/2021 [facility] DATE CREATED AUTHOR AUTHOR'S ORGANIZ ATION 08/08/2024 [facility] DATE CREATED AUTHOR AUTHOR'S ORGANIZ ATION 08/24/2024 [facility] EPIC DATE CREATED AUTHOR AUTHOR'S ORGANIZ ATION 01/23/2025 [facility] REASON FOR VISIT (unrecogniz ed section and content) Recheck Left Wristcoughing, headache, sinus congestion,No InformationNo InformationMedication ChangerefillRight Hand PainRashrefill?Mammogram resultsrefillwellnessSinuses, Cough, Congestion-Testing for COVID- [phone] InformationLab results Care Teams (unrecognized sec tion and content) Team Status: Active Member Role Status Adalid Chaudhari DO Primary Care Provider Active Team Status: Inactive Member Role Status Adalid Chaudhari DO Primary Care Provider Active Start: May 11, 2024 End: May 11, 2024 Irma Mc MD Attending Provider Active Start: May 11, 2024 End: May 11, 2024 Team Status: Inactive Member Role Status Adalid Chaudhari DO Primary Care Provider Active Start: May 17, 2024 End: May 17, 2024 Irma Mc MD Attending Provider Active Start: May 17, 2024 End: May 17, 2024 Team Status: Inactive Member Role Status Adalid Chaudhari DO Primary Care Provider Active Start: May 25, 2024 End: May 25, 2024 Irma Mc MD Attending Provider Active Start: May 25, 2024 End: May 25, 2024 Team Status: Active Member Role Status Adalid Chaudhari DO Primary Care Provider Active Start: May 25, 2024 Irma Mc MD Attending Provider , Other Provider Active Start: May 25, 2024 Team Status: Inactive Member Role Status Adalid Chaudhari DO Primary Care Provider Active Start: May 31, 2024 End: May 31, 2024 Referral Self Attending Provider Active Start: S aliciateflorina 2023 End: May 31, 2024 Team Status: Inactive Member Role Status Adalid Chaudhari DO Primary Care Provider Active Start: June 12, 2024 End: June 12, 2024 Irma Mc MD Attending Provider Active Start: June 12, 2024 End: June 12, 2024 Team Status: Active Member Role Status Adalid Chaudhari DO Primary Care Provide r, Attending Provider Active Start: June 15, 2024 Team Status: Inactive Member Role Status Adalid Chaudhari DO Primary Care Provider Active Start: June 30, 2024 End: June 30, 2024 Irma Mc MD Attending Provider Active Start: June 30, 2024 End: June 30, 2024 Team Status: Inactive Member Role Status Dates Sonido Ball , DO Primary Care Provider Active Start: July 03, 2024 End: July 03, 2024 Catherine Spain APRN Attending Provider Active Start: July 03, 2024 End: July 03, 2024 Team Status: Active Member Role Status Dates Sonido Chaudhari DO Primary Care Provide r, Attending Provider Active Start: July 21, 2024 Team Status: Inactive Member Role Status Dates Sonido Chaudhari DO Primary Care Provide r, Attending Provider Active Start: July 24, 2024 End: July 24, 2024 Team Status: Inactive Member Role Status Dates Sonido Chaudhari DO Primary Care Provider Active Start: August 02, 2024 End: August 02, 2024 Irma Mc MD Attending Provider Active Start: August 02, 2024 End: August 02, 2024 Team Status: Active Member Role Status Dates Sonido Chaudhari DO Primary Care Provider Active Start: August 02, 2024 Irma Mc MD Attending Provider Active Start: August 02, 2024 Team Status: Active Member Role Status Dates Provider Conversion Attending Provider Active St art: October 09, 2023 Team Status: Inactive Member Role Status Dates Sonido Chaudhari DO Primary Care Provider Active Start: December 08, 2023 End: December 08, 2023 Irma Mc MD Attending Provider Active Start: December 08, 2023 End: December 08, 2023 Team Status: Active Member Role Status Adalid Chaudhari DO Primary Care Provider Active Start: December 08, 2023 Irma Mc MD Attending Provider Active Start: December 08, 2023 Team Status: Inactive Member Role Status Dates Sonido Chaudhari DO Primary Care Provider Active Teo Rivera MD Attending Provider Active Team Status: Inactive Member Role Status Dates Sonido Chaudhari DO Primary Care Provider Active Irma Mc MD Attending Provider Active Team Status: Active Member Role Status Dates Sonido Chaudhari DO Primary Care Provide r, Attending Provider Active Start: April 10, 2024 Team Status: Active Member Role Status Dates Sonido Chaudhari DO Primary Care Provider Active Start: June 30, 2024 Irma Mc MD Attending Provider Active Start: June 30, 2024 Supervisor Pairing And Inspecting Relationship Specialty Start Date End Date Sonido Chaudhari MD [address] [place] [phone] PCP - General Internal Medicine 04/05/23 Supervisor Pairing And Inspecting Relationship Specialty Start Date End Date Sonido Chaudhari MD [address] [place] [id number] PCP - General Internal Medicine 04/05/23 Goals (unrecognized section and content) Goals may [...] BE BASED ON THE PRIMARY CLINICAL RECORDS. [employer] [facility]. provides no warranty or guarantee of the accuracy or completeness of information in this document.
[2025-02-01 09:16] LABS: Basophils Percent Auto 0.2 % (0.2-2.0); Eosinophils Absolute Auto 0.1 10^3/uL (0.0-0.7); Eosinophils Percent Auto 1.6 % (0.9-7.0); Hematocrit 35.5 % (36.0-48.0); Hemoglobin 11.7 g/dL (12.0-16.0); Immature Granulocytes Abs Auto 0.01 10^3/uL (0.00-0.03); Immature Granulocytes Pct Auto 0.1 % (0.0-0.5); Lymphocytes Percent Auto 12.6 % (20.5-60.0); Mean Corpuscular Hemoglobin 31.9 pg (26.7-34.0); Mean Corpuscular Volume 96.7 fL (81.0-99.0); Mean Platelet Volume 9.6 fL (9.5-13.5); Monocytes Absolute Auto 0.6 10^3/uL (0.3-0.8); Monocytes Percent Auto 7.6 % (1.7-12.0); Neutrophils Absolute Auto 6.4 10^3/uL (1.4-6.5); Neutrophils Percent Auto 77.9 % (43.0-75.0); Platelet Count 178 10^3/uL (150-450); Red Blood Count 3.67 10^6/uL (4.20-5.40); Red Cell Distribution Width 13.4 % (11.0-15.0); White Blood Count 8.2 10^3/uL (4.0-11.0)
[2025-02-01 10:24] LABS: Percent Iron Saturation 14.7 %
[2025-02-01 10:54] LABS: Thyroid Stimulating Hormone 2.237 uIU/mL (0.358-3.740)
== END 2025-02-01 08:48 | disposition home or self-care (01) ==
LOC: LAB 08:52
PROVIDERS: PCP Internal Medicine; Visit Provider Internal Medicine
DX: E03.9 Hypothyroidism, unspecified (principal); D64.9 Anemia, unspecified
CPT/HCPCS: 36415; 82728; 83540; 83550; 84443; 85025

== ENCOUNTER 2025-07-19 16:06 | Outpatient (OUT) | payer MEDICARE, OTHER, SELFPAY ==
--- OUTSIDE RECORDS SUMMARY | 2024-05-24 05:15 | XMS_ITS ---
Author Organization [facility] in [place] Address [address] [place] [address] Care Team Providers Care [employer] Name Role Phone None, Unknown or Primary Care Provider Unavailab Alec Reddy Unavailable [phone] REASON FOR VISIT 6 month f/u Encounters Encounter Location Date Provider Diagnosis [facility] (PODIATRY) [address] [place] [address] [place] [address] 05/24/2024 Alec Gifford Plan Of Treatment No Information Progress Notes * Favian MANEOB:1960 (65 yo F)Acc No.[id number]:05/24/2024 UNLOCKED PROGRESS NOTE Follow Up Patient: Naida GURROLA :?Alec Gifford DPM, MSDOB:1960???Age: 63 Y???Sex:FemaleDate:05/24/2024hone:[phone]:[id number] , [place], [id number]:Unknown or None Subjective: * Chief Complaints: * 1 . 6 month f/u. * Medical History: Objective: * Vitals: Assessment: Plan: * Treatment: * * Electronic signature of Alec Gifford DPM on 07/19/2025 at 04:18 PM EDTSign off status: PendingVisit Status:?CANC (Cancelled) * Provider: Prabhjot Gifford DPM, MS Date: 0 05/24/2024 Generated for Printing/Faxing/eTransmitting on:?07/19/2025 04:18 PM EDT
--- OUTSIDE RECORDS SUMMARY | 2025-07-19 16:19 | XMS_ITS | Clinical Summary ---
Author Organization [facility] Address [address] [place] [address] Care Team Providers Care Associate Professor Of Engineering Name Role Phone Sonido Chaudhari DO Primary Care Provider [phone] Allergies No known active allergies Medications MedicationSigDispense QuantityRefillsLast FilledStart DateEnd DateStatus atorvastatin (Lipitor) 10 MG tablet Take 10 mg by mouth in the morning.Active levothyroxine (Synthroid) 137 MCG tablet Take by mouth Daily before meals.Active Multiple Vitamins-Minerals (CENTRUM ADULT PO) Take by mouth.Active lisinopril 5 MG tablet Take 5 mg by mouth in the morning.Active Immunizations ImmunizationAdministration DatesNext DueInfluenza, injectable, quadrivalent, preservative free06/26/2022,06/04/2021,06/19/2020 Family History Medical HistoryRelationNameCommentsDiabetesFatherRonHeart diseaseFatherRon IzxdowrgecypDrlhzuGhhBohexwliIncmGyvwzaDbrccpcsCfuxewa6YsomzkWxuRavmnqqfXyktpj Social History Tobacco UseTypesPacks/DayYears UsedDateSmoking Tobacco: NeverSmokeless Tobacco: Never Tobacco Cessation:Counseling Given: Not Answered Alcohol UseStandard Drinks/WeekCommentsYes3 (1 standard drink = 0.6 oz pure alcohol)Caffeine intake: >4 cups per day coffeeAUDIT-CAnswerDate RecordedQ1: How often do you have a drink containing alcohol?Monthly or less08/22/2024Q2: How many drinks containing alcohol do you have on a typical day when you are drinking?1 or Q3: How often do you have six or more drinks on one occasion?Less than ewcaezr1808/22/2024HQ-2AnswerDate RecordedPatient Health Questionnaire-2 Ervil60510/23/2023CommentsNoSex and Gender Information ValueDate RecordedSex Assigned at BirthNot on fileLegal XnmLaeylr39/15/2023 7:10 PM EDTGender IdentityNot on fileSexual OrientationNot on fileOccupationIndustry Job Start DateJob End DateChild support case managerNot on fileNot on fileNot on file Last Filed Vital Signs Vital SignReadingTime TakenCommentsBlood Sjrcvgog177/8408/22/2024 11:21 AM EST Pulse--Temperature--Respiratory Rate--Oxygen Saturation--Inhaled Oxygen Concentration--Aicztn85.1 kg (170 lb)08/22/2024 11:21 AM UZHWkqwda210.1 cm (5' 5 )04/26/2023 1:55 PM EDTBody Mass Index28.29004/26/2023 1:55 PM EDT Plan of Treatment DateTypeDepartmentCare Team (Latest Contact Info)Fbjydaedlze27/04/2025 11:00 AM ESTOffice Visit [facility]BR[facility] [address] [facility] [address] [place] [phone] Teo George MD [address] [facility] [address] [place] [address] Health MaintenanceDue DateLast DoneCommentsCT Codnhbsxhbwm1959Colonoscopy 1959Colorectal Cancer Kbfvgkchh1959FIT-DNA1959FIT1959 FOBT1960 0382Nriiiofkxpyfc1959Pneumococcal Vaccine: 65+ Years (1 of 1 - PCV)2009Influenza Vaccine (#1)509/, 07/15/2023, 06/26/2022, Additional history zigipvMtjojfjul63/12/202609/08/2025, 05/26/2023, 05/15/2022, Additional history existsCervical Cancer ScreeningDiscontinuedPap HprpcLecnzlpjarlg50/28/2023, 08/02/2020HPV/CotestDiscontinued Procedures Procedure NamePriorityDate/TimeAssociated DiagnosisCommentsBI MAMMOGRAM SCREENING TOMOSYNTHESIS NFWNMXYYMOceygkk50/12/2025 9:11 AM EDT Other screening mammogram THINPREP TIS PAP AND HPV MRNA E6/E7 WITH REFLEX TO HPV 16,18/33Jhqfsgo48/28/2023 1:23 PM EST from Last 3 Months or Most Recently Relevant to Health Maintenance Results * Bilateral screening mammogram with tomosynthesis (06/01/2025 9:11 AM EDT) Anatomical RegionLateralityModalityBreastBilateralMammographySpecimen (Source) Anatomical Location / LateralityCollection Method / VolumeCollection Time Received Time06/01/2025 9:11 AM EDT Impressions 06/01/2025 9:15 AM EDT No mammographic evidence of malignancy. Routine follow-up recommended in one year. ?? RESULT CODE: 2 ? Benign Findings(s) ? DENSITY CODE: 2 (approximately 25-50% glandular) There are scattered areas of fibroglandular density. ? FOLLOW UP: 1YR ? THE FALSE-NEGATIVE RATE OF MAMMOGRAPHY IS APPROXIMATELY 10%. ? IMAGING OF A PALPABLE ABNORMALITY MUST BE BASED ON CLINICAL GROUNDS. ? PATIENT WAS ENTERED INTO A REMINDER SYSTEM WITH A TARGET DUE DATE FOR THE NEXT MAMMOGRAM. ? Impression dictated by: Bal Harley M.D. ??06/01/2025 9:13 AM ? Dictation Location: [facility] ? Dictated By: ?Bal Harley DO ? 06/01/25 0911 ? Signed By: <Electronically signed by Bal Harley, DO in OV> ? 06/01/25 0913 Narrative 06/01/2025 9:15 AM EDT [facility] ?[address] ?[place] [address] ?? [phone] ? Mammography Report ? Signed ? Patient: Dearth,Naida J ?MR#: [id number] ?? 18 ? : 1960 ?Acct:[id number] ? Age/Sex: 64 / F ?Adm Date: 06/01/25 ? Loc: [place] ?Room: ?Type: REG CLI ?? Attending Dr: Teo Martinezy MD ? Ordering Provider: TEO J PRINTY,MD ? Date of Service: 06/01/ ? Procedure(s): MM screening mammo BI w/CAD ?? Accession Number(s): ([id number]) MM/MM screening mammo BI w/CAD: screen ? Copies to: TEO GEORGE MD ?? Sonido Chaudhari,DO ? BILATERAL ??Screening ??Full Field digital mammogram with 3-D imaging. ? Full field digital CC and MLO imaging performed. ??CAD utilized. ? COMPARISON: 05/31/2024 ? HISTORY: Annual screening ? BREAST COMPOSITION: Scattered fibroglandular densities of the breast parenchyma identified ? BREAST CALCIFICATIONS: Benign calcifications present. ? VASCULAR CALCIFICATIONS: Present ? ARCHITECTURAL DISTORTION: None ? BREAST NODULE: None ? AXILLARY LYMPH NODES: Normal ? POSTSURGICAL CHANGES: Left biopsy marking clips ? MM/MM screening mammo BI w/CAD ?? Procedure Note Radiology, Radiologist, MD - 06/01/2025 [facility] [place] [address] Mammography Report Signed Patient: Naida Mane JMR#: [id number] [birth year] : 9Acct:[id number] Age/Sex: 64 / FAdm Date: 06/01/25 Loc: [place] Room:Type: [facility] Attending Dr: Teo George MD Ordering Provider: TEO GEORGE MD Date of Service: 06/01/25 Procedure(s): MM screening mammo BI w/CAD Accession Number(s): ([id number]) MM/MM screening mammo BI w/CAD: screen Copies to: MD Sonido BELLAMY DO BILATERAL Screening Full Field digital mammogram with 3-D imaging. Full field digital CC and MLO imaging performed. CAD utilized. COMPARISON: 05/31/2024 HISTORY: Annual screening BREAST COMPOSITION: Scattered fibroglandular densities of the breastparenchyma identified BREAST CALCIFICATIONS: Benign calcifications present. VASCULAR CALCIFICATIONS: Present ARCHITECTURAL DISTORTION: None BREAST NODULE: None AXILLARY LYMPH NODES: Normal POSTSURGICAL CHANGES: Left biopsy marking clips MM/MM screening mammo BI w/CAD IMPRESSION: No mammographic evidence of malignancy. Routine follow-up recommended inone year. RESULT CODE: 2 Benign Findings(s) DENSITY CODE: 2 (approximately 25-50% glandular) There are scattered areasof fibroglandular density. FOLLOW UP: 1YR THE FALSE-NEGATIVE RATE OF MAMMOGRAPHY IS APPROXIMATELY 10%. IMAGING OF A PALPABLE ABNORMALITY MUST BE BASED ON CLINICAL GROUNDS. PATIENT WAS ENTERED INTO A REMINDER SYSTEM WITH A TARGET DUE DATE FOR THENEXT MAMMOGRAM. Impression dictated by: Bal Harley M.D. 06/01/2025 9:13 AM Dictation Location: [facility] Dictated By: Bal Harley DO 06/01/25 09 Signed By: <Electronically signed by Bal Harley DO in OV> 06/01/25 0913 Authorizing ProviderResult TypeResult StatusTeo RUFFG BI PROCEDURES Final Result * THINPREP TIS PAP AND HPV MRNA E6/E7 WITH REFLEX TO HPV 16,18/45 (08/17/2023 1:23 PM EST)ComponentValueRef RangeTest MethodAnalysis TimePerformed At Pathologist SignatureCLINICAL INFORMATIONQUESTComment:None givenLMPQUEST Comment:NONE GIVENPREV. PAPQUESTComment:NONE GIVENPREV. BXQUESTComment:NONE GIVENSOURCEQUESTComment:None givenSTATEMENT OF ADEQUACYQUESTComment: SATISFACTORY FOR EVALUATIONINTERPRETATION/RESULTQUESTComment: Cytology Results: Negative for intraepithelial lesion or malignancy. Atrophic pattern; predominantly parabasal cells COMMENTQUESTComment: This Pap test has been evaluated with computer assisted technology. Parabasal cells in smears that lack maturation due to atrophy or other hormonal reasons cannot be differentiated from transformation zone cells. Accordingly, presence or absence of endocervical or transformation zone components cannot be reported in this patient. CYTOTECHNOLOGISTQUESTComment: NNO, CT(ASCP) CT screening location: [facility], [address] [place] [address]. (ALWAYS MESSAGE)QUESTComment: EXPLANATORY NOTE: The Pap is a screening test for cervical cancer. It is not a diagnostic test and is subject to false negative and false positive results. It is most reliable when a satisfactory sample, regularly obtained, is submitted with relevant clinical findings and history, and when the Pap result is evaluated along with historic and current clinical information. HPV MRNA E6/E7Not DetectedNot DetectedQUESTComment: Methodology: Gas Plumber-Mediated Amplification This assay detects E6/E7 viral messenger RNA (mRNA) from 14 high-risk HPV types (16,18,31,33,35,39,45,51,52,56,58,59,66,68). Cervical sources are required for HPV testing. If a vaginal source from a patient who has had a total hysterectomy with removal of cervix was submitted, please contact the testing laboratory for alternative testing options. For additional information, please refer to http://education.YourStreet/faq/JAK196n2 (This link if provided for information/ educational purposes only.) Specimen (Source)Anatomical Location / LateralityCollection Method / Volume Collection TimeReceived Time08/17/2023 1:23 PM EST08/18/2023 3:33 AM EST Narrative Resulting Agency Comment Performing Organization Information ?Site ID: [id number] ?Name: [facility] ?Address: [address] [place] [id number] ?Director: Dale Van MD Authorizing ProviderResult TypeResult StatusTeo George MDLAB CYTOLOGY ORDERABLESFinal ResultPerforming OrganizationAddressCity/State/ZIP CodePhone Number [facility]ST from Last 3 Months or Most Recently Relevant to Health Maintenance Insurance Care Teams Team MemberRelationshipSpecialtyStart DateEnd Date Sonido Chaudhari DO PCP - GeneralInternal Medicine04/05/23
--- OUTSIDE RECORDS SUMMARY | 2025-07-19 16:19 | XMS_ITS | Patient Health Record ---
Author Organization [facility] [place] Address [address] [place] [address] Care Team Providers Care Plaster Patternmaker Name Role Phone None, Unknown or Primary Care Provider Unavailab le Allergies No Known Allergies Reason For Referral No Information Medications Medication SIG (Take, Route, Frequency, Duration) Notes Start Date End Date Status Vitamin D 50 MCG (1999) 1 tablet Orally Once a day ActiveVitamin B 12 100 MCGas directed OrallyActiveMeloxicam 15 MG1 tablet Orally Once a day; Duration: 30 days4ActiveLisinopril 5 MG1 tablet Orally Once a dayActiveLevothyroxine Sodium 137 MCGTAKE 1 TABLET BY MOUTH ONCE DAILY Oral; Duration: 90 DaysActiveAtorvastatin Calcium 20 MG1 tablet Orally Once a day Active Problems Problem Type SNOMED Code ICD Code Onset Dates Problem Status W/U Status Risk Notes Problem Localized, primary o steoarthritis of the ankle and/or foot (181430847) Primary osteoarthritis, left ankle and foot (M19.072) ActiveconfirmedProblemPain in left foot ([id number])Left foot pain (M79.672)Activeconfirmed Plan Of Treatment No Information Insurance Providers Payer Name Payer Address Payer Phone Subscriber Number Group Number Insured Name Patient Relationship to Insured Coverage Start Date Coverage End Date [employer] [address] [place] [phone] [id number] Naida Mnae Self - patient is the insured Medical (General) History Medical History History ICD Code anemia high blood pressurethyroidSurgical History Surgery Date(Month/Year) tubal ligation rotator cuff tear repairthumb surgeryHospitalization History Reason Date(Month/Year) see above
--- OUTSIDE RECORDS SUMMARY | 2025-07-19 16:20 | XMS_ITS | CCD ---
Author Organization [facility] Care Team Providers Care Program Director/Morning Show Host Name Role Phone DR SONIDO CHAUDHARI Consulting Unavailable WATSON, DR LONGORIA Attending Unavailable BALL, DR LONGORIA [...] Self, Referral Attending Provider Unavailable Sonido Chaudhari MD E Primary Care Provider TEO RIVERA Attending Unavailable MD Irma Mc Attending Unavailable MD Irma Mc Admitting Unavailable Sonido Chaudhari Primary Care Unavailable Sonido Chaudhari Primary Care Unavailable Sonido Chaudhari DO Primary Care Provider Sonido Chaudhari DO Attending Provider [phone] Sonido Chaudhari DO Primary Care Provider Sonido Chaudhari DO Attending Provider [phone] Teo Rivera MD Attending Provider Sonido Chaudhari Primary Care Unavailable Irma Mc Attending Unavailable Irma Mc Admitting Unavailable Irma Mc Admitting Unavailable WatsonSonido Primary Care Unavailable Irma Mc Attending Unavailable Sonido Chaudhari Primary Care Unavailable Teo Rivera Attending Unavailable Teo Rivera Admitting Unavailable Allergies Allergy ClassificationReported Allergen(s)Allergy TypeDate of OnsetReaction(s) Facility (2 sources)patient allergy list reviewed by nurse or physiciaPropensity to adverse owlmxklao79-01-0542Rsexkzl:[employer] Other (2 sources)Allergies ReconciledPropensity to adverse reactionsGrover Memorial HospitalLiztic Other (11 sources)ceFAZolin; Translations: [cefazolin]Drug Knrlnio39-80-5630[facility]jCos[facility] (1 source)No Known Medication Allergies; Translations: [No Known Medication Allergies]Propensity to adverse reactions to drug (disorder)[facility] Repository Medications Current Medications MedicationDrug Class(es)DatesSig (Normalized)Sig (Original)0.5 ML semaglutide 0.5 MG/ML Auto-Injector [Wegovy] (8 sources)Start: 39-27-5035lizmrp 0.5 mL by subcutaneous injection every week Wegovy 0.25 MG/0.5ML 0.5 mL Subcutaneous weekly for 30 day(s) Oct, Active0.5 ML tirzepatide 5 MG/ML Auto-Injector [Mounjaro] (8 sources)Start: 07-75-2254ngfjoq 2.5 mg by subcutaneous injection every week Mounjaro 2.5 MG/0.5ML 2.5mg Subcutaneous weekly for 28 days Sep, Active atorvastatin 20 mg oral tablet (20 sources)HMG-CoA Reductase InhibitorStart: 12-08-2023 End: 08-97-2421iwjb 1 tablet by mouth once dailytake 1 tablet by mouth in the morningatorvastatin (Lipitor) 10 MG tablet Take 10 mg by mouth in the morning. Activetake 1 tablet by mouth once dailyAtorvastatin Calcium 20 MG Take 1 tablet by mouth once daily for 30 Activeazithromycin 250 mg oral tablet (7 sources)Macrolide AntimicrobialStart: 08-25-2024 End: 03-92-2168Toavs: 83-96-1326Miazryenqhuz 250 MG as directed Orally daily for 5 days Aug, Activecholecalciferol 0.025 mg oral tablet (17 sources)Vitamin DStart: 90-21-0306beox 1 tablet by mouth once daily escitalopram 10 mg oral tablet (12 sources)Serotonin Reuptake Inhibitortake 1 tablet by mouth every twenty-four hoursEscitalopram Oxalate 10 MG 1 tablet Orally Once a day Activelevothyroxine sodium 0.137 mg oral tablet (20 sources)l-ThyroxineStart: 31-46-6212wdld 1 tablet by mouth once dailyStart: 08-24-2018 End: 53-09-1332kmad 1 tablet by mouth once dailyLevothyroxine 137 mcg tablet Discontinued 137 MCG PO Daily 90 90 December 23, 2023 12:04pm December 15, 2024 7:40amtake 1 tablet by mouth once dailyLevothyroxine Sodium 137 MCG Take 1 tablet by mouth once daily Activelisinopril 5 mg oral tablet (20 sources)Angiotensin Converting Enzyme InhibitorStart: 10-08-2024 End: 19-67-5063clok 1 tablet by mouth once dailyStart: 02-25-2021 End: 69-13-4988yyvx 1 tablet by mouth once dailyLisinopril 5 mg tablet Discontinued 5 MG PO Daily February 25, 2021 12:00am October 08, 2024 10:18am Molnupiravir (2 sources)Start: 35-86-4616rngp 1 capsule by mouth every twelve hoursStart: 75-91-8154lqxh 1 capsule by mouth every twelve hoursMolnupiravir 200 mg capsule Active 800 MG PO Every 12 hours 40 5 April 23, 2025 12:00am Complies with drug therapyMultiple Vitamins-Minerals (CENTRUM ADULT PO) (3 sources)Multiple Vitamins-Minerals (CENTRUM ADULT PO) Take by mouth. Active Multivitamin preparation (13 sources)Start: 35-63-0554nxim 1 tablet by mouth once dailyMultivitamin Active 1 TAB PO Daily August 24, 2018 1:00amMultivitamin Tablet (4 sources)Start: 08-61-7547qspq 1 tablet by mouth once dailyStart: 08-24-2018 take 1 tablet by mouth once dailyMultivitamin Tablet Active 1 TAB PO Daily August 24, 2018 12:00ampredniSONE 20 mg oral tablet (2 sources)Start: 03-49-3977hniryxCIOE 20 MG 1 tablet Orally tid w/ food x 3 days, then bid w/ food x 3 days, then qd w/ food x3 days for 9 Dec, Activetriamcinolone acetonide 0.001 mg/mg topical ointment (20 sources)CorticosteroidStart: 91-21-8822Umgdlvqyplooh Acetonide 0.1 % 1 application Externally Twice a day for 14 days Dec, ActiveStart: 60-19-9199Bvituay -40 mg Mar, 40 mgStart: 68-29-8393Gowkgev -40 mg January, 10 mg{20 (nirmatrelvir 150 MG Oral Tablet) / 10 (ritonavir 100 MG Oral Tablet) } Pack [Paxlovid 5-Day] (7 sources)take 3 tablets by mouth every twelve hoursPaxlovid (300/100) 20 x 150 MG & 10 x 100MG 3 tablets Orally Twice a day for 5 days Active Completed/Discontinued Medications MedicationDrug Class(es)DatesSig (Normalized)Sig (Original)acetaminophen 325 mg / HYDROcodone bitartrate 5 mg oral tablet (20 sources)Opioid AgonistStart: 05-25-2024 End: 62-78-2776gjjq 1 tablet by mouth every four to six hours as needed for pain Hydrocodone-Acetaminophen 5-325 mg tablet Discontinued 1 - 2 TAB PO EVERY 4-6 HOURS as needed for pain 50 June 30, 2024 July 24, 2024 12:59pm Dispense: 50 (Fifty) Diagnosis: M18.11, G56.01Start: 03-06-2021 End: 70-98-7397efaw 1 tablet by mouth every four to six hours as needed for pain Hydrocodone-Acetaminophen 5-325 mg tablet Discontinued 1 - 2 TAB PO EVERY 4-6 HOURS as needed for pain 50 March 06, 2021 December 08, 2023 10:29amalendronic acid 70 mg oral tablet (17 sources)BisphosphonateStart: 08-24-2018 End: 60-03-7551zgak 1 tablet by mouth every weekAlendronate 70 mg tablet Discontinued 70 MG PO every week August 24, 2018 1:00am February 25, 2021 2:10pm amoxicillin 875 mg / clavulanate 125 mg oral tablet (7 sources)Penicillin-class AntibacterialStart: 92-05-4698bvrm 1 tablet by mouth every twelve hoursAmoxicillin-Pot Clavulanate 875-125 MG 1 tablet Orally every 12 hrs for 10 day(s) Feb, Not-Taking/PRNdiclofenac sodium 0.01 mg/mg topical gel (13 sources)Nonsteroidal Anti-inflammatory DrugStart: 12-08-2023 End: 73-18-3641Zaamyakguv Sodium (Voltaren Arthritis Pain) 1 % gel Discontinued 0 TOPICAL .COMPLEX November 12:00am May 11, 2024 9:04am apply 1- 2 grams to affected area topically twice a dayStart: 12-08-2023 End: 60-75-2242Jscbgqzkgq Sodium (Voltaren Arthritis Pain) 1 % gel Discontinued 0 TOPICAL .COMPLEX November 11:00pm May 11, 2024 8:04am apply 1- 2 grams to affected area topically twice a dayStart: 12-08-2023 End: 10-81-8348Xhidvrryut Sodium (Voltaren Arthritis Pain) 1 % gel Discontinued 0 TOPICAL .COMPLEX November 12:00am May 11, 2024 9:04am apply 1- 2 grams to affected area topically twice a dayStart: 16-49-3101Nhaqbeashj Sodium (Voltaren Arthritis Pain) 1 % gel Active 0 TOPICAL .COMPLEX December 08, 2023 12:00am apply 1-2 grams to affected area topically twice a daydoxycycline hyclate 100 mg oral capsule (20 sources)Tetracycline-class DrugStart: 07-03-2024 End: 01-45-3849ocxv 1 capsule by mouth twice dailyDoxycycline Hyclate 100 mg capsule Discontinued 100 MG PO Twice daily 02 04July 03, 2024 12:00am July 24, 2024 1:00pmStart: 05-25-2024 End: 09-83-5699pksz 1 tablet by mouth twice dailyDoxycycline Hyclate 100 mg tablet Discontinued 100 MG PO Twice daily 06 24May 25, 2024 12:00am June 12, 2024 8:56amStart: 52-86-7022nrcr 1 capsule by mouth twice daily Doxycycline Hyclate 100 MG 1 capsule Orally twice daily for 7 days Sep, ActiveStart: 03-06-2021 End: 85-97-9488bzaa 1 tablet by mouth twice dailyDoxycycline Hyclate 100 mg tablet Discontinued 100 MG PO Twice daily 06 24March 06, 2021 12:00am December 08, 2023 10:29amGlucos Sul 6msl-Xlp-Rdhxp-C-Mn (Glucosamine Chondroitin) 550-30-1 mg Capsule (17 sources)Start: 02-25-2021 End: 44-39-6337rvto 1 capsule by mouth once dailyGlucos Sul 0smb-Zdt-Hdbkj-C-Mn (Glucosamine Chondroitin) 550-30-1 mg Capsule Discontinued 1 CAP PO Daily February 24, 2021 11:00pm May 11, 2024 8:04amStart: 02-25-2021 End: 12-52-9515irwm 1 capsule by mouth once dailyGlucos Sul 7cgd-Qlr-Wxqtl-C-Mn (Glucosamine Chondroitin) 550-30-1 mg Capsule Discontinued 1 CAP PO Daily February 25, 2021 12:00am May 11, 2024 9:04amStart: 01-76-9465mlvd 1 capsule by mouth once dailyGlucos Sul 4gop-Ruq-Hasrd-C-Mn (Glucosamine Chondroitin) 550-30-1 mg Capsule Active 1 CAP PO Daily February 25, 2021 12:00am methylPREDNISolone 4 mg oral tablet (5 sources)CorticosteroidStart: 07-03-2024 End: 62-69-8601dncq 1 tablet by mouth onceMethylprednisolone (Medrol (Vinicius)) 4 mg tablets,dose pack Discontinued 0 PO per package directions July 03, 2024 12:00am July 24, 2024 1:00pm PO PER PKG DIR for 6 daysondansetron 4 mg oral tablet (9 sources)Serotonin-3 Receptor AntagonistStart: 05-26-2024 End: 76-36-7624Flaxjiddzca Hcl 4 mg tablet Discontinued 4 MG PO every 6 to 8 hours as needed for Nausea 20 May 26, 2024 12:00am July 24, 2024 1:01pmthiamine 250 mg oral tablet (17 sources)Start: 08-24-2018 End: 90-36-5705rwec 1 tablet by mouth once dailyThiamine Hcl (Vitamin B1) (Vitamin B-1) 250 mg Tablet Discontinued 250 MG PO Daily August 24, 2018 1:00am February 25, 2021 2:10pmzolpidem tartrate 5 mg oral tablet (20 sources)gamma-Aminobutyric Acid-ergic AgonistStart: 02-18-2024 End: 69-76-5473auvx 1 tablet by mouth once daily at bedtime as neededZolpidem 5 mg tablet Discontinued 5 MG PO Daily at bedtime as needed for insomnia May 112:00am October 31, 2024 6:43pmStart: 75-71-1630hhbl 1 tablet by mouth at bedtime as neededZolpidem Tartrate 5 MG 1 tablet at bedtime as needed Orally PRN for 30 days January, Activetake 1 tablet by mouth every twenty- four hoursZolpidem Tartrate 5 MG 1 tablet at bedtime as needed Orally Once a day Active Problems Active Problems Problem ClassificationProblemDateDocumented DateEpisodic/ChronicAcute bronchitis (4 sources)Acute bronchitis due to other specified organisms; Translations: [Acute bronchitis]EpisodicAllergic reactions (18 sources)Inflammatory dermatosis; Translations: [Other specified dermatitis] EpisodicAnxiety disorders (17 sources)Generalized anxiety disorder; Translations: [Generalized anxiety disorder]ChronicChronic obstructive pulmonary disease and bronchiectasis (17 sources)Bronchitis; Translations: [Bronchitis, not specified as acute or chronic]EpisodicDeficiency and other anemia (12 sources)Anemia; Translations: [Anemia, unspecified]46-80-4160Jphzjtuc Deficiency and other anemia (2 sources)Anemia, unspecified; Translations: [Anemia, unspecified]07-24-2024 EpisodicDisorders of lipid metabolism (20 sources)Familial hypercholesterolemia; Translations: [Pure hypercholesterolemia]Onset: 16-65-6663IlqxshsCkevognvnc disorders (8 sources)Esophageal reflux finding; Translations: [Esophageal reflux]Onset: 30-95-2481FnrzujpQctszuhxhk disorders (11 sources)Esophageal disorders; Translations: [Gastroesophageal reflux disease with esophagitis without hemorrhage]Essential hypertension (20 sources)Essential hypertension; Translations: [Essential (primary) hypertension]ChronicImmunizations and screening for infectious disease (2 sources)Vaccination given; Translations: [Encounter for immunization]Episodic Inflammation; infection of eye (except that caused by tuberculosis or sexually transmitteddisease) (2 sources)Acute conjunctivitis; Translations: [Unspecified acute conjunctivitis, unspecified eye]EpisodicJoint disorders and dislocations; trauma-related (2 sources)Chondromalacia of patella; Translations: [Chondromalacia of patella] Onset: 46-78-7737EjjbgpxRasnzbfcph disorders (2 sources)Primary ovarian failure; Translations: [Other primary ovarian failure]Onset: 68-87-8672CdnujrhZybiktzlkjtmk mental health disorders (20 sources)Primary insomnia; Translations: [Primary insomnia]36-60-1170Ehogomm Mycoses (2 sources)Tinea corporis; Translations: [Tinea corporis]EpisodicNonmalignant breast conditions (2 sources)Fibrocystic disease of breast; Translations: [Diffuse cystic mastopathy of unspecified breast]Onset: 63-15-6160IbiuzdpRgcfspkgbgyfiq (20 sources)Osteoarthrosis of the carpometacarpal joint of the thumb; Translations: [Unilateral primary osteoarthritis of first carpometacarpal joint, right hand]Onset: 07-08-2021 Resolved: 89-16-7901MldarzvOglqkbouezhj (15 sources)Primary osteoporosis; Translations: [Age-related osteoporosis without current pathological fracture]ChronicOther connective tissue disease (16 sources)Trigger thumb of right hand; Translations: [Trigger thumb, right thumb]EpisodicOther connective tissue disease (12 sources)Pain in right hand; Translations: [Pain in limb]EpisodicOther connective tissue disease (10 sources)Hand pain; Translations: [Pain in right hand]47-22-3428RwsamfggIscmb nervous system disorders (16 sources)Carpal tunnel syndrome of left wrist; Translations: [Carpal tunnel syndrome, left upper limb]ChronicOther nervous system disorders (20 sources)Carpal tunnel syndrome of right wrist; Translations: [Carpal tunnel syndrome, right upper limb]04-51-5970ZeikbxrSkors nervous system disorders (20 sources)Carpal tunnel syndrome, right upper limb; Translations: [Carpal tunnel syndrome]Onset: 07-08-2021 Resolved: 41-79-7280BrloosnUcbkc nervous system disorders (1 source)Carpal tunnel syndrome, left upper limb; Translations: [Carpal tunnel syndrome, left G56.02]Onset: 07-08-2021 Resolved: 95-31-9982LqinjdpQoumw nervous system disorders (13 sources)Carpal tunnel syndrome; Translations: [Carpal tunnel syndrome, unspecified upper limb]09-16-0124HmzblezTihft nervous system disorders (2 sources)Meralgia paresthetica; Translations: [Meralgia paresthetica]Onset: 52-31-0984TjpydmoQapqh nervous system disorders (13 sources)Pain in limb; Translations: [Other acute postprocedural pain] 47-59-9891TktaeaoaMajna nutritional; endocrine; and metabolic disorders (20 sources)Obesity; Translations: [Obesity, unspecified]10-76-4358EtlxqyrHuevg nutritional; endocrine; and metabolic disorders (5 sources)Obesity, unspecified; Translations: [Obesity, unspecified]Chronic Other nutritional; endocrine; and metabolic disorders (2 sources)Simple obesity ; Translations: [Other obesity due to excess calories] Onset: 58-61-8981IxkxwzgQngjv nutritional; endocrine; and metabolic disorders (4 sources)Body mass index 30+ - obesity; Translations: [Body mass index 30.0- 30.9, adult]Onset: 18-52-7654WgtoildEjfiw nutritional; endocrine; and metabolic disorders (2 sources)Obese class I; Translations: [Body mass index 32.0-32.9, adult]Onset: 83-04-4529HpclzdmKnwxp screening for suspected conditions (not mental disorders or infectious disease) (20 sources)Patient encounter status; Translations: [Encounter for screening for malignant neoplasm of colon]Onset: 618898-33-7891ImqlbujuRwioa upper respiratory infections (8 sources)Acute maxillary sinusitis; Translations: [Acute maxillary sinusitis, unspecified]Onset: 358612-68-4790HsojxmvsNautnzucf by nonmedicinal substances (2 sources)Toxic effect of venom of bees, accidental (unintentional), initial encounter; Translations: [Toxic effect of venom]93-02-7138JpgxhldqRpamtqbt codes; unclassified (8 sources)Postprocedural state finding; Translations: [Other specified postprocedural states]50-69-5657FadhkzvsAihnqqqfikf; intervertebral disc disorders; other back problems (6 sources)Cervical spondylosis without myelopathy; Translations: [Spondylosis without myelopathy or radiculopathy, cervical region]Onset: 13-53-0239Kvyjbvi Syncope (17 sources)Vasovagal syncope; Translations: [Syncope and collapse]Episodic Systemic lupus erythematosus and connective tissue disorders (2 sources)Autoimmune disease; Translations: [Autoimmune disease, not elsewhere classified]Onset: 54-90-6653XwdegusUfyionq disorders (20 sources)Autoimmune thyroiditis; Translations: [Autoimmune thyroiditis]Onset: 33-43-5718YlhbssjTrhkp infection (4 sources)Viral disease; Translations: [Unspecified viral infection, in conditions classified elsewhere and of unspecified site]Onset: 02-14-2019 38-10-3531Htjeqbko Past or Other Problems Problem ClassificationProblemDateDocumented DateEpisodic/ChronicBacterial infection; unspecified site (2 sources)Bacterial infectious disease; Translations: [Bacterial infection, unspecified, in conditions classified elsewhere and of unspecified site]Onset: 88-71-0856GdbudjovYlguq connective tissue disease (1 source)Pain in right finger(s); Translations: [Pain of right thumb M79.644] Onset: 07-08-2021 Resolved: 76-44-4015WptarrkdYhvoi connective tissue disease (2 sources)Pain in left lower limb; Translations: [Pain in left leg]Onset: 68-98-3045KkobtzlqDxzvx non-traumatic joint disorders (1 source)Pain in left wrist; Translations: [Left wrist pain M25.532]Onset: 07-08-2021 Resolved: 08-17-6371UatbdcnjUwjbr non-traumatic joint disorders (1 source)Pain in right wrist; Translations: [Right wrist pain M25.531]Onset: 07-08-2021 Resolved: 64-04-9039YdinvimcQleav nutritional; endocrine; and metabolic disorders (2 sources)Overweight; Translations: [Overweight]Onset: 46-13-1598IrdwjpleUljfw nutritional; endocrine; and metabolic disorders (2 sources)Body mass index 25-29 - overweight; Translations: [Body mass index 29.0-29.9, adult]Onset: 97-71-0618BipxrixeDxlypnoh codes; unclassified (15 sources)Other specified postprocedural states; Translations: [Other postprocedural status]Onset: 07-08-2021 Resolved: 22-09-5988EkmweivxLrmjpnxf codes; unclassified (2 sources)Sleep disorder; Translations: [Persistent disorder of initiating or maintaining sleep]Onset: 55-23-9531FraujwevIczuelk and strains (2 sources)Strain of muscle of left hip; Translations: [Strain of muscle, fascia and tendon of left hip, initial encounter]Onset: 06-32-1617JrjysnioDvzzctxfmuah (2 sources)Long-term current use of drug therapy; Translations: [Long-term (current) use of other medications]Onset: 36-02-7820Mpmgztryyozx (2 sources)Exposure to acute respiratory syndrome coronavirus 2; Translations: [Contact with and (suspected) exposure to COVID-19] Resolved: 91-97-6481Npaev infection (15 sources)Disease caused by 2019-nCoV; Translations: [COVID-19] Results Test NameValueInterpretationReference RangeFacilityMM screening mammo BI w/CADon 00-17-0606XM screening mammo BI w/[facility] [address] [place] [address] Mammography Report Signed Patient: Naida Mane MR#: [id number] 19 : 1960 Acct:[id number] Age/Sex: 64 / F Adm Date: 06/01/25 Loc: [place] Room: Type: [facility] Attending Dr: Teo Rivera MD Ordering Provider: TEO RIVERA MD Date of Service: 06/01/25 Procedure(s): MM screening mammo BI w/CAD Accession Number(s): ([id number]) MM/MM screening mammo BI w/CAD: screen Copies to: MD Sonido BELLAMY DO BILATERAL Screening Full Field digital mammogram with 3-D imaging. Full field digital CC and MLO imaging performed. CAD utilized. COMPARISON: 05/31/2024 HISTORY: Annual screening BREAST COMPOSITION: Scattered fibroglandular densities of the breast parenchyma identified BREAST CALCIFICATIONS: Benign calcifications present. VASCULAR CALCIFICATIONS: Present ARCHITECTURAL DISTORTION: None BREAST NODULE: None AXILLARY LYMPH NODES: Normal POSTSURGICAL CHANGES: Left biopsy marking clips MM/MM screening mammo BI w/CAD IMPRESSION: No mammographic evidence of malignancy. Routine follow-up recommended in one year. RESULT CODE: 2 Benign Findings(s) DENSITY CODE: 2 (approximately 25-50% glandular) There are scattered areas of fibroglandular density. FOLLOW UP: 1YR THE FALSE-NEGATIVE RATE OF MAMMOGRAPHY IS APPROXIMATELY 10%. IMAGING OF A PALPABLE ABNORMALITY MUST BE BASED ON CLINICAL GROUNDS. PATIENT WAS ENTERED INTO A REMINDER SYSTEM WITH A TARGET DUE DATE FOR THE NEXT MAMMOGRAM. Impression dictated by: Bal Harley M.D. 06/01/2025 9:13 AM Dictation Location: [facility] Dictated By: Bal Harley DO 06/01/25910 Signed By: 06/01/25 0913[facility] GroupMammography reportOrdered By: Bal Harley on 65-54-0251Fxiublmfbh imaging [facility] [address] [place] [address] Mammography Report Signed Patient: Naida Mane MR#: [id number] : 1960 Acct:[id number] Age/Sex: 64 / F Adm Date: 5 Loc: [place] Room: Type: [facility] Attending Dr: Teo Rivera MD Ordering Provider: TEO RIVERA MD Date of Service: 06/01/25 Procedure(s): MM screening mammo BI w/CAD Accession Number(s): ([id number]) MM/MM screening mammo BI w/CAD: screen Copies to: MD Sonido BELLAMY DO~ BILATERAL Screening Full Field digital mammogram with 3-D imaging. Full field digital CC and MLO imaging performed. CAD utilized. COMPARISON: 05/31/2024 HISTORY: Annual screening BREAST COMPOSITION: Scattered fibroglandular densities of the breast parenchyma identified BREAST CALCIFICATIONS: Benign calcifications present. VASCULAR CALCIFICATIONS: Present ARCHITECTURAL DISTORTION: None BREAST NODULE: None AXILLARY LYMPH NODES: Normal POSTSURGICAL CHANGES: Left biopsy marking clips MM/MM screening mammo BI w/CAD IMPRESSION: No mammographic evidence of malignancy. Routine follow-up recommended in one year. RESULT CODE: 2 Benign Findings(s) DENSITY CODE: 2 (approximately 25-50% glandular) There are scattered areas of fibroglandular density. FOLLOW UP: 1YR THE FALSE-NEGATIVE RATE OF MAMMOGRAPHY IS APPROXIMATELY 10%. IMAGING OF A PALPABLE ABNORMALITY MUST BE BASED ON CLINICAL GROUNDS. PATIENT WAS ENTERED INTO A REMINDER SYSTEM WITH A TARGET DUE DATE FOR THE NEXT MAMMOGRAM. Impression dictated by: Bal Harley M.D. 06/01/2025 9:13 AM Dictation Location: [facility] Dictated By: Bal Harley DO 06/01/25910 Signed By: 06/01/25 0913 [facility]Bas[facility] Auto (Bld) [#/Vol]on 02-01-2025 Basophils (Bld) [#/Vol]0.0 10 3/uL0.0-0.1[facility] Basophils/100 WBC Auto (Bld)on 68-43-5127Qpsrcfeat/100 WBC (Bld)0.2 %0.2-2.0 [facility] HospitalEosinophils/100 WBC Auto (Bld)on 02-01-2025 Eosinophils/100 WBC (Bld)1.6 %0.9-7.0[facility] Erythrocyte distribution width Auto (RBC) [Ratio]on 20-60-5467Eozgfkpvyhi distribution width (RBC) [Ratio]13.4 %11.0-15.0[facility] Hematocrit Auto (Bld) [Volume fraction]on 13-56-3460Vbkhukqmfa (Bld) [Volume fraction]35.5 %Low36.0-48.0[facility] HospitalHemoglobin [Mass/volume] in Bloodon 34-42-4501Kkipktewem (Bld) [Mass/Vol]11.7 g/dLLow 12.0-16.0[facility] HospitalIron binding capacity [Mass/volume] in Serum or Plasmaon 29-16-2369Ipif binding capacity [Mass/Vol]334.0 ug/dL 250.0-450.0[facility] HospitalIron saturation [Mass Fraction] in Serum or Plasmaon 34-17-8199Qgef saturation [Mass fraction]14.7 %[facility] HospitalLaboratory - Chemistry and Chemistry - challengeon 88-75-3682Tangpdtq [Mass/Vol]141.0 ng/mL8.0-252.0[facility] HospitalIron [Mass/Vol]49.0 ug/dLLow50.0-170.0[facility] HospitalTSH Qn2.237 m[IU]/L0.358-3.740[facility] HospitalLaboratory - Hematology and Cell countson 97-60-0815Eykmhzia granulocytes/100 WBC (Bld)0.1 % 0.0-0.5[facility] HealthcareLeukocytes [#/volume] corrected for nucleated erythrocytes in Blood by Automated counon 56-53-2755PCU corrected for nucl RBC Auto (Bld) [#/Vol]8.2 10 3/uL4.0-11.0[facility] Lymphocytes Auto (Bld) [#/Vol]on 62-47-4440Tpozjgpxipv (Bld) [#/Vol]1.0 10 3/uL Low1.2-3.8[facility] HospitalLymphocytes/100 WBC Auto (Bld)on 14-64-6364Toofncwlgau/100 WBC (Bld)12.6 %Low20.5-60.0[facility] HospitalH Auto (RBC) [Entitic mass]on 83-44-2660PCN (RBC) [Entitic mass]31.9 pg 26.7-34.0[facility] HospitalMCHC Auto (RBC) [Mass/Vol]on 40-98-7017LQZZ (RBC) [Mass/Vol]33.0 g/dL29.9-35.2[facility] HealthcareMCV Auto (RBC) [Entitic vol]on 00-97-1548PNX (RBC) [Entitic vol]96.7 fL 81.0-99.0[facility] HospitalMonocytes Auto (Bld) [#/Vol]on 52-62-6879Wuundtayt (Bld) [#/Vol]0.6 10 3/uL0.3-0.8[facility] HospitalMonocytes/100 WBC Auto (Bld)on 96-67-3172Zssvnrycc/100 WBC (Bld)7.6 % 1.7-12.0[facility] HospitalNeutrophils Auto (Bld) [#/Vol]on 85-36-1807Tvmhzrcqahg (Bld) [#/Vol]6.4 10 3/uL1.4-6.5FUK HealthcareNeutrophils/100 WBC Auto (Bld)on 96-89-5785Mrbuhraezag/100 WBC (Bld)77.9 % High43.0-75.0[facility] HospitalNo Panel Informationon 02-01-2025 Eosinophils # (Auto)0.1 10 3/uL0.0-0.7FUK HealthcareImmature Granulocyte # (Auto)0.01 10 3/uL0.00-0.03[facility] Platelet mean volume Auto (Bld) [Entitic vol]on 62-36-2075Dhrymglb mean volume (Bld) [Entitic vol]9.6 fL9.5-13.5FUK HealthcarePlatelets Auto (Bld) [#/Vol]on 08-62-9519Fsosbrujf (Bld) [#/Vol]178 10 3/qC834-096CwkuxvkktMercy Health Clermont HospitalRBC Auto (Bld) [#/Vol]on 92-34-5043FCU (Bld) [#/Vol]3.67 10 6/uLLow4.20-5.40[facility] HospitalPhysical Therapy Noteon 14-29-4135Pxfroeqe Therapy Note [id number]#1.00[facility] HealthX-ray reportOrdered By: Paula Wiggins on 68-33-6478Eccxk reportMAR[facility] [address] [place] [address] XRay Report Signed Patient: Naida Mane MR#: [id number] : 1960 Acct:[id number] Age/Sex: 64 / F ADM Date: 4 Loc: [facility] Room: Type: [facility] Attending Dr: Irma Mc MD Copies to: [...] Paula Wiggins M.D.08/02/2024 10:10 AM Dictation Location: [place] [address] Transcribed By: [facility] 08/02/24 1010 Dictated By: Paula Wiggins MD 08/02/24 1008 Signed By: 08/02/24 1010 [facility] Work Phone: XR hand RT min 3V*on 75-04-9711PW hand RT min 3V* [facility] [address] [place] [address] XRay Report Signed Patient: Naida Mane MR#: [id number] [birth year] : 1960 Acct:[id number] Age/Sex: 64 / F ADM Date: 08/02/24 Loc: [facility] Room: Type: [facility] Attending Dr: Irma Mc MD Copies to: [...] Paula Wiggins M.D.08/02/2024 10:10 AM Dictation Location: [place] [address] Transcribed By: [facility] 08/02/24 1010 Dictated By: Paula Wiggins MD 08/02/24 1008 Signed By: 08/02/24 1010[facility] Physician GroupCoding Summaryon 07-17-2024 Coding SummaryACADIA HEALTHCAREBase 64 WnqodxeqVLh0hRj+PGhlYWQ+ZM7ZDQHzB44liZYfxE8aZ2PYZApSEvssWXACJJkIYtNtaiAdUB9ncVJl ZXJu [file] Ym9 (more content not included)...[facility] HospitalProvider Orderson 12-51-7352Invzwvaj [id number]#1.00OTGTIFF [facility] CenterConsent Formson 24-48-7513Gsesytu Forms [id number]#1.00OTGTIFFAdena Fayette Medical CenterXR hand RT min 3V*on 72-28-5477OM hand RT min 3V*[facility] [address] [place] [address] XRay Report Signed Patient: Naida Mnae MR#: [id number] [birth year] : 1960 Acct:[id number] Age/Sex: 63 / F ADM Date: 06/30/24 Loc: [facility] Room: Type: [facility] Attending Dr: Irma Mc MD Copies to: [...] Bal Harley M.D.06/30/2024 9:47 AM Dictation Location: [place] [address] Transcribed By: [facility] 06/30/24 0947 Dictated By: Bal Harley DO 06/30/24 0946 Signed By: 06/30/24 0947[facility] Physician [facility] Standardon 43-69-1535rAPB Non AA>60Invalid Interpretation [facility] SystemComment on above:Performed By: #### [id number], 0749653, 3605956, 5828720, [id number], 3373666, [id number] #### [facility] (DEFAULT) [address] [place] [address] 05660gQKS AA>60Invalid Interpretation [facility] Comment on above:Performed By: #### 7470112, 0960776, 1125552, 7361768, [id number], 4333948, [id number] #### [facility] (DEFAULT) [address] [place] [address] 76506Duoyuej [Mass/Vol]4.0 g/dLNormal3.5-5.0[facility] Comment on above:Performed By: #### 0451045, 3582763, 5553399, 0704864, 7217706097, 7785689, [id number] #### [facility] (DEFAULT) [address] [place] [address] 77426Ioa Phos78 IU/CNplvum59-42Kpprnosw HospitalComment on above:Performed By: #### 7262958, 9892749, 6067968, 7644078, 1378951011, 0219786, [id number] #### [facility] (DEFAULT) [address] [place] [address] 66647XOI [Catalytic activity/Vol]29.0 U/UYrhxkr60.0-54.0 [facility] HospitalComment on above:Performed By: #### 7224481, 1745282, 9486983, 5716808, 7344800508, 1802825, 5004982357 #### [facility] (DEFAULT) [address] [place] [address] 05480UTY [Catalytic activity/Vol]22 U/VVorzio36-99Axaipenm HospitalComment on above:Performed By: #### 6153822, 3170626, 2864508, 6280330, 8302817325, 0370506, 6702376659 #### [facility] (DEFAULT) [address] [place] [address] 49279Taok Total1.0 mg/dLNormal0.3-1.2[facility] HospitalComment on above:Performed By: #### 4911525, 4260646, 4322020, 1464515, 2844339702, 8571452, [id number] #### [facility] (DEFAULT) [address] [place] [address] 05493Oqscnsm [Mass/Vol]9.0 mg/dLNormal8.9-10.3[facility] Hospital Comment on above:Performed By: #### 4679038, 0479597, 0560845, 7484304, 4704682358, 3388104, 4151089221 #### [facility] (DEFAULT) [address] [place] [address] 44788Hijymhzq [Moles/Vol]101 mmol/PArlhhp855-349Egcpzqwx HospitalComment on above:Performed By: #### 6373000, 0300951, 9570217, 0197823, 5643711983, 7444294, 7023372807 #### [facility] (DEFAULT) [address] [place] [address] 60823HJ2 [Moles/Vol]27 mmol/IDybbzk17-81Elsuoacj Hospital Comment on above:Performed By: #### 7085763, 6698985, 3926934, 3020051, 2984688630, 2154183, [id number] #### [facility] (DEFAULT) [address] [place] [address] 46980Ojyxyyfijl [Mass/Vol]0.74 mg/dLNormal0.60-1.30[facility] HospitalComment on above:Performed By: #### 5222896, 1130261, 9949173, 7240123, 8646727021, 3383511, 7006210240 #### [facility] (DEFAULT) [address] [place] [address] 80262Zkjafmp [Mass/Vol]95.0 mg/cSUdewfp82.0-118.0[facility] HospitalComment on above:Performed By: #### 1990210, 0383619, 7218726, 3482524, 1766279322, 5005425, 1147166915 #### [facility] (DEFAULT) [address] [place] [address] 27623Vdjugkcjn [Moles/Vol]3.9 mmol/LNormal3.6-5.1MFisher-Titus Medical CenterComment on above:Performed By: #### 5251288, 1213235, 1977471, 9540023, 7931218317, 2938605, 5557610957 #### [facility] (DEFAULT) [address] [place] [address] 02841Ezihowh [Mass/Vol]7.2 g/dLNormal6.5-8.1[facility] Hospital Comment on above:Performed By: #### 2927198, 8351313, 8064189, 8801207, 0444977231, 1528176, 3734772393 #### [facility] (DEFAULT) [address] [place] [address] 09755Ilacox [Moles/Vol]135.0 mmol/GJyp670.0-144.0[facility] HospitalComment on above:Performed By: #### 1299749, 7983615, 5737173, 4089712, 7828156477, 8328686, 6014857875 #### [facility] (DEFAULT) [address] [place] [address] 93343Pilq nitrogen [Mass/Vol]21 mg/dLNormal8-26[facility] HospitalComment on above:Performed By: #### 1228797, 2800622, 4684144, 2476991, 5621237437, 8024926, 1518919632 #### [facility] (DEFAULT) [address] [place] [address] 40401Yesjawb/Globulin [Mass ratio]1.2 {ratio}Low1.4-2.6[facility] HospitalComment on above:Performed By: #### 1571656, 4952696, 2106263, 5197817, 3861777183, 3066992, 2371450618 #### [facility] (DEFAULT) [address] [place] [address] 00881Vuidj gap [Moles/Vol]10.9 mmol/LNormal5.0-19.0[facility] HospitalComment on above:Performed By: #### 0806342, 0191302, 0660111, 5711210, 3050995453, 0613443, 9069320919 #### [facility] (DEFAULT) [address] [place] [address] 50621Hzlioyre (S) [Mass/Vol]3.2 g/dLNormal1.5-4.3[facility] HospitalComment on above:Performed By: #### 1310009, 3947411, 2244912, 9729970, 7929559523, 0970397, 5273347247 #### [facility] (DEFAULT) [address] [place] [address] 31207Akswqgmcxc289 mOsm/LInvalid Interpretation CodeKettering Memorial Hospital HospitalComment on above:Performed By: #### 5657250, 5584589, 4272004, 7208672, 5989146807, 2450794, 7493555512 #### [facility] (DEFAULT) [address] [place] [address] 96546Pykc nitrogen/Creatinine [Mass ratio]28.3 mg/mgHigh 4.6-16.2MFisher-Titus Medical CenterComment on above:Performed By: #### 5730366, 0784735, 7458206, 2172898, 7117447193, 9855029, 0608051388 #### [facility] (DEFAULT) [address] [place] [address] 61557Komevfabcpr in LDL Calc [Mass/Vol]on 25-72-1623Ezeyhlfyqqa in LDL [Mass/Vol]94 mg/dL1-100[facility] HospitalCholesterol in LDL [Mass/Vol]Cholesterol in LDL [Mass/volume] in Serum or Plasma by calculation 1-100[facility] HospitalCholesterol in VLDL Calc [Mass/Vol]on 47-83-9418Phxakwioruw in VLDL [Mass/Vol]31 mg/dL5-40[facility] HospitalCholesterol in VLDL [Mass/Vol]Cholesterol in VLDL [Mass/volume] in Serum or Plasma by calculation5-40[facility] HospitalEstimated glomerular filtration rate (GFR) non- Americanon 63-08-1522IEB/1.73 sq M.predicted among non-blacks MDRD (S/P/Bld) [Vol rate/Area]mL/min/{1.73_m2} [facility] HospitalGFR/1.73 sq M.predicted among non-blacks MDRD (S/P/Bld) [Vol rate/Area]Estimated glomerular filtration rate (GFR) non- AmericanMercy Health Clermont HospitalGGTon 64-50-8067Skglj glutamyl transferase [Catalytic activity/Vol]40.0 U/LNormal7.0-50.0[facility] Comment on above:Performed By: #### 7000783, 0603089, 1428649, 4339280, 1093225935, 4337935, 3569402149 #### [facility] (DEFAULT) [address] [place] [address] 78178Caoblplv Calc (S) [Mass/Vol]on 67-84-4820Kpqxcrpc (S) [Mass/Vol]3.2 g/dL1.5-4.3FUK HealthcareGlobulin (S) [Mass/Vol]Serum globulin measurement by calculation (mass/volume)1.5-4.3 [facility] HospitalIron Levelon 77-22-4492Pkfo [Mass/Vol]117.0 ug/pAYthknw87.0-170.0[facility] HospitalComment on above:Performed By: #### 5474905, 1339345, 5305727, 0807719, 2159845144, 6943837, 8340994584 #### [facility] (DEFAULT) [address] [place] [address] 69395DFNld 69-41-9019FFT181.0 IU/TKpbvqc92.0-192.0[facility] HospitalComment on above:Performed By: #### 7261742, 2478745, 8104468, 8150528, 9385708020, 1159961, 3178330210 #### [facility] (DEFAULT) [address] [place] [address] 79871Dzlqerptuk - Chemistry and Chemistry - challengeon 59-75-2428Yhijalp [Mass/Vol]4.0 g/dL3.5-5.0[facility] HospitalALP [Catalytic activity/Vol]78 U/D11-67OqikpplgeMercy Health Clermont HospitalALT [Catalytic activity/Vol]29.0 U/L14.0-54.0[facility] Amylase [Catalytic activity/Vol]40.0 U/L7.0-50.0[facility] HospitalAST [Catalytic activity/Vol]22 U/K50-08MfivnliknMercy Health Clermont Hospital Bilirubin [Mass/Vol]1.0 mg/dL0.3-1.2FUK HealthcareCalcium [Mass/Vol]9.0 mg/dL8.9-10.3FUK HealthcareChloride [Moles/Vol] 101 mmol/I395-596CgiofgqmlMercy Health Clermont HospitalCholesterol [Mass/Vol]170.0 mg/dL66.0-200.0[facility] HospitalCholesterol in HDL [Mass/Vol]44 mg/dJ54-75UfmjatsrxMercy Health Clermont HospitalCO2 [Moles/Vol]27 mmol/L21-32 [facility] HospitalCreatinine [Mass/Vol]0.74 mg/dL0.60-1.30 [facility] HospitalGFR/1.73 sq M.predicted MDRD (S/P/Bld) [Vol rate/Area]mL/min/{1.73_m2}[facility] HospitalGlucose [Mass/Vol] 95.0 mg/dL74.0-118.0[facility] HospitalIron [Mass/Vol]117.0 ug/dL 28.0-170.0[facility] HospitalLDH [Catalytic activity/Vol]162.0 U/L 98.0-192.0[facility] HospitalPotassium [Moles/Vol]3.9 mmol/L 3.6-5.1FUK HealthcareProtein [Mass/Vol]7.2 g/dL6.5-8.1 [facility] Hospitalodium [Moles/Vol]135.0 mmol/BWgp596.0-144.0 [facility] HospitalTriglyceride [Mass/Vol]157.0 mg/dLHigh0.0-150.0 [facility] HospitalUrate [Mass/Vol]4.2 mg/dL2.6-8.0[facility] HospitalUrea nitrogen [Mass/Vol]21 mg/dL8-26[facility] HospitalUrea nitrogen/Creatinine [Mass ratio]28.3 mg/mgHigh4.6-16.2 [facility] HospitalLipid Panel Standardon 00-07-0527Npvxnjzkfuz [Mass/Vol]170.0 mg/zSGyxvoo90.0-200.0[facility] HospitalComment on above:Performed By: #### 6676392, 2732816, 4299942, 0241494, 6776873719, 5022808, 4732346281 #### [facility] (DEFAULT) [address] [place], [place] [address]Xjersekthxe in HDL [Mass/Vol]44 mg/kSUyxldg31-52Rrulkmaa HospitalComment on above:Performed By: #### 0013732, 9912788, 3583389, 7696664, 1409482112, 5353638, 8013315177 #### [facility] (DEFAULT) [address] [place] [address] 02672Cxfaxldsuvrq [Mass/Vol]157.0 mg/dLHigh0.0-150.0[facility] HospitalComment on above:Performed By: #### 7330681, 3626732, 5151384, 3404783, 8930067541, 1867018, 2295946259 #### [facility] (DEFAULT) [address] [place] [address] 19534Suokqjhuxlp in LDL [Mass/Vol]94 mg/dLNormal1-100[facility] HospitalComment on above:Performed By: #### 4025411, 2572591, 2179746, 9500457, 7741575489, 1947737, 1185373280 #### [facility] (DEFAULT) [address] [place] [address] 08016Abmumszaqso.total/Cholesterol in HDL [Mass ratio]3.8 {ratio}Normal0.0-4.5[facility] HospitalComment on above:Performed By: #### 1222172, 8149357, 0621699, 0811048, 9215074446, 3355085, 6903768860 #### [facility] (DEFAULT) [address] [place] [address] 82809IDYW.31 mg/dLNormal5-40[facility] HospitalComment on above: Performed By: #### 1438671, 8571906, 8706264, 9106914, 6594528396, 6660954, 3779155776 #### [facility] (DEFAULT) [address] [place] [address] 27755Rx Panel Informationon 91-12-0672Fmirwrvcpw907 mOsm/L [facility] HospitalPhosphorus Level3.7 mg/dL2.5-4.6FUK HealthcarePhoson 73-86-0755Mbdgzzmdg [Mass/Vol]3.7 mg/dLNormal 2.5-4.6[facility] HospitalComment on above:Performed By: #### 2181986, 6837863, 2219186, 8245326, 4720254460, 8595574, 4211554448 #### [facility] (DEFAULT) [address] [place] [address] 20953Fscua or plasma albumin/globulin mass ratioon 06-15-2024 Albumin/Globulin [Mass ratio]1.2 {ratio}Low1.4-2.6FUK HealthcareAlbumin/Globulin [Mass ratio]Serum or plasma albumin/globulin mass ratio Low1.4-2.6FCleveland Clinic Children's Hospital for Rehabilitationerum or plasma anion gap determinationon 34-92-9620Dytoi gap [Moles/Vol]10.9 mmol/L5.0-19.0[facility] HospitalAnion gap [Moles/Vol]Serum or plasma anion gap determination5.0-19.0[facility] Hospitalerum or plasma total cholesterol/high density lipoprotein (HDL) cholesterol mass chinedu 06-15-2024 Cholesterol.total/Cholesterol in HDL [Mass ratio]3.8 {ratio}0.0-4.5FUK HealthcareCholesterol.total/Cholesterol in HDL [Mass ratio]Serum or plasma total cholesterol/high density lipoprotein (HDL) cholesterol mass rat 0.0-4.5FUK HealthcareUric Acidon 41-38-5983Rztek [Mass/Vol] 4.2 mg/dLNormal2.6-8.0[facility] HospitalComment on above:Performed By: #### 7479884, 2684894, 0668682, 7798943, 4697203388, 3436278, 3218145067 #### [facility] (DEFAULT) [address] [place] [address] 34618Dgrkulm aminotransferase [Enzymatic activity/volume] in Serum or PlasmaOrdered By: Irma Mc on 66-64-6514VGU [Catalytic activity/Vol]22 U/LMercy Health Clermont HospitalALT [Catalytic activity/Vol]Alanine aminotransferase [Enzymatic activity/volume] in Serum or PlasmaMercy Health Clermont HospitalAlbumin [Mass/volume] in Serum or Plasma by Bromocresol green (BCG) dye binding methoOrdered By: Irma Mc on 57-60-5264Ldvsjku BCG dye [Mass/Vol]4.0 g/dL3.5-5.7FUK HealthcareAlbumin BCG dye [Mass/Vol]Albumin [Mass/volume] in Serum or Plasma by Bromocresol green (BCG) dye binding metho3.5-5.7FUK HealthcareAlkaline phosphatase [Enzymatic activity/volume] in Serum or PlasmaOrdered By: Irma Mc on 41-32-5044EDM [Catalytic activity/Vol]81 U/L34-104 [facility] HospitalALP [Catalytic activity/Vol]Alkaline phosphatase [Enzymatic activity/volume] in Serum or Hdzamr32-030CmwhifuphMercy Health Clermont HospitalAspartate aminotransferase [Enzymatic activity/volume] in Serum or PlasmaOrdered By: Irma Mc on 40-33-5192YXL [Catalytic activity/Vol]16 U/I32-17DqnzsoiikMercy Health Clermont HospitalAST [Catalytic activity/Vol]Aspartate aminotransferase [Enzymatic activity/volume] in Serum or Swscer66-82HorbyovjyMercy Health Clermont HospitalBasophils Auto (Bld) [#/Vol]Ordered By: Irma Mc on 03-95-7661Qgfitcugh (Bld) [#/Vol]0.0 10*3/uL0.0-0.2 [facility] HospitalBasophils (Bld) [#/Vol]Automated basophil count 0.0-0.2FUK HealthcareBasophils/100 WBC Auto (Bld)Ordered By: Irma Mc on 29-64-8753Yrckhsbxc/100 WBC (Bld)0.7 %.[facility] HospitalBasophils/100 WBC (Bld)Automated basophil %.[facility] HospitalBilirubin.total [Mass/volume] in Serum or PlasmaOrdered By: Irma Mc on 38-49-0958Jkywnuvcj [Mass/Vol]0.4 mg/dL0.3-1.0[facility] HospitalBilirubin [Mass/Vol]Bilirubin.total [Mass/volume] in Serum or Plasma0.3-1.0[facility] HospitalCalcium [Mass/volume] in Serum or PlasmaOrdered By: Irma Mc on 86-21-5232Tirvbeg [Mass/Vol]9.2 mg/dL8.6-10.3FUK HealthcareCalcium [Mass/Vol]Calcium [Mass/volume] in Serum or Plasma8.6-10.3FUK HealthcareCarbon dioxide, total [Moles/volume] in Serum or PlasmaOrdered By: Irma Mc on 74-86-7529ML5 [Moles/Vol]26.5 mmol/L21.0-31.0[facility] CO2 [Moles/Vol]Carbon dioxide, total [Moles/volume] in Serum or Docbvl00.0-31.0 [facility] HospitalChloride [Moles/volume] in Serum or Plasma Ordered By: Irma Mc on 19-82-5061Kvgvrzce [Moles/Vol]107 mmol/L98-107 [facility] HospitalChloride [Moles/Vol]Chloride [Moles/volume] in Serum or Uvnbvu31-585KspddsmayMercy Health Clermont HospitalCreatinine [Mass/volume] in Serum or PlasmaOrdered By: Irma Mc on 09-30-8248Mwrilxcqsh [Mass/Vol] 0.74 mg/dL0.60-1.20[facility] HospitalCreatinine [Mass/Vol] Creatinine [Mass/volume] in Serum or Plasma0.60-1.20[facility] HospitalEosinophils Auto (Bld) [#/Vol]Ordered By: Irma Mc on 05-11-2024 Eosinophils (Bld) [#/Vol]0.2 10*3/uL0.0-0.45[facility] Eosinophils (Bld) [#/Vol]Automated eosinophil count0.0-0.45[facility] HospitalEosinophils/100 WBC Auto (Bld)Ordered By: Irma Mc on 00-52-2982Zpqvqvuapgt/100 WBC (Bld)2.9 %.[facility] Eosinophils/100 WBC (Bld)Automated eosinophil %.[facility] HospitalErythrocyte distribution width Auto (RBC) [Ratio]Ordered By: Irma Mc on 67-63-0913Drstdrsviul distribution width (RBC) [Ratio]13.6 %11.9-15.3 [facility] HospitalErythrocyte distribution width (RBC) [Ratio] Erythrocyte distribution width [Ratio] by Automated count11.9-15.3FUK HealthcareGlobulin Calc (S) [Mass/Vol]Ordered By: Irma Mc on 77-10-3712Okhavnqs (S) [Mass/Vol]2.6 g/dLMercy Health Clermont Hospital Globulin (S) [Mass/Vol]Serum globulin measurement by calculation (mass/volume) [facility] HospitalGlucose [Mass/volume] in Serum or PlasmaOrdered By: Irma Mc on 02-57-1349Apdvevj [Mass/Vol]86 mg/tT42-242RmztbsxgbMercy Health Clermont HospitalGlucose [Mass/Vol]Glucose [Mass/volume] in Serum or Nzctkx75-856QfcotzpanMercy Health Clermont HospitalHematocrit Auto (Bld) [Volume fraction]Ordered By: Irma Mc on 29-60-3985Hewnxknhvr (Bld) [Volume fraction]33.9 %Low34.0-46.4FUK HealthcareHematocrit (Bld) [Volume fraction]Hematocrit [Volume Fraction] of Blood by Automated countLow 34.0-46.4FUK HealthcareHemoglobin [Mass/volume] in Blood Ordered By: Irma Mc on 03-19-0759Yqeozrgwnu (Bld) [Mass/Vol]11.7 g/dLLow 11.8-15.4FUK HealthcareHemoglobin (Bld) [Mass/Vol]Hemoglobin [Mass/volume] in DubspXjc04.8-15.4FUK HealthcareLeukocytes [#/volume] corrected for nucleated erythrocytes in Blood by Automated coun Ordered By: Irma Mc on 53-61-7614SWO corrected for nucl RBC Auto (Bld) [#/Vol]5.2 10*3/uL3.8-11.6FUK HealthcareWBC corrected for nucl RBC Auto (Bld) [#/Vol]Leukocytes [#/volume] corrected for nucleated erythrocytes in Blood by Automated coun3.8-11.6[facility] Lymphocytes Auto (Bld) [#/Vol]Ordered By: Irma Mc on 05-11-2024 Lymphocytes (Bld) [#/Vol]1.2 10*3/uL1.00-4.8[facility] Lymphocytes (Bld) [#/Vol]Lymphocytes [#/volume] in Blood by Automated count 1.00-4.8[facility] HospitalLymphocytes/100 WBC Auto (Bld)Ordered By: Irma Mc on 94-41-6946Kzndtixpfsp/100 WBC (Bld)22.3 %.[facility] HospitalLymphocytes/100 WBC (Bld)Lymphocytes/100 leukocytes in Blood by Automated count.[facility] HospitalH Auto (RBC) [Entitic mass]Ordered By: Irma Mc on 62-82-4059RKY (RBC) [Entitic mass] 32.4 pg24.7-34.3FJ.W. Ruby Memorial HospitalH (RBC) [Entitic mass]MCH [Entitic mass] by Automated count24.7-34.3FJ.W. Ruby Memorial HospitalHC Auto (RBC) [Mass/Vol]Ordered By: Irma Mc on 31-46-2269MTEF (RBC) [Mass/Vol]34.7 g/dL32.0-35.0[facility]. [facility] HospitalHC (RBC) [Mass/Vol]MCHC [Mass/volume] by Automated count32.0-35.0[facility] HospitalMCV Auto (RBC) [Entitic vol]Ordered By: Irma Mc on 18-74-1087UPZ (RBC) [Entitic vol]93.4 hB27-002IqfwkmpzlMer[facility] MCV (RBC) [Entitic vol]MCV [Entitic volume] by Automated qiykr62-989ZwhpzmgntMercy Health Clermont HospitalMonocytes Auto (Bld) [#/Vol]Ordered By: Irma Mc on 25-80-8298Vtmmvpobl (Bld) [#/Vol]0.4 10*3/uL0.0-0.8[facility] HospitalMonocytes (Bld) [#/Vol]Automated blood monocyte count0.0-0.8[facility] HospitalMonocytes/100 WBC Auto (Bld)Ordered By: Irma Mc on 91-98-7037Cotsjumpy/100 WBC (Bld)7.2 %.[facility] Monocytes/100 WBC (Bld)Automated monocyte %.[facility] Neutrophils Auto (Bld) [#/Vol]Ordered By: Irma Mc on 05-11-2024 Neutrophils (Bld) [#/Vol]3.5 10*3/uL1.8-7.7[facility] Neutrophils (Bld) [#/Vol]Neutrophils [#/volume] in Blood by Automated count 1.8-7.7[facility] HealthcareNeutrophils/100 WBC Auto (Bld)Ordered By: Irma Mc on 83-62-1707Vrnoyfhipod/100 WBC (Bld)66.9 %.[facility] HospitalNeutrophils/100 WBC (Bld)Automated neutrophil %.[facility] HospitalNo Panel InformationOrdered By: Irma Mc on 93-55-9922Iuzxpvvpw GFR (CKD-EPI)> 60.0 mL/MinMercy Health Clerm[facility] Hospital [facility] Creatinine Clearance (ChemN/AFUK HealthcareNucleated erythrocytes [Presence] in Blood by Automated countOrdered By: Irma Mc on 06-45-7956Kpoesxwsy RBC Auto Ql (Bld)0.1 /100{WBC}0-0.5[facility] HealthcareNucleated RBC Auto Ql (Bld)Nucleated erythrocytes [Presence] in Blood by Automated count0-0.5[facility] HealthcarePlatelet mean volume Auto (Bld) [Entitic vol]Ordered By: Irma Mc on 81-00-7627Motchcdz mean volume (Bld) [Entitic vol]7.7 fL6.3-10.7[facility] Platelet mean volume (Bld) [Entitic vol]Platelet mean volume [Entitic volume] in Blood by Automated count6.3-10.7[facility] HealthcarePlatelets Auto (Bld) [#/Vol]Ordered By: Irma Mc on 70-43-7956Tkdanewgd (Bld) [#/Vol]204 10*3/qO967-622FqjoacfebMercy Health Clermont HospitalPlatelets (Bld) [#/Vol]Platelets [#/volume] in Blood by Automated okfjs209-434OhbljcmbpMercy Health [facility] Hospital Potassium [Moles/volume] in Serum or PlasmaOrdered By: Irma Mc on 27-72-6508Ijtvjymqe [Moles/Vol]4.0 mmol/L3.5-5.1[facility] HealthcarePotassium [Moles/Vol]Potassium [Moles/volume] in Serum or Plasma3.5-5.1 [facility] HospitalProtein [Mass/volume] in Serum or PlasmaOrdered By: Irma Mc on 70-09-7761Mlchyfe [Mass/Vol]6.6 g/dL6.4-8.9[facility] HospitalProtein [Mass/Vol]Protein [Mass/volume] in Serum or Plasma6.4-8.9[facility] HospitalRB Auto (Bld) [#/Vol]Ordered By: Irma Mc on 16-00-4540LXX (Bld) [#/Vol]3.63 10*6/uL3.60-5.00[facility]C (Bld) [#/Vol]Erythrocytes [#/volume] in Blood by Automated count3.60-5.00[facility] Hospitalerum or plasma albumin/globulin mass ratioOrdered By: Irma cM on 05-11-2024 Albumin/Globulin [Mass ratio]1.5 {ratio}[facility] Albumin/Globulin [Mass ratio]Serum or plasma albumin/globulin mass ratio [facility] Hospitalerum or plasma anion gap determinationOrdered By: Irma Mc on 32-94-8227Bglkj gap [Moles/Vol]11.5 mmol/L6.0-15.0 [facility] HospitalAnion gap [Moles/Vol]Serum or plasma anion gap determination6.0-15.0[facility] Hospitalodium [Moles/volume] in Serum or PlasmaOrdered By: Irma Mc on 21-64-9707Cmabbu [Moles/Vol]141 mmol/V844-926VyctcyxrhBarberton Citizens Hospitalodium [Moles/Vol]Sodium [Moles/volume] in Serum or Hvqbzp270-716MmiseagirMercy Health Clermont HospitalUrea nitrogen [Mass/volume] in Serum or PlasmaOrdered By: Irma Mc on 54-21-7321Zvwy nitrogen [Mass/Vol]21 mg/dL7-25[facility] Urea nitrogen [Mass/Vol]Urea nitrogen [Mass/volume] in Serum or Plasma7- [facility] HospitalWBC Auto (Bld) [#/Vol]Ordered By: Irma Mc on 28-89-8528RUW (Bld) [#/Vol]5.2 10*3/uL3.8-11.6F[facility] HealthcareWBC (Bld) [#/Vol]Leukocytes [#/volume] in Blood by Automated count 3.8-11.6[facility] HealthcareBasophils Auto (Bld) [#/Vol]on 76-87-6894Gfsgyhqyh (Bld) [#/Vol]0.0 10 3/uL0.0-0.1F[facility] HealthcareBasophils/100 WBC Auto (Bld)on 65-88-7767Zsgwwtztr/100 WBC (Bld)0.5 % 0.2-2.0[facility] HospitalEosinophils/100 WBC Auto (Bld)on 44-97-0439Gxsnfkicuvh/100 WBC (Bld)2.5 %0.9-7.0[facility] Erythrocyte distribution width Auto (RBC) [Ratio]on 25-18-4548Tmjurwnkwrg distribution width (RBC) [Ratio]13.2 %11.0-15.0[facility] Hematocrit Auto (Bld) [Volume fraction]on 75-03-7938Fpsjxduefg (Bld) [Volume fraction]36.9 %36.0-48.0[facility] HospitalHemoglobin [Mass/volume] in Bloodon 29-25-2431Ylyknvbppn (Bld) [Mass/Vol]12.2 g/dL12.0-16.0 [facility] HospitalIron binding capacity [Mass/volume] in Serum or Plasmaon 77-28-8688Rbby binding capacity [Mass/Vol]369.0 ug/dL250.0-450.0 [facility] HospitalIron saturation [Mass Fraction] in Serum or Plasmaon 78-47-4371Bgkw saturation [Mass fraction]20.6 %[facility] HospitalLaboratory - Chemistry and Chemistry - challengeon 04-10-2024 Cobalamin (Vitamin B12) [Mass/Vol]600.0 pg/mL193.0-986.0[facility] HospitalFerritin [Mass/Vol]139.0 ng/mL8.0-252.0[facility] HospitalIron [Mass/Vol]76.0 ug/dL50.0-170.0[facility] Laboratory - Hematology and Cell countson 57-99-4380Axabsbts granulocytes/100 WBC (Bld)0.3 %0.0-0.5FUK HealthcareLeukocytes [#/volume] corrected for nucleated erythrocytes in Blood by Automated counon 89-83-1542DKD corrected for nucl RBC Auto (Bld) [#/Vol]5.9 10 3/uL4.0-11.0[facility] HospitalLymphocytes Auto (Bld) [#/Vol]on 31-06-8250Xafifmgfwfl (Bld) [#/Vol]1.2 10 3/uL1.2-3.8[facility] HospitalLymphocytes/100 WBC Auto (Bld)on 13-71-9914Zzmazlengee/100 WBC (Bld)20.4 %Low20.5-60.0[facility] HospitalMCH Auto (RBC) [Entitic mass]on 50-99-8066CRM (RBC) [Entitic mass]32.5 pg26.7-34.0[facility] HospitalMCHC Auto (RBC) [Mass/Vol]on 99-00-0733OWSQ (RBC) [Mass/Vol]33.1 g/dL29.9-35.2FUK HealthcareMCV Auto (RBC) [Entitic vol]on 34-52-7102ZJL (RBC) [Entitic vol] 98.4 fL81.0-99.0[facility] HospitalMonocytes Auto (Bld) [#/Vol]on 40-41-3684Exugkxdou (Bld) [#/Vol]0.5 10 3/uL0.3-0.8[facility] HospitalMonocytes/100 WBC Auto (Bld)on 34-74-0491Xbdffnqdz/100 WBC (Bld)8.6 % 1.7-12.0[facility] HospitalNeutrophils Auto (Bld) [#/Vol]on 04-29-3507Zbpuhcadhye (Bld) [#/Vol]4.0 10 3/uL1.4-6.5FUK HealthcareNeutrophils/100 WBC Auto (Bld)on 17-78-9901Rkyltbtnetp/100 WBC (Bld)67.7 % 43.0-75.0[facility] HospitalNo Panel Informationon 04-10-2024 Eosinophils # (Auto)0.2 10 3/uL0.0-0.7FUK HealthcareFolate 20.20 ng/mL8.60-58.90[facility] HospitalImmature Granulocyte # (Auto)0.02 10 3/uL0.00-0.03[facility] HospitalPlatelet mean volume Auto (Bld) [Entitic vol]on 41-75-4907Ogqyxync mean volume (Bld) [Entitic vol] 9.7 fL9.5-13.5FUK HealthcarePlatelets Auto (Bld) [#/Vol]on 43-85-0096Rbgtnkcrk (Bld) [#/Vol]203 10 3/dK111-809AdmourqgwMercy Health Clermont HospitalRBC Auto (Bld) [#/Vol]on 59-85-6626VTE (Bld) [#/Vol]3.75 10 6/uLLow 4.20-5.40[facility] HospitalCPKon 70-00-6761RD [Catalytic activity/Vol]54 U/DAicijl56-820Qfs [facility] FoundationComment on above:Performed By: #### CK #### [facility] [address] [address] [address] Nancy HamATININEon 49-49-6905Hxkmsyiyod [Mass/Vol]0.91 mg/dLNormal 0.52-1.04The [facility] FoundationComment on above:Performed By: #### DARRELL SOW, ALT #### [facility] [address] [address] [address] Cruz ChangEGFR-AF CYMRAES>60Normal>=60The [facility] FoundationComment on above:Performed By: #### CREA, DLDL, ALT #### [facility] [address] [place], [place] [address] Dr. Nancy BelleGFR-NON AF CYMRAES>60Normal>=60The [facility] FoundationComment on above:Performed By: #### JUANJOSE, DLDL, ALT #### [facility] [address] [place], [place] [address] Dr. Nancy Fisher LDLon 32-30-1324Qjtjfiocooi in LDL [Mass/Vol]86 mg/dL NormalThe [facility] Clinic FoundationComment on above:Performed By: #### JUANJOSE, SPENCERL, ALT #### [facility] [address] [address] [address] Nancy SchaeferDL NORMALSEE [facility] CenterComment on above: Result Comment: <100 mg/dl OPTIMAL 100 - 129 mg/dl NEAR OR ABOVE OPTIMAL 130 - 159 mg/dl BORDERLINE HIGH 160 - 189 mg/dl HIGH >190 mg/dl VERY HIGHPerformed By: #### DARRELL SOW, ALT #### [facility] [address] [address] [address] Nancy KincaidSGPTon 87-58-0382FMA [Catalytic activity/Vol]40 U/LNormal9-52The [facility] FoundationComascension [facility] on above:Performed By: #### SPENCER SOWL, ALT #### [facility] [address] [address] [address] Nancy KincaidXR hand LT min 3V*on 54-45-8180JW hand LT min 3V*[facility] [employer] Other XR hand LT min 3V*[facility] [employer] Other XR hand LT min 3V*Noe [facility] [employer] Other XR hand LT min 3V*[address] [employer] Other XR hand LT min 3V*[facility] [employer] Other XR hand LT min 3V*[facility] [employer] [facility] [employer] Other XR hand LT min 3V*Patient: Naida Mane MR#: [id number] [employer] [facility] [employer] Other XR hand LT min 3V*19[place] [employer] [facility] Other XR hand LT min 3V*: 1960 Acct:[id number] [employer] [facility] [employer] Other XR hand LT min 3V*Age/Sex: 61 / F ADM Date: 07/08/21 [employer] Other XR hand LT min 3V*Loc: [facility] Room: Type: [facility] [employer] Other XR hand LT min 3V*Attending Dr: Irma Mc MD [employer] Other XR hand LT min 3V*Ordering Provider: Irma Mc MDFlypay [employer] [facility] [employer] Other XR hand LT min 3V*Date of Service: 07/08/21[employer] [facility] [employer] Other XR hand LT min 3V* XR/XR hand LT min 3V*: Arthritis of carpometacarpal (CMC) joint of [facility] Other XR hand LT min 3V*thumbPendleton [employer] [facility] [employer] Other XR hand LT min 3V*Copies to: Irma Mc MDMoodlerooms [employer] [facility] Other XR hand LT min 3V*4 viewsLEFT hand plain filmSky[employer] Other XR hand LT min 3V*COMPARISON:04/09/21[employer] Other XR hand LT min 3V*HISTORY:Status post LEFT trapezium ectomy.[employer] Other XR hand LT min 3V*There is resection of the trapezium. There is no new findings.[employer] Other XR hand LT min 3V* XR/XR hand LT min 3V*[employer] Other XR hand LT min 3V*IMPRESSION:Stable postoperative changes.[employer] Other XR hand LT min 3V*Impression dictated by: Bal Harley M.D.07/08/2021 10:31 [facility] [employer] Other XR hand LT min 3V*Dictation Location: [id number] [employer] [facility] [employer] Other xr hand LT min 3V*Transcribed By: [facility] 07/08/21 103 [employer] Other xr hand LT min 3V*Dictated By: Bal Harley DO 07/08/21 [facility] CenterSky[facility] Other xr hand LT min 3V*Signed By:[employer] Other xr hand LT min 3V*07/08/21 [facility] Other Vital Signs Date TimeVital SignValuePerforming PgvesnluaKlwtckkz86-66-0966 11:21-0500Body mass index (BMI) [Ratio]28.29 kg/u2HfxxeTeo Rivera MD Work Phone: [facility] RecoveryXyfgwgvwjo14-11-1901 11:21-0500Body irpiib76.11 kgTeo Rivera MD Work Phone: [facility] RecoveryItxcgxojla41-65-5094 11:21-0500Diastolic blood didoigid37 mm[Hg]Teo Rivera MD Work Phone: [facility] RecoveryAntswrdtxy64-14-0509 11:21-0500Systolic blood gsjwplfo037 mm[Hg]Teo Rivera MD Work Phone: [facility] RecoveryHzetfhxysl20-93-2090 11:14-0500Body .83 cmBenjamin Ball DO Work Phone: [facility]11-04-2024 11:14-0500 Body mass index (BMI) [Ratio]33.5 kg/d4Ronemjjq Ball DO Work Phone: 1(951)330-[address] [place], [place] 6283011-04-2024 11:14-0500 Body rrsumm19.98 kgBenjamin Ball DO Work Phone: 1(086)[facility] [place], [place] 6283011-04-2024 11:14-0500 Diastolic blood zygprftd75 mm[Hg]Sonido Ball DO Work Phone: 1(559)021-[address] [place], [place] 6283011-04-2024 11:14-0500 Heart rate71 /minBenjamin Ball DO Work Phone: 1(864)[address] [place], [place] 5596011-04-2024 11:14-0500 Respiratory rate12 /minBenjamin Ball DO Work Phone: 1(375)[address] [place], [place] 5596011-04-2024 11:14-0500 Systolic blood qcicxdcb725 mm[Hg]Sonido Ball DO Work Phone: 1(132)[address] [place], [place] 5596010-14-2024 18:37-0400 Body .83 cmDO Sonido Ball Work Phone: 1(718)[address] [place], [place] 5596010-14-2024 18:37-0400 Body mass index (BMI) [Ratio]34 kg/m2DO Sonido Ball Work Phone: 1(096)[address] [place], [place] 5596010-14-2024 18:37-0400 Body sgtwwmslobx12.3 [degF]DO Sonido Ball Work Phone: 1(309)[address] [place], [place] 5596010-14-2024 18:37-0400 Body dasjyz42.28 kgDO Sonido Ball Work Phone: 1(008)[facility] [place], [place] 6283010-14-2024 18:37-0400 Diastolic blood mruzwhnu01 mm[Hg]DO Sonido Ball Work Phone: 1(918)836-[address] [place], [place] 6283010-14-2024 18:37-0400 Heart rate78 /minDO Sonido Ball Work Phone: 1(125)562-[address] [place], [place] 6283010-14-2024 18:37-0400 Respiratory rate18 /minDO Sonido Ball Work Phone: 1(238)[address]10-14-2024 18:37-0400 SaO2% (BldA) [Mass fraction]98 %DO Sonido Ball Work Phone: 1(310)659-[address] [place], [place] 6283010-14-2024 18:37-0400 Systolic blood xmiyllpt145 mm[Hg]DO Sonido Ball Work Phone: 1(765)[address] [place], [place] 5596009-05-2024 10:50-0400 Diastolic blood pzhyzefh64 mm[Hg]DO Sonido Ball Work Phone: 1(415)[address] [place], [place] 5596009-05-2024 10:50-0400 Heart rate95 /minDO Sonido Ball Work Phone: 1(856)[address] [place], [place] 5596009-05-2024 10:50-0400 Respiratory rate16 /minDO Sonido Ball Work Phone: 1(401)[address] [place], [place] 5596009-05-2024 10:50-0400 SaO2% (BldA) [Mass fraction]94 %DO Sonido Ball Work Phone: 1(609)[address] [place], [place] 5596009-05-2024 10:50-0400 Systolic blood dmdfinbw665 mm[Hg]DO Sonido Ball Work Phone: 1(619)[address] [place], [place] 5596009-05-2024 10:05-0400 Body mbyjpjqgvob71.7 [degF]DO Sonido Ball Work Phone: 1(582)[address] [place], [place] 5596009-05-2024 06:00-0400 Body hazufq8286.88 cmDO Sonido Ball Work Phone: 1(144)[address] [place], [place] 5596009-05-2024 06:00-0400 Body ikucyg44 kgDO Sonido Ball Work Phone: 1(613)[address] [place], [place] 5596010-30-2023 13:30-0400 Body akyenm171.64 cmBenjamin Ball Other [place] [employer] [facility] [employer] Other 518025-30-3798 13:30-0400Body mass index (BMI) [Ratio] 32.36 kg/z5Tcwconkb Ball Other [employer] Other 10-30-2023 13:30-0400Body ityume27.95 kgBenjamin Ball Other [employer] Other 10-30-2023 13:30-0400Diastolic blood rvilynnv18 mm[Hg] Sonido Ball Other [employer] Other 10-30-2023 13:30-0400Respiratory rate12 /minBenjamin Ball Other [employer] Other 10-30-2023 13:30-0400Systolic blood wssipjqb658 mm[Hg] Sonido Ball Other [employer] Other 04-24-2023 14:30-0400Body cybwyp998.64 cmBenjamin Ball Other [employer] Other 04-24-2023 14:30-0400Body mass index (BMI) [Ratio] 33.76 kg/n6Gvkxhrmv Ball Other [employer] Other 04-24-2023 14:30-0400Body lglzsu04.89 kgBenjamin Ball Other [employer] Other 04-24-2023 14:30-0400Diastolic blood wapkvmke39 mm[Hg] Sonido Ball Other [employer] Other 04-24-2023 14:30-0400Respiratory rate16 /minBenjamin Ball Other [employer] Other 04-24-2023 14:30-0400Systolic blood fyzhyufp748 mm[Hg] Sonido Chaudhari Other [facility] [employer] [facility] [employer] Other 01-09-2023 13:15-0500Body ytxlbo003.64 cmBenroni Chaudhari Other [employer] Other 01-09-2023 13:15-0500Body mass index (BMI) [Ratio] 33.57 kg/n5Wdmqgmvcjeanie Chaudhari Other [employer] Other 01-09-2023 13:15-0500Body jwiamd69.35 kgBejeanie Chaudhari Other [employer] Other 10-19-2021 09:30-0400Body fzpgoj169.64 cmCasad Mc Other [facility] [employer] [facility] [employer] Other Encounters Encounter DateEncounter TypeCare ProviderFacilityStart: 06-01-2025 End: 56-67-6831Rybwaqj encounter procedureTEO RIVERA MD-[facility] Work Phone: Start: 06-01-2025 End: 42-42-3889zxxhqcliveDvrxefbz Ball DO Work Phone: [facility] Work Phone: Start: 04-23-2025 End: 56-95-8241tgzmniqcmeLhlmdydw Ball DO Work Phone: [facility] Work Phone: Start: 04-23-2025 End: 17-91-5115Dvteilu encounter procedureBefátimaroni Ball DO-[facility] Work Phone: Start: 46-27-5129Vya-patient / Non-visitBenroni Chaudhari DO-[facility] [employer] Work Phone: Start: 08-22-2024 End: 71-72-7667Khamxa Bibi Rivera MD Work Phone: [facility] OBStart: 08-22-2024 End: 05-14-6552Gdjbvn Bibi Rivera MD Work Phone: [facility] OBStart: 08-22-2024 End: 17-66-6126Ufjmknf encounter procedureTeo Rivera MD Work Phone: [facility] Work Phone: start: 08-22-2024 End: 36-82-1612Lzfwloud preventive med est patient 65yrs& olderTeo Rivera MD Work Phone: [facility] OBComment on above:Well woman exam with routine gynecological exam (Primary Dx); Other screening mammogramStart: 08-22-2024 End: 11-75-3588rcnwvpgtcjQULKU J PRINTYNot AvailableStart: 08-02-2024 End: 21-25-6812xjoxzfmkvmOwlsyudk Ball DO Work Phone: [facility] Work Phone: Start: 08-02-2024 End: 56-85-5811Aamvpma encounter procedureBenjamin Ball DO Work Phone: [facility] Work Phone: Start: 09-18-3055Wagzqub encounter statusBenjamin Ball DO Work Phone: [facility] Hospitaltart: 07-24-2024 End: 88-96-7321Lymsquqxb for general adult medical examination without abnormal findingsBenjamin Ball DO Work Phone: [facility]: 07-24-2024 End: 50-95-1631Rsaouzt encounter procedureBenjamin Ball DO Work Phone: [facility] Work Phone: Start: 93-17-9473Svj-patient / Non-visitBenjamin Ball DO Work Phone: [facility] Work Phone: Start: 50-50-7865tgcvaprmzrGM Irma Mc [facility] 07-03-2024 End: 55-79-3581caythgfueaOT Sonido Chaudhari Work Phone: [facility] Work Phone: Start: 07-03-2024 End: 98-11-4017Eennvoj encounter procedureDO Sonido Chaudhari Work Phone: [facility] Work Phone: Start: 06-30-2024 End: 33-69-8289hklmndgfxzGD Sonido Chaudhari Work Phone: [facility] Work Phone: Start: 06-30-2024 End: 47-13-5383Jvikzcf encounter procedureDO Sonido Chaudhari Work Phone: [facility] Work Phone: Start: 59-61-4109Ejw-patient / Non-visitDO Sonido Chaudhari Work Phone: [facility] Work Phone: Start: 06-15-2024 End: 94-95-7302nsywizewgpApkansln [facility]Car[facility]: 06-12-2024 End: 10-91-3125tweochueubQY Sonido Chaudhari Work Phone: [facility] Work Phone: Start: 06-12-2024 End: 85-97-6337Yqjsovr encounter procedureDO Sonido Chaudhari Work Phone: [facility] Work Phone: Start: 05-31-2024 End: 09-71-0916lkiomhjuzgSL Sonido Chaudhari Work Phone: [facility] Work Phone: Start: 05-31-2024 End: 77-04-4141Nsnafqq encounter procedureDO Sonido Ball Work Phone: [facility] Work Phone: Start: 35-79-2685Loz-patient / Non-visitDO Sonido Ball Work Phone: [facility] Work Phone: Start: 05-25-2024 End: 62-80-7557Vdanepoqv to same day surgery centerDO Sonido Ball Work Phone: [facility]: 05-25-2024 End: 64-68-1917rexkdtgpghYX Sonido Ball Work Phone: [facility] Work Phone: Start: 05-17-2024 End: 64-00-1447dxowqrpsprON Sonido Ball Work Phone: [facility] Work Phone: Start: 05-17-2024 End: 42-37-5697Uzehxjp encounter procedureDO Sonido Ball Work Phone: [facility] Work Phone: Start: 05-11-2024 End: 04-68-2179gtvbklhkkbQR Sonido Ball Work Phone: [facility] Work Phone: Start: 05-11-2024 End: 06-97-8116Nvkeepe encounter procedureDO Sonido Ball Work Phone: [facility]-Pre-Surgical Testing Work Phone: Start: 71-10-6905Voj-patient / Non-visitDO Sonido Ball Work Phone: [facility] Work Phone: Start: 12-08-2023 End: 33-98-8172kvehfgzozqLD Sonido Chaudhari Work Phone: [facility] Work Phone: Start: 12-08-2023 End: 23-86-0242Bcgsvnx encounter procedureDO Sonido Chaudhari Work Phone: [facility] Work Phone: Start: 10-11-2023 End: 17-78-8289khthxscdwqVhgqwtpd Ball Other [employer] Other Start: 93-55-5224Gkizaswjx encounterBenjamin BallFPG [facility] ClinicStart: 10-09-2023 End: 72-79-3277kvoeabdmbuVjwtcgca Ball Other [employer] Other Start: 04-07-5787Yrrdsfgnd encounterBenjamin BallFPG [facility] ClinicStart: 15-12-6588Wueecji encounter procedureDO Sonido Chaudhari Work Phone: [facility]-Start: 09-10-2023 End: 15-07-4956ayqqkjlbnrSutcpsxu Ball Other [employer] Other Start: 24-81-9200Mldrea outpatient visit 15 minutes Sonido BallFPG [facility] ClinicStart: 07-19-2023 End: 42-84-0359qkqowoehjcHwdoqjil Ball Other [employer] Other Start: 11-69-8905Qpppcpvos for general adult medical examination without abnormal findingsBenjamin BallFPG [facility] ClinicStart: 64-65-1254Ohezhpqv preventive med est patient 40-64yrsBenjamin BallFPG [facility] ClinicStart: 06-28-2023 End: 90-57-2003bvqepyvmfhMtraduxk Ball Other [phone] Other Start: 78-70-6291Umnaakjgs encounterBenjamin BallFPG [facility] ClinicStart: 05-28-2023 End: 08-88-7947nqykwixgsaLccykqax Ball Other [employer]Mood[employer] [facility] [employer] Other Start: 44-06-6053Mfogijcxk encounterBenjamin BallFPG [facility] ClinicStart: 05-26-2023 End: 37-50-3109loasjhwpalAS Sonido Ball Work Phone: [facility] Work Phone: Start: 05-26-2023 End: 07-21-8198Uxblips encounter procedureDO Sonido Ball Work Phone: [facility] Work Phone: Start: 03-01-2023 End: 08-09-7442sbckujqfcuUyeqjmnc Ball Other [employer] [employer] Other Start: 77-20-3414Jjfzcqixn encounterBenjamin BallFPG [facility] ClinicStart: 01-25-2023 End: 35-87-7197pyretsyrltWpwkzhdl Ball Other noMoodlerooms [employer] [employer] Other Start: 27-09-8972Szxbqcypn encounterBenjamin BallFPG [facility] ClinicStart: 01-11-2023 End: 04-12-3361vgogyjyihpIrrzpqrw Ball Other noMoodlerooms [employer] [facility] [employer] Other Start: 94-47-8869Bvubtc outpatient visit 15 minutes Sonido BallFPG [facility] ClinicStart: 64-65-4326Ngtsoe outpatient visit 15 minutesColleen CalveyFPG [facility] OrthopedicsStart: 01-08-2023 End: 59-26-6986lfogannixdXK Sonido Ball Work Phone: [facility] Work Phone: Start: 01-08-2023 End: 40-80-4935Ezafhiv encounter procedureDO Sonido Chaudhari Work Phone: [facility] Start: 12-28-2022 End: 87-10-8742hxccgdjutfLdtmzvve Ball Other [employer] Other Start: 37-64-3110Dwwuvrdca encounterBenjachery Chaudhari Medical ClinicStart: 11-02-2022 End: 37-56-7106jiinrmrgkwRheqtahr Ball Other [employer] Other Start: 78-19-3416Slizmbwsw encounterBenjachery Chaudhari Medical ClinicStart: 10-09-2022 End: 81-03-7316epovfyohrcUgkksobz Ball Other [employer] Other Start: 60-51-9470Kljmhnccu encounterBenroni Chaudhari Medical ClinicStart: 09-28-2022([facility]) [facility] Scheduled Sonido Chaudhari Medical ClinicStart: 09-28-2022 End: 92-23-0410pdvzuopgwlFvxaodqc Ball Other [employer] Other Start: 09-06-3688Eqgnj health examinationBejeanie Chaudhari Other [employer] Other Start: 05-15-2022 End: 49-43-9657Zyiasqc encounter procedureDO Sonido Chaudhari Work Phone: [facility] Start: 09-04-2021 End: 52-88-1169dvnxadoldpHU SONIDO CHAUDHARIFacility:S2Ddevl: 65-80-0172Zcrxjf outpatient visit 15 minutesColleen CalvMartha Tyson OrthopedicsStart: 11-29-2020 End: 01-30-7057bvctsdvpaaET NONE LISTED REQUESTFacility:H1 Procedures DateProcedureProcedure DetailPerforming ClinicianStart: 82-13-2705Uweqeldch mammography of bilateral breastsBenroni Ball DO Work Phone: Start: 95-68-3247Nhkkv X-ray of right handBenjamin Ball DO Work Phone: Start: 53-92-4024Uryud X-ray of right handDO Sonido Ball Work Phone: Start: 25-74-7371Gadczkbxo mammography of bilateral breastsDO Sonido Ball Work Phone: Start: 93-61-7538Bklla reconstructionDO Sonido Ball Work Phone: Start: 46-35-8706Oyhoukevdsgtk of median nerveDO Sonido Ball Work Phone: Start: 67-33-0183Msgpv X-ray of right thumbDO Sonido Ball Work Phone: Start: 68-33-8744Waxvw X-ray of right handDO Sonido Ball Work Phone: Start: 24-30-0647Bmwpvmuqaqw observation [Identifier] in Cervix by Cyto stainTeo Rivera MD Work Phone: start: 05-26-2023 End: 43-60-7525Bcejthqyh mammography of bilateral breastsDO Sonido Ball Work Phone: Start: 92-36-7851Imbdy X-ray of right handDO Sonido Ball Work Phone: Start: 78-99-8946Ugymfncek mammography of bilateral breastsDO Sonido Ball Work Phone: Start: 22-28-9341Dbuvtsqep for malignant neoplasm of colonBenroni Chaudhari Other Start: 11-52-4249Jgeoytn examination of patient Sonido Chaudhari Other Depression screeningBenjachery Ball Other Depression screeningBenroni Chaudhari Other Plan of Treatment DateCare ActivityDetailAuthorStart: 41-91-1928Oflzwfgtf for malignant neoplasm of cervixNOMS HealthcareStart: 08-22-2024 End: 82-58-9721RUI Breast - bilateral screeningBilateral screening mammogram with tomosynthesis Imaging Routine Other screening mammogram Expected: 08/22/2024 (Approximate), Expires: 11/20/2025[facility] Work Phone: comment on above:Expected: 08/22/2024 (Approximate), Expires: 11/20/2025Start: 08-22-2024 End: 48-74-3950Cbadwil encounter yjwsqpuaz74/03/2024 11:30 AM EST [facility] [address] [place] [id number] Teo Rivera MD [address] [place] [address] Well woman exam with routine gynecological exam; Other screening mammogramNOMS [facility] OBComment on above:Well woman exam with routine gynecological exam; Other screening mammogramStart: 55-03-8523Cycon X-ray of right handXR hand RT min 3V*[facility]: 73-56-5324XA Hand - right GE 3 [facility]: 06-96-5368Zfbigjqjiaka Vaccine: 65+ Years (1 of 1 - PCV)Pneumococcal Vaccine: 65+ Years (1 of 1 - PCV)[facility] HealthcareStart: 70-76-6125Exvyk X-ray of right handXR hand RT min 3V*[facility]: 41-01-7613CA Hand - right GE 3 [facility]: 76-86-7661Aszgwpgjp for malignant neoplasm of breastMammogramNOMS HealthcareStart: 85-97-3803LxsccrmilMercy Health Clermont Hospital Start: 78-05-0309NptaoiyxjBarberton Citizens Hospitaltart: 70-14-2472Omdnq X-ray of right thumbXR finger RT thumbBarberton Citizens Hospitaltart: 19-67-9789PZ Thumb - right ViewsBarberton Citizens Hospitaltart: 68-28-1202Wxawykbhy vaccinationInfluenza Vaccine (#1)[facility] HealthcareStart: 84-08-3224Saynn X-ray of right handXR hand RT min 3V*[facility]: 64-33-4490LC Hand - right GE 3 ViewsBarberton Citizens Hospitaltart: 28-01-9522Zldppwhxd for malignant neoplasm of cervixHPV/CotestNOMS HealthcareStart: 26-48-3075Qxkddybxg for malignant neoplasm of colonNOMS HealthcarePatient EducationKnow your [facility] Work Phone: [facility] referralC[facility] Work Phone: [facility] Immunizations Immunization DateImmunizationNotesCare FrixehwhUfppuytc75-84-0223pzbswzakj virus vaccine, unspecified formulationTeo Rivera MD Work Phone: [facility] CenterIdoqjcvniq06-63-3648xfwbfskwu, injectable, quadrivalent, preservative Sydnie Rivera MD Work Phone: [facility] CenterKfgjquohno02-08-7125FHBGL-29 mRNA-1273 (Moderna) DO Sonido Chaudhari Work Phone: [facility]09-15-2021influenza, injectable, quadrivalent, preservative Sydnie Rivera MD Work Phone: [facility] CenterMgvljucgzv23-64-1590TJEWV-95 Ad26.COV2.S (Marianela)DO Sonido Chaudhari Work Phone: [facility]09-30-2020influenza, injectable, quadrivalent, preservative Sydnie Rivera MD Work Phone: [facility] CenterHwjibxwqje04-53-8615vgbxhktul virus vaccine, split virus (incl. purified surface antigen)Sonido Chaudhari Other [place] [facility] Other 638922-53-1471jcikqynkr virus vaccine, unspecified formulationDO Sonido Chaudhari Work Phone: [facility]07-09-2019Kenalog -40 Cary Mc Other [employer] Other 05-732082-27-9052Vlwklma -40 Cosara Mc Other noMoodlerooms [facility] Other 08-323744-34-8923amlqartjtn, tetanus toxoids and acellular pertussis vaccine, unspecified formulationCarlofátimaroni Chaudhari Other [facility] Payers DatePayer CategoryPayerPolicy [id number] Health InsuranceMEDICAL MUTUAL [id number] [id number]-hil [id number] [id number] [id number] [id number] [id number] [id number] [id number] [id number] Social History DateTypeDetailFacilityUnknown if ever smokedNort [facility]) Other Start: 08-17-2023 End: 85-11-4094Ryl Assigned At [facility] HealthcareStart: 03-06-2021 End: 61-04-5947Ooplqeu smoking status NHISNever smoked tobacco (finding) [facility]: 83-01-9810Ule Assigned At [facility]art: 08-02-2024 End: 30-23-8747IbxOvwwdr (finding)[facility]: 54-23-6137Naljwvr use and exposureSmokeless tobacco non-userNOMN Healthcare Start: 08-10-2024 End: 97-10-4531Qfcgmhoji beverage intakeCurrent drinker of alcohol (finding)[facility] HealthcareStart: 08-10-2024 End: 65-16-0122Qhyqxctiv beverage intakeNOMN HealthcareStart: 75-60-0291Tfhljrv CommentCaffeine intake: >4 cups per day coffeeNOMN HealthcareStart: 1960 Sex assigned at birthNot on fileNOMS HealthcareHow often to you have a drink containing alcohol?Monthly or lessNOMS HealthcareHow many standard drinks containing alcohol do you have on a typical day?1 or 2NOMS HealthcareHow often do you have 6 or more drinks on 1 occasion?Less than monthlyN[facility]S [facility] Medical Equipment Procedure CodeEquipment CodeEquipment Original TextEquipment IdentifierDates TrapeziectomyTendon/ligament bone anchor, non-bioabsorbable [id number] FDAStart: 53-87-9664Jorzusbollgey Tendon/ligament bone anchor, non-bioabsorbable )[id number] FDAStart: 05-25-2024 Goals DatePatient GoalDesired Activity/State Clinical Notes 07-08-2021 to 04-23-2025 Note Date & ZjcqZsnvLympkroe67-87-4188 Evaluation note* Diagnosis Onset Date Resolution Status Admit Date Hypertension acuteAugust 2024 12:16pmCOVIDnoneactiveAugust 2024 12:16pm [facility] Work Phone: 1([phone]) 177-135512-03-2024 History of Present illness Narrative* Teo Rivera MD - 08/22/2024 11:30 AM EST Images from the original note were not included. Teo Rivera MD Obstetrics and Gynecology Patient: Naida Mane, : 1960 (64 y.o.) DOS 08/22/24 Exam Date: 08/22/2024 HPI: She is well. 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 Sig Documenting Provider Last Dose Status atorvastatin (Lipitor) 10 MG tablet [id number] No Take 10 mg by mouth in the morning. Historical Provider, Taking Active levothyroxine (Synthroid) 137 MCG tablet [id number] No Take by mouth Daily before meals. Historical Provider, Taking Active lisinopril 5 MG tablet [id number] No Take 5 mg by mouth in the morning. Historical Provider, Taking Active Multiple Vitamins-Minerals (CENTRUM ADULT PO) [id number] No Take by mouth. Historical Provider, Taking Active No Known Allergies Past Medical History: Diagnosis Date Anemia Fibrocystic breast 1999 Mitral valve prolapse Rotator cuff tear 1999 bilateral Thyroid disease (CMS/HCC) Past Surgical History: Procedure Laterality Date BI BREAST CYST ASPIRATION LEFT Left 2009 BREAST BIOPSY 2008 COLPOSCOPY 2019 HAND SURGERY 2020 TUBAL LIGATION [...] for exam: Answer: screen documented in this encounterSaint Mary's Health CenterNuqxieioii63-25-6385 Note [id number]#1.00[facility]08-28-2024 Evaluation note* Diagnosis Onset Date Resolution Status Admit Date Arthritis of carpometacarpal (CMC) joint of right thumb acuteAugust 2023 8:49amRight carpal tunnel syndromeacuteAugust 2023 8:49amPain of right handdeletedAugust 2023 8:49amArthritis of carpometacarpal (CMC) joint of right thumbacuteSeptember 2023 8:53amOther specified postprocedural statesacuteSeptember 2023 8:53amRight carpal tunnel syndromeacuteSeptember 2023 8:53amArthritis of carpometacarpal (CMC) joint of right thumbacuteOctober 2023 8:43amOther specified postprocedural statesacuteOctober 2023 8:43amRight carpal tunnel syndrome acuteOctober 2023 8:43amLocal reaction to bee stingnoneactiveOctober 2023 6:19pmAnemiaacuteNovember 2023 10:57amHypercholesteremiaacuteNov2023 10:57amHypertensionacuteNov2023 10:57amHypothyroidacute July 24, 2024 10:57amObesityacuteNov2023 10:57amPrimary insomnia acuteNov2023 10:57amScreening mammogram for breast canceracute July 24, 2024 10:57amWellness examinationacuteNov2023 10:57am Arthritis of carpometacarpal (CMC) joint of right thumbacuteNovember 2023 8:38amOther specified postprocedural statesacuteNovember 2023 8:38amRight carpal tunnel syndromeacuteNovember 2023 8:38am [facility] Work Phone: 1(572) 116-917512-22-2023 Evaluation note* Encounter Date Diagnosis Assessment Notes Treatment Notes Treatment Clinical Notes Aug, Acute bronchitis due to other sp ecified organisms (ICD-10 - J20.8) Instructed to use Robitussin or Mucinex for cough, saline or Flonase NS for congestion, Tylenol forpain and fever. Aug,3Primary hypertension (ICD-10 - I10)This patient is instructed to consume a healthy, low-fat, low-salt diet. They are also encouraged to continue exercise to achieve/maintain a normal BMI. Avoid Sudafed in cold medication [employer] Other 10-30-2023 Evaluation note* Encounter Date Diagnosis Assessment Notes Treatment Notes Treatment Clinical Notes Jun, Wellness examination (ICD-10 - Z 00.00) Healthy diet and exercise. Reviewed age-appropriate preventive testing recommended. Jun,3Primary hypertension (ICD-10 - I10)This patient is instructed to consume a healthy, low-fat, low-salt diet. They are also encouraged to continue exercise to achieve/maintain a normal BMI. Jun,Hypercholesteremia (ICD-10 - E78.00)Instructed on diet and exercise with continued statin therapy.Discussed the beneficial effects of lowering cholesterol in reducing the risk for cerebrovascular and cardiovascular disease. Jun,utoimmune thyroiditis (ICD-10 - E06.3)Clinically euthyroid, yearly TSH Jun,Other specified hypothyroidism (ICD-10 - E03.8) Jun,Screening mammogram for breast cancer (ICD-10 - Z12.31)Instructed patient on monthly SBE and yearly mammograms. 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) Cool compresses, Benadryl at [employer] Other 04-21-2023 Evaluation note* Encounter Date Diagnosis Assessment Notes Treatment Notes Treatment Clinical Notes Dec, Primary osteoarthrit is of first carpometacarpal joint of right hand (ICD-10 - M18.11) Non surgical options discussed to include - topical and oral NSAIDs - use of heat and ice - bracing - hand therapy - use of lidocaine patches - use of turmeric/curcumin and Glucosamine/Chondroitin - oral and injectable steroids Surgical options discussed to include - trapeziectomy LRTI with carpal tunnel release Patient would like to think about options and she will contact the office if she wishes to proceed Dec,Right carpal tunnel syndrome (ICD-10 - G56.01) Dec,Right hand pain (ICD-10 - M79.641) [employer] Other 02-13-2023 Evaluation note* Encounter Date Diagnosis Assessment Notes Treatment Notes Treatment Clinical Notes Oct, Obesity (ICD-10 - E66.9) [employer] Other 01-20-2023 Evaluation note* Encounter Date Diagnosis Assessment Notes Treatment Notes Treatment Clinical Notes Sep, Essential hypertension (ICD-10 - I10) [employer] Other 01-09-2023 Evaluation note* Encounter Date Diagnosis Assessment Notes Treatment Notes Treatment Clinical Notes Sep, Acute bronchitis due to other sp ecified organisms (ICD-10 - J20.8) Instructed to use Robitussin or Mucinex for cough, saline or Flonase NS for congestion, Tylenol forpain and fever. Sep,Essential hypertension (ICD-10 - I10)This patient is instructed to consume a healthy, low-fat, low-salt diet. They are also encouraged to continue exercise to achieve/maintain a normal BMI. Sep,Obesity (BMI 30.0-34.9) (ICD-10 - E66.9)This patient has been instructed on a low-fat, high-fiber diet. They are instructed to reduce calori es, portion sizes and snacks. It is recommended that they exercise for 30 minutes, 3-5 times weekly. Initiate GLP-1 - reviewed mode of action, side effects w/ patient [employer] Other 10-19-2021 Evaluation note* Encounter Date Diagnosis Assessment Notes Treatment Notes Treatment Clinical Notes Jun, Arthritis of carpome tacarpal (CMC) joint of left thumb (ICD-10 - M18.12) Patient instructed on gentle motion and strength exercise. Patient is progressing well from surgery. We discussed the importance of continuing motion and strength exercise. Jun,rimary osteoarthritis of first carpometacarpal joint of right hand (ICD-10 - M18.11) All treatment options as well as risks of the proposed procedure were thoroughly discussed with thepatient including bleeding, nerve and vessel injury, infection, persistent pain, stiffness, failureof procedure, mechanical failure, need for further surgery, DVT, as well as risks of anesthesia. Patient has admitted full understanding of these risks and would like to proceed. We will obtain updated right hand xrays at next appointment for surgical treatment Jun,ight carpal tunnel syndrome (ICD-10 - G56.01) Jun,arpal tunnel syndrome, left (ICD-10 - G56.02) Jun,ain of right thumb (ICD-10 - M79.644) Jun,eft wrist pain (ICD-10 - M25.532) Jun,ight wrist pain (ICD-10 - M25.531) Jun,Other specified postprocedural states (ICD-10 - Z98.890) [facility] [employer] Other Evaluation noteNo assessment information available [facility] Work Phone: Evaluation noteNo InformationNortDanville State Hospital [employer] Other Evaluation note* Diagnosis Onset Date Resolution Status Arthritis of carpometacarpal (CMC) joint of right thumb acutePain of right handacuteRight carpal tunnel syndromeacute [facility] Work Phone: Evaluation note* Diagnosis Onset Date Resolution Status Arthritis of carpometacarpal (CMC) joint of right thumb acutePain of right handacuteRight carpal tunnel syndromeacuteArthritis of carpometacarpal (CMC) joint of right thumbacuteOther specified postprocedural statesacuteRight carpal tunnel syndromeacute [facility] Work Phone: Evaluation note* Diagnosis Onset Date Resolution Status Arthritis of carpometacarpal (CMC) joint of right thumb acutePain of right handacuteRight carpal tunnel syndromeacuteArthritis of carpometacarpal (CMC) joint of right thumbacuteOther specified postprocedural statesacuteRight carpal tunnel syndromeacuteArthritis of carpometacarpal (CMC) joint of right thumbacuteOther specified postprocedural statesacuteRight carpal tunnel syndromeacute [facility] Work Phone: Evaluation note* Diagnosis Well woman exam with routine gynecological exam- Primary Routine gynecological examination Other screening mammogram documented in this encounter [facility] Healthcare[facility] note* Diagnosis Onset Date Resolution Status Admit Date Hypertension acuteAugust 2024 12:16pmCOVIDnoneactiveAugust 2024 12:16pm [facility] Work Phone: History general Narrative - Reported* Type Description Date Medical History HBP Medical HistoryHypothyroidismMedical HistoryhypertensionSurgical Historytubal ligationSurgical Historyright shoulder repairHospitalization Historyas above [employer] Other Hisdplh general Narrative - Reported* Type Description Date Medical History Hyperlipidemia type II Medical HistoryDepression screeningMedical HistoryObesityMedical HistoryGAD (generalized anxiety disorder)Medical HistoryPrimary insomniaMedical History Gastroesophageal reflux disease with esophagitis without hemorrhageMedical HistoryAutoimmune thyroiditisMedical HistoryEssential hypertensionMedical HistoryBronchitisMedical HistoryVasovagal syncopeMedical HistoryCOVID-19Medical HistoryPrimary osteoarthritis of knees, bilateralMedical HistoryAge-related osteoporosis without current pathological fractureMedical HistoryInterstitial granulomatous dermatitisSurgical Historytubal ligationSurgical Historyright shoulder repairSurgical HistoryARTHROPLASTY, INTERPOSITION, INTERCARPAL/CARPOMETACARPAL JOINTS, left thumburgical HistoryCARPAL TUNNEL ISWFKTZ67/2021Surgical HistoryREMOVAL OF WRIST BONE, EXCISION OF YJPWYWSUO79/2021Surgical HistoryCOLONOSCOPYHospitalization Historyas above [facility] Other HisEdlogics general Narrative - Reported* Type Description Date Medical History Hyperlipidemia type II Medical HistoryDepression screeningMedical HistoryObesityMedical HistoryGAD (generalized anxiety disorder)Medical HistoryPrimary insomniaMedical History Gastroesophageal reflux disease with esophagitis without hemorrhageMedical HistoryAutoimmune thyroiditisMedical HistoryEssential hypertensionMedical HistoryBronchitisMedical HistoryVasovagal syncopeMedical HistoryCOVID-19Medical HistoryPrimary osteoarthritis of knees, bilateralMedical HistoryAge-related osteoporosis without current pathological fractureMedical HistoryInterstitial granulomatous dermatitisSurgical Historytubal ligationSurgical Historyright shoulder repairSurgical HistoryCARPAL TUNNEL UNYUVSI32/2021Surgical HistoryLeft Trapeziectomy/LRTIurgical HistoryCOLONOSCOPYHospitalization Historyas above [employer] Other Hissttn general Narrative - Reported* Type Description Date Medical History Hyperlipidemia type II Medical HistoryDepression screeningMedical HistoryObesityMedical HistoryGAD (generalized anxiety disorder)Medical HistoryPrimary insomniaMedical History Gastroesophageal reflux disease with esophagitis without hemorrhageMedical HistoryAutoimmune thyroiditisMedical HistoryEssential hypertensionMedical HistoryBronchitisMedical HistoryVasovagal syncopeMedical HistoryCOVID-19Medical HistoryPrimary osteoarthritis of knees, bilateralMedical HistoryAge-related osteoporosis without current pathological fractureMedical HistoryInterstitial granulomatous dermatitisSurgical Historytubal ligationSurgical Historyright shoulder repairSurgical HistoryCARPAL TUNNEL YYABKNY74/2021Surgical HistoryLeft Trapeziectomy/LRTIurgical ZtoohvpBIZUTYWKEZY2120Pjptxhjvtsbpzwr History as above [employer] Other Hospital Discharge instructions Additional Instructions DR. [...] to decrease risk of infection after surgery [facility] Work Phone: Reason for referral (narrative)No reason for referral information availableOhiohealth Grove City [facility] Hospital Work Phone: Summary Purpose Family History No Family History Records Found Relationship Condition Age at Onset Recorded Date/T jesse Not Specified Malignant neoplasm of lung Unknown fatherCerebrovascular accident (CVA)UnknownHypertensionUnknownCongestive heart failureUnknownAlcohol abuseUnknown Relationship Condition Age at Onset Recorded Date/T jesse Not Specified Malignant neoplasm of lung Unknown fatherCerebrovascular accident (CVA)UnknownHypertensionUnknownCongestive heart failureUnknownAlcohol abuseUnknownfatherHistory of strokeUnknownDeceasedUnknown Not SpecifiedMalignant neoplasmUnknown Relationship Condition Age at Onset Recorded Date/T jesse mother Malignant neoplasm of lung Unknown DeceasedUnknownfatherAlcohol abuseUnknownCongestive heart failureUnknown HypertensionUnknownCerebrovascular accident (CVA)UnknownbrotherMalignant melanomaUnknown Advance Directives No Advanced Directives Records Found Advance Directive Response Recorded Date/ Time Advance Directives No February 11 8 5:40pm Advance Directive Response Recorded Date/ Time Advance Directives No February 11 8 4:40pm Chief Complaint and Reason for Visit Chief Complaint Z12.31 Chief Complaint OP/SP RIGHT HAND IRON N WANTS TO DISCUSS SURGERY M18.10 - Unilateral primary osteoarthritis of firsReason for VisitArthritis of carpometacarpal (CMC) joint of right thumb Pain of right hand Right carpal tunnel syndrome Chief Complaint Right Hand Pain, Car pal Tunnel Chief Complaint Right Hand Pain, Car pal Tunnel H&P right thumb trapeziectomy LRTI/RCTRReason for VisitArthritis of carpometacarpal (CMC) joint of right thumb Pain of right hand Right carpal tunnel syndrome Chief Complaint Right Hand Pain, Car pal Tunnel H&P right thumb trapeziectomy LRTI/RCTR Right Hand Pain, Carpal TunnelReason for VisitArthritis of carpometacarpal (CMC) joint of right thumb Pain of right hand Right carpal tunnel syndrome Chief Complaint Right Hand Pain, Car pal Tunnel H&P right thumb trapeziectomy LRTI/RCTR Right Hand Pain, Carpal Tunnel Right Hand Pain, Carpal Tunnel Z12.31Reason for VisitArthritis of carpometacarpal (CMC) joint of right thumb Pain of right hand Right carpal tunnel syndrome Chief Complaint Right Hand Pain, Car pal Tunnel H&P right thumb trapeziectomy LRTI/RCTR Right Hand Pain, Carpal Tunnel Right Hand Pain, Carpal Tunnel Z12.31 2 WK POST OPReason for VisitArthritis of carpometacarpal (CMC) joint of right thumb Pain of right hand Right carpal tunnel syndrome Arthritis of carpometacarpal (CMC) joint of right thumb Other specified postprocedural states Right carpal tunnel syndrome Chief Complaint Right Hand Pain, Car pal Tunnel H&P right thumb trapeziectomy LRTI/RCTR Right Hand Pain, Carpal Tunnel Right Hand Pain, Carpal Tunnel Z12.31 2 WK POST OP 3 WEEKS XR OUT OF CASTReason for VisitArthritis of carpometacarpal (CMC) joint of right thumb Pain of [...] 2 WK POST OP 3 WEEKS M18.11 G56.01Reason for VisitArthritis of carpometacarpal (CMC) joint of right thumb Pain of [...] WEEKS M18.11 G56.01 yellow jacket sting right handReason for VisitArthritis of carpometacarpal (CMC) joint of right thumb Pain of [...] Right carpal tunnel syndrome August 022023 8:38am Chief Complaint Admit Date [id number] Virtual, covid pos April 12:16pm Reason for Visit Admit Date Hypertension April 23, 2025 12: 16pm COVID April 23, 2025 12: 16pm Chief Complaint Admit Date [id number] Virtual, covid pos April 12:16pm Z12.31 June 01, 2025 7:45am Additional Source Comments INFORMATION SOURCE (unrecogn ized section and content) DATE CREATED AUTHOR 09/10/2021 [facility] DATE CREATED AUTHOR AUTHOR'S ORGANIZ ATION 08/24/2024 [facility] DATE CREATED AUTHOR AUTHOR'S ORGANIZ ATION 01/23/2025 [facility] DATE CREATED AUTHOR AUTHOR'S ORGANIZ ATION 06/07/2025 [facility] REASON FOR VISIT (unrecogniz ed section and content) Recheck Left Wristcoughing, headache, sinus congestion,No InformationNo InformationMedication ChangerefillRight Hand PainRashrefill?Mammogram resultsrefillwellnessSinuses, Cough, Congestion-Testing for COVID- [id number] InformationLab results Care Teams (unrecognized sec tion and content) Team Status: Active Member Role Status Dates Sonido Chaudhari DO Primary Care Provider Active Team Status: Inactive Member Role Status Dates Sonido Chaudhari DO Primary Care Provider Active Start: April 23, 2025 End: April 23enroni Chaudhari , DOAttending ProviderActiveStart: April 23, 2025 End: April 23, 2025 Team Status: Inactive Member Role Status Dates Sonido Chaudhari DO Primary Care Provider Active Start: June 01, 2025 End: June 01fay Rivera MDAttending ProviderActiveStart: June 01, 2025 End: June 01, 2025 Team Status: Active Member Role Status Dates Sonido Chaudhari DO Primary Care Provider Active Start: February 01, 2025 Sonido Chaudhari DOAttending ProviderActiveStart: February 01, 2025 Team Status: Inactive Member Role Status Dates Sonido Chaudhari DO Primary Care Provider Active Start: May 11, 2024 End: May 114Casad Mc MDAttending ProviderActiveStart: May 11, 2024 End: May 11, 2024 Team Status: Inactive Member Role Status Dates Sonido Chaudhari DO Primary Care Provider Active Start: May 17, 2024 End: May 17asad Mc MDAttending ProviderActiveStart: May 17, 2024 End: May 17, 2024 Team Status: Inactive Member Role Status Dates Sonido Chaudhari DO Primary Care Provider Active Start: May 25, 2024 End: May 25asad Mc MDAttending ProviderActiveStart: May 25, 2024 End: May 25, 2024 Team Status: Active Member Role Status Dates Sonido Chaudhari DO Primary Care Provider Active Start: May 25, 2024 Irma Mc MDAttending Provider, Other ProviderActiveStart: May 25, 2024 Team Status: Inactive Member Role Status Dates Sonido Chaudhari DO Primary Care Provider Active Start: May 31, 2024 End: May 31eferral SelfAttending ProviderActiveStart: May 31, 2024 End: May 31, 2024 Team Status: Inactive Member Role Status Dates Sonido Chaudhari DO Primary Care Provider Active Start: June 12, 2024 End: June 124Casad Mc MDAttending ProviderActiveStart: June 12, 2024 End: June 12, 2024 Team Status: Active Member Role Status Dates Sonido Chaudhari DO Primary Care Provide r, Attending Provider Active Start: June 15, 2024 Team Status: Inactive Member Role Status Dates Sonido Chaudhari DO Primary Care Provider Active Start: June 30, 2024 End: June 30Cali Abel ProviderActiveStart: June 30, 2024 End: June 30, 2024 Team Status: Inactive Member Role Status Dates Sonido Chaudhari DO Primary Care Provider Active Start: July 03, 2024 End: July 03Estee Person ProviderActiveStart: July 03, 2024 End: July 03, 2024 [...] Active Start: August 02, 2024 End: August 02Glenna Abelending ProviderActiveStart: August 02, 2024 End: August 02, 2024 Team Status: Active Member Role Status Dates Sonido Chaudhari DO Primary Care Provider Active Start: August 02, 2024 Glenna Cheneyending ProviderActiveStart: August 02, 2024 Team Status: Active Member Role Status Dates Provider Conversion Attending Provider Active St art: October 09, 2023 Team Status: Inactive Member Role Status Dates Sonido Chaudhari DO Primary Care Provider Active Start: December 08, 2023 End: December 07Cali Abel ProviderActiveStart: December 08, 2023 End: December 08, 2023 Team Status: Active Member Role Status Dates Sonido Chaudhari DO Primary Care Provider Active Start: December 08, 2023 Cali Cheney ProviderActiveStart: December 08, 2023 Team Status: Inactive Member Role Status Dates Sonido Chaudhari DO Primary Care Provider Active Cali Virk ProviderActive Team Status: Inactive Member Role Status Dates Sonido Chaudhari DO Primary Care Provider Active Cali Cheney ProviderActive Team Status: Active Member Role Status Dates Sonido Chaudhari DO Primary Care Provide r, Attending Provider Active Start: April 10, 2024 Team Status: Active Member Role Status Dates Sonido Chaudhari DO Primary Care Provider Active Start: June 30, 2024 Irma Mc MDAttrogerio ProviderActiveStart: June 30, 2024 Team MemberRelationshipSpecialtyStart DateEnd Date Sonido Chaudhari MD [address] [place] [id number] PCP - GeneralInternal Medicine04/05/23Team MemberRelationshipSpecialtyStart Date End Date Sonido Chaudhari MD [address] [place] [id number] PCP - GeneralInternal Medicine04/05/23 Goals (unrecognized section and content) Goals may [...] BE BASED ON THE PRIMARY CLINICAL RECORDS. [employer] [facility]. provides no warranty or guarantee of the accuracy or completeness of information in this document.
[2025-07-19 17:01] LABS: Hematocrit 35.8 % (36.0-48.0); Hemoglobin 11.9 g/dL (12.0-16.0); Immature Granulocytes Abs Auto 0.01 10^3/uL (0.00-0.03); Immature Granulocytes Pct Auto 0.2 % (0.0-0.5); Lymphocytes Absolute Auto 1.3 10^3/uL (1.2-3.8); Mean Corpuscular HGB Conc 33.2 g/dL (29.9-35.2); Mean Corpuscular Hemoglobin 31.8 pg (26.7-34.0); Mean Corpuscular Volume 95.7 fL (81.0-99.0); Platelet Count 196 10^3/uL (150-450); Red Blood Count 3.74 10^6/uL (4.20-5.40); White Blood Count 6.0 10^3/uL (4.0-11.0)
[2025-07-19 17:31] LABS: Alanine Aminotransferase 39 U/L (14-59); Albumin Globulin Ratio 1.0; Albumin Level 3.8 g/dL (3.4-5.0); Alkaline Phosphatase 100 U/L (46-116); Anion Gap 12.9; Aspartate Amino Transferase 17 U/L (15-37); Blood Urea Nitrogen 19.0 mg/dL (7.0-18.0); Calcium 9.6 mg/dL (8.5-10.1); Carbon Dioxide 28.9 mmol/L (21.0-32.0); Chloride 102 mmol/L (98-107); Cholesterol 187 mg/dL (<=200); Estimated GFR (African America >60 (>=60 mL/min/1.73m^2); Estimated GFR (Non-African Ame >60 (>=60 mL/min/1.73m^2); Globulin 3.7 g/dL; Glucose 125 mg/dL (74-106); HDL Cholesterol 47 mg/dL (40-60); Potassium 3.8 mmol/L (3.5-5.1); Sodium 140 mmol/L (136-145); Thyroid Stimulating Hormone 0.571 uIU/mL (0.358-3.740); Total Protein 7.5 g/dL (6.4-8.2); Triglycerides 281 mg/dL (<=150); VLDL CHOLESTEROL 56.2 mg/dL
== END 2025-07-19 16:07 | disposition home or self-care (01) ==
PROVIDERS: PCP Internal Medicine; Visit Provider Internal Medicine
DX: E06.3 Autoimmune thyroiditis (principal); E78.00 Pure hypercholesterolemia, unspecified; I10 Essential (primary) hypertension
CPT/HCPCS: 36415; 80053; 80061; 84443; 85025